=== PATIENT | male | born 1930 | race Asian ===

== ENCOUNTER 2019-12-22 23:55 | Inpatient (IN) | payer MEDICARE, OTHER ==
[~2019-12-22] VITALS: Ht 170.2 cm; Wt 56.7 kg
[2019-12-23] MEDS ORDERED: OLAN5TAB3 PO (02:53)
[2019-12-23] MEDS ORDERED: LEVO137T2 PO (02:53)
[2019-12-23] MEDS ORDERED: DONE5TAB7 PO (02:53)
[2019-12-23] MEDS ORDERED: CYCL30DR EACHEYE (02:53)
[2019-12-23] MEDS ORDERED: GABA-532 PO (02:53)
[2019-12-23] MEDS ORDERED: TRAZ-182 PO (02:53)
[2019-12-23] MEDS ORDERED: OMEP20TA20 PO (02:53)
[2019-12-23] MEDS ORDERED: GLIP5TAB3 PO (02:53)
[2019-12-23] MEDS ORDERED: TRAM50TA PO (02:53)
[2019-12-23] MEDS ORDERED: METF-442 PO (02:53)
[2019-12-23] MEDS ORDERED: CYAN-51 PO (02:53)
[2019-12-23] MEDS ORDERED: SODI15DR7 EACHEYE (02:53)
[2019-12-23] MEDS ORDERED: BIMA2.5D5 EACHEYE (02:53)
[2019-12-23] MEDS ORDERED: GABA-536 PO (02:53)
[2019-12-23] MEDS ORDERED: ICOS1CAP PO (02:53)
[2019-12-23] MEDS ORDERED: SIMV-46 PO (02:53)
[2019-12-23] MEDS ORDERED: AMLO5TAB4 PO (02:53)
[2019-12-23] MEDS ORDERED: BUPR75TA21 PO (02:53)
[2019-12-23] MEDS ORDERED: METO25TA6 PO (02:53)
[2019-12-23] MEDS ORDERED: BRIM5DRO2 EACHEYE (02:53)
[2019-12-23] MEDS ORDERED: NETA2.5D EACHEYE (02:53)
[2019-12-23 02:59] VITALS: BP 128/74
--- NOTE | 2019-12-23 03:23 | NUR ---
GPS RN NOTE: ADMISSION NOTE PT ARRIVED ON THE UNIT @ 0200, PT IS COMING FROM HOME, PT IS A/O X1-2, CALM, COOPERATIVE, FLAT, BLUNT AFFECT, CONFUSED, REDIRECTABLE. PER HOLD PT IS ON A 5150 HOLD DUE TO GD, PT WAS UNABLE TO WALK, RECALL SPECIFIC EVENTS, RECALL PLACE AND TIME AND WHERE HE WAS, HE BELIEVED THAT HE WAS THE POLICE AND THAT HE WAS IN [place]. PT HAS MEDICAL HX BPH, DM, HTN, GERD, HIGH CHOLESTEROL, DEMENTIA WITH PSYCHOSIS. WHEN ASKING PT DOES HE KNOW WHY HE IS HERE HE STATED THAT HE DOES NOT KNOW, HE DOES NOT KNOW HOW HE ENDED UP HERE, ONCE REDIRECTED PT APOLOGIZED AND SAID THAT HE HAS DIFFICULTY RECALLING THINGS, PT DENIES SI/HI, PT STATED HE HAS AUDITORY HALLUCINATION AND STATES THE VOICES DONT TELL HIM ANYTHING SERIOUS. PT SAID HE WAS A FORMER SMOKER AND QUIT 27 YEARS AGO, PT DENIES ANY ALCOHOL OR SUBSTANCE ABUSE. PT IS COVID NEGATIVE, PT DENIES PAIN AT THIS TIME, NO DISTRESS NOTED, VSS. SKIN ASSESSMENT DONE AND PATIENT HAD MULTIPLE ABRASIONS THROUGHOUT THE BODY AND WAS UNABLE TO RECALL WHAT HAPPENED. PT STATED THAT HE CAN'T REMEMBER IF HE GOT THE FLU VACCINE BUT HE GETS IT EVERY YEAR AND WOULD LIKE TO TALK TO HIS SON IN THE MORNING AND ASK HIM ABOUT IT, HE ALSO CAN NOT RECALL IF HE RECEIVED THE PNA VACCINE, WILL FOLLOW UP WITH FAMILY IN THE AM. DR. VYAS AND DR. ADAM WERE MADE AWARE OF THE PTS ARRIVAL ON THE UNIT, DR. ADAM SAID HE WAS GOING TO DO THE MED RECON, PT ADVISED OF HOLD, ADVISMENT AND PTS RIGHT OOKLET GIVEN TO THE PT, ALL NEEDS MET AT THIS TIME, WILL CONTINUE TO MONITOR Q15MIN FOR SAFETY AND BEHAVIOR.
[2019-12-23] MEDS ORDERED: DEXTROSE 50%-WATER 50 ML DISP.SYRIN IV PRN (03:30)
[2019-12-23] MEDS ORDERED: AMLODIPINE BESYLATE 5 MG TABLET PO PRN (03:30)
[2019-12-23] MEDS ORDERED: BLOOD SUGAR DIAGNOSTIC 1 EACH STRIP IN ONE (04:00)
[2019-12-23] MEDS ORDERED: MAGNESIUM HYDROXIDE 30 ML UDC PO PRN (04:00)
[2019-12-23] MEDS ORDERED: MAG HYDROX/AL HYDROX/SIMETH 30 ML UDC PO PRN (04:00)
[2019-12-23] MEDS: TEMAZEPAM 7.5 MG CAPSULE PO PRN ×2 (04:36→23:03)
--- NOTE | 2019-12-23 04:41 | NUR ---
GPS RN NOTE: INSOMNIA PT C/O OF HAVING DIFFICULTY SLEEPING, ADMIN RESTORIL PRN @ 4912, WILL REASSESS AND CONTINUE TO MONITOR Q15MIN FOR SAFETY AND BEHAVIOR
--- NOTE | 2019-12-23 06:18 | NUR ---
GPS RN NOTES: NOTIFIED PTS SON SA IN REGARDS TO HIS FATHERS ADMISSION. PER SON HIS FATHER WAS GETTING WORSE AT HOME LIVING WITH HIM. HE STATED THAT HE GAVE 5 EYE DROPS HIS DAD TAKES AT HOME TO THE HOSPITAL HE WAS ADMITTED BEFORE COMING TO [facility]. PTS SON SAID HE WILL CALL THE HOSPITAL TO CONFIRM WITH THEM IF THEY HAVE IT. UPON ADMISSION NO EYE DROPS WERE WITH HIM. SON WILL CALL BACK TO CONFIRM. THE SON ALSO STATED THAT HIS FATHER HAS NOT TAKEN HIS FLU AND PNEUMO VACCINE SINCE LAST YEAR. OFFERED PT FOR BOTH VACCINATION, PT SHOOK HIS HEAD AND STATED, "NO." EXPLAIN RISKS AND BENEFITS, PT STILL REFUSED X3. WILL ENDORSE TO DAY SHIFT. CONTINUE TO MONITOR.
[2019-12-23] MEDS: LEVOTHYROXINE SODIUM 137 MCG TABLET PO SCH (07:05)
[2019-12-23 08:00] VITALS: BP 102/56
[2019-12-23] MEDS: BLOOD SUGAR DIAGNOSTIC 1 EACH STRIP IN SCH ×4 (08:45→21:48)
[2019-12-23] MEDS: glipiZIDE 5 MG TABLET PO SCH ×2 (08:46→16:05)
[2019-12-23] MEDS: METFORMIN 500 MG TABLET PO SCH ×2 (08:46→16:05)
[2019-12-23] MEDS: TRAMADOL HCL 50 MG TABLET PO SCH ×2 (08:46→16:05)
[2019-12-23] MEDS: CYANOCOBALAMIN 500 MCG TABLET PO SCH (08:46)
[2019-12-23] MEDS ORDERED: Medication Not On Formulary EA (Icosapent Ethyl (Vascepa) 1 GM) PO SCH (09:00)
[2019-12-23] MEDS: TIMOLOL 0.5% SOLN OPHTH 5 ML BOTTLE EACHEYE SCH ×2 (09:03→17:42)
[2019-12-23] MEDS: BRIMONIDINE TARTRATE OPHT SOLN 5 ML BOTTLE EACHEYE SCH ×2 (09:03→17:42)
[2019-12-23] MEDS: SODIUM CHLORIDE 5% SOLN OPHTH 15 ML BOTTLE EACHEYE SCH ×4 (09:04→21:10)
[2019-12-23] MEDS: OLANZAPINE 5 MG/TAB.RAPDIS PO SCH ×2 (10:20→16:05)
[2019-12-23] MEDS: GABAPENTIN 400 MG CAPSULE PO SCH (10:21)
[2019-12-23] MEDS: DIVALPROEX SODIUM 125 MG CAP.SPRINK PO SCH ×3 (10:21→16:05)
--- NOTE | 2019-12-23 10:53 | NUR ---
DPOA Contact: SW called the pts son and DPOA, Zoila ([phone]), who stated that the pt has been living in his home with his but they can no longer take care of him. He stated that he would want the SW to assist with placement. SW asked for the pts son to send the DPOA paperwork so that it can be placed in the chart and then informed him of the discharge options. Pts son stated that he has heard of a snf facility called [facility] and would like a locked facility for the pt. SW stated that she will keep him updated.
--- NOTE | 2019-12-23 11:38 | NUR ---
Initial Discharge Plan: Pt currently resides with his son, Zoila ([phone]), in his home located at [address] [place] [address]. Per pts son, pt cannot return to the home and will need SNF placement. LUIS MIGUEL will work with the pt, the DPOA, and the MD regarding appropriate discharge planning. SW will form a safe and proper discharge plan.
[2019-12-23] MEDS: INSULIN REGULAR, HUMAN 100 UNIT/ML 3 ML VIAL SQ PRN (11:42)
[2019-12-23 16:00] VITALS: BP 111/66
[2019-12-23 16:13] LABS: BASOPHILS # (AUTO) 0.1 /CMM (0.0-0.2); BASOPHILS % (AUTO) 0.8 % (0.0-2.0); EOSINOPHILS % (AUTO) 1.1 % (0.0-6.0); HEMATOCRIT 41 % (39-51); HEMOGLOBIN 13.2 g/dL (13.5-17.5); LYMPHOCYTES # (AUTO) 2.1 /CMM (0.8-4.8); LYMPHOCYTES % (AUTO) 19.4 % (20.0-44.0); MEAN CORPUSCULAR HGB CONC 33 g/dl (31.0-36.0); MEAN CORPUSCULAR VOLUME 95 fL (80-96); MONOCYTES # (AUTO) 0.6 /CMM (0.1-1.30); MONOCYTES % (AUTO) 5.7 % (2.0-12.0); NEUTROPHILS # (AUTO) 7.9 /CMM (1.8-8.9); PLATELET COUNT (AUTO) 239 /CMM (150-450); RED BLOOD CELL COUNT(AUTO) 4.25 MIL/uL (4.5-6.0); WHITE BLOOD COUNT (AUTO) 10.8 K/uL (4.3-11.0)
[2019-12-23 16:51] LABS: ALBUMIN 3.1 g/dL (3.4-5.0); BILIRUBIN,TOTAL 0.4 mg/dL (0.2-1.0); CALCIUM, SERUM 8.7 mg/dL (8.5-10.1); CREATININE 1.2 mg/dL (0.6-1.3); MAGNESIUM 2.1 mg/dL (1.8-2.4); PHOSPHORUS 3.7 mg/dL (2.5-4.9); POTASSIUM 4.2 mmol/L (3.5-5.1); TOTAL PROTEIN, SERUM 6.8 g/dL (6.4-8.2)
[2019-12-23 17:00] LABS: PROSTATE SPECIFIC ANTIGEN SCR 2.05 ng/mL (0.00-4.00); THYROID STIMULATING HORMONE 0.47 uIU/mL (0.358-3.74)
[2019-12-23 20:17] VITALS: BP 97/59
[2019-12-23] MEDS: LATANOPROST EYE DROP 0.005% 2.5 ML BOTTLE EACHEYE SCH (21:07)
[2019-12-23] MEDS: SIMVASTATIN 20 MG TABLET PO SCH (21:10)
[2019-12-23] MEDS: GABAPENTIN 100 MG CAPSULE PO SCH (21:18)
[2019-12-23] MEDS ORDERED: GABAPENTIN 100 MG CAPSULE PO SCH (22:00)
--- NOTE | 2019-12-23 22:49 | NUR ---
GPS-RN NOTE: PATIENT BLOOD SUGAR WAS 50MG/DL. SNACKS GIVEN, TOLERATED WELL. RECHECKED AFTER 20MINS, BLOOD SUGAR RESULTED TO 62MG/DL. NOTIFIED DR. ADAM WITH ORDER TO DISCONTINUE GLUCOTROL 5MG PO BID NOTED AND CARRIED OUT.
--- NOTE | 2019-12-23 23:03 | NUR ---
GPS-RN NOTE: INSOMNIA PATIENT UNABLE TO SLEEP. ADMINISTERED RESTORIL 7.5MG PO ORDERED. WILL CONTINUE TO MONITOR FOR PT'S SAFETY.
[2019-12-24] MEDS: LORAZEPAM 0.5 MG TABLET PO PRN ×2 (02:22→20:52)
--- NOTE | 2019-12-24 02:22 | NUR ---
GPS-RN NOTE: ANXIETY PATIENT IS ANXIOUS AND RESTLESS. ADMINISTERED ATIVAN 0.5MG PO ORDERED. WILL CONTINUE TO MONITOR FOR PATIENT'S SAFETY.
[2019-12-24 06:46] LABS: ALANINE AMINOTRANSFERASE 52 U/L (12-78); ALBUMIN 2.9 g/dL (3.4-5.0); ALKALINE PHOSPHATASE 92 U/L (46-116); ASPARTATE AMINOTRANSFERASE 33 U/L (15-37); BILIRUBIN,TOTAL 0.3 mg/dL (0.2-1.0); CALCIUM, SERUM 8.8 mg/dL (8.5-10.1); CARBON DIOXIDE 28 mmol/L (21-32); CHLORIDE 103 mmol/L (98-107); CREATININE 1.4 mg/dL (0.6-1.3); GLUCOSE 110 mg/dL (74-106); POTASSIUM 4.3 mmol/L (3.5-5.1); SODIUM SERUM 141 mmol/L (136-145); TOTAL PROTEIN, SERUM 6.5 g/dL (6.4-8.2); UREA NITROGEN, BLOOD 38 mg/dL (7-18)
[2019-12-24] MEDS: LEVOTHYROXINE SODIUM 137 MCG TABLET PO SCH (07:00)
[2019-12-24] MEDS: BLOOD SUGAR DIAGNOSTIC 1 EACH STRIP IN SCH ×4 (07:17→21:52)
--- NOTE | 2019-12-24 07:17 | NUR ---
GPS TREATER: NOTES BLOOD GLUCOSE RANDOM LEVEL THIS MORNING DRAW DI=[phone].
--- NOTE | 2019-12-24 07:26 | NUR ---
GPS ACQUISITION MARKETING COORDINATOR: NOTES PT SOUNDS ASLEEP AT THIS TIME, PER REPORT PT DID NOT SLEEP ALL NIGHT. WILL CONTINUE TO MONITOR.
[2019-12-24] MEDS: CYANOCOBALAMIN 500 MCG TABLET PO SCH (08:50)
[2019-12-24] MEDS: TRAMADOL HCL 50 MG TABLET PO SCH ×2 (08:50→16:57)
[2019-12-24] MEDS: BRIMONIDINE TARTRATE OPHT SOLN 5 ML BOTTLE EACHEYE SCH ×2 (08:51→17:00)
[2019-12-24] MEDS: SODIUM CHLORIDE 5% SOLN OPHTH 15 ML BOTTLE EACHEYE SCH ×4 (08:51→21:52)
[2019-12-24] MEDS: GABAPENTIN 400 MG CAPSULE PO SCH (08:51)
[2019-12-24] MEDS: TIMOLOL 0.5% SOLN OPHTH 5 ML BOTTLE EACHEYE SCH ×2 (08:51→17:03)
[2019-12-24] MEDS: METFORMIN 500 MG TABLET PO SCH ×2 (08:51→17:03)
[2019-12-24] MEDS: DIVALPROEX SODIUM 125 MG CAP.SPRINK PO SCH ×3 (08:51→16:57)
[2019-12-24] MEDS: OLANZAPINE 5 MG/TAB.RAPDIS PO SCH ×2 (08:52→16:56)
--- NOTE | 2019-12-24 10:31 | NUR ---
gps greeter guest services: md visit seen by lj (acnp) with orders. orders acknowledged. code status change to dnr/dni per polst.
[2019-12-24] MEDS: RESTASIS EYE EACHEYE SCH ×2 (12:39→16:56)
[2019-12-24 16:00] VITALS: BP 123/52
[2019-12-24 19:55] VITALS: BP 105/65
--- NOTE | 2019-12-24 20:53 | NUR ---
GPS/RN PATIENT IS VERY AGITATED AT THIS, ATIVAN 0.5 MG PO WAS GIVEN ORDERED. WILL MONITOR.
[2019-12-24] MEDS: GABAPENTIN 100 MG CAPSULE PO SCH (21:53)
[2019-12-24] MEDS: SIMVASTATIN 20 MG TABLET PO SCH (21:53)
--- NOTE | 2019-12-24 22:00 | NUR ---
GPS/RN PATIENT IS MORE CALM AT THIS TIME, NO DISTRESS NOTED. WILL CONTINUE TO MONITOR.
[2019-12-24] MEDS: LATANOPROST EYE DROP 0.005% 2.5 ML BOTTLE EACHEYE SCH (23:03)
[2019-12-24] MEDS: TEMAZEPAM 7.5 MG CAPSULE PO PRN (23:49)
--- NOTE | 2019-12-24 23:53 | NUR ---
GPS/RN PATIENT IS STILL AWAKE, AGITATED AND RESTLESS, TEMAZEPAM PO ORDERED WAS GIVEN. WILL CONTINUE TO MONITOR.
[2019-12-25 02:08] LABS: APPEARANCE,URINE CLEAR (CLEAR); BILIRUBIN,URINE NEGATIVE (NEGATIVE); BLOOD, URINE NEGATIVE Ery/uL (NEGATIVE); COLOR,URINE YELLOW (YELLOW); KETONES,URINE TRACE (NEGATIVE); LEUKOCYTE ESTERASE ,URINE NEGATIVE (NEGATIVE); NITRITE, URINE NEGATIVE (NEGATIVE); PROTEIN,URINE NEGATIVE (NEGATIVE); UGLUCOSE NEGATIVE (NEGATIVE); UROBILINOGEN,URINE 0.2 EU/dL (0.2)
[2019-12-25 02:48] LABS: BACTERIA,URINE None seen /HPF (None Seen); RBC,URINE 0-2 /HPF (0-2); SQUAMOUS EPITHELIAL CELL,UR Few /HPF (None Seen); WBC,URINE 0-2 /HPF (0-3)
[2019-12-25] MEDS: LEVOTHYROXINE SODIUM 137 MCG TABLET PO SCH (06:16)
[2019-12-25 08:00] VITALS: BP 139/63
[2019-12-25] MEDS: RESTASIS EYE EACHEYE SCH ×2 (09:14→16:35)
[2019-12-25] MEDS: TIMOLOL 0.5% SOLN OPHTH 5 ML BOTTLE EACHEYE SCH ×2 (09:14→16:36)
[2019-12-25] MEDS: SODIUM CHLORIDE 5% SOLN OPHTH 15 ML BOTTLE EACHEYE SCH ×4 (09:15→21:55)
[2019-12-25] MEDS: BRIMONIDINE TARTRATE OPHT SOLN 5 ML BOTTLE EACHEYE SCH ×2 (09:15→16:35)
[2019-12-25] MEDS: BLOOD SUGAR DIAGNOSTIC 1 EACH STRIP IN SCH ×4 (09:15→21:59)
[2019-12-25] MEDS: CYANOCOBALAMIN 500 MCG TABLET PO SCH (09:15)
[2019-12-25] MEDS: METFORMIN 500 MG TABLET PO SCH ×2 (09:16→16:36)
[2019-12-25] MEDS: OLANZAPINE 5 MG/TAB.RAPDIS PO SCH ×2 (09:16→16:37)
[2019-12-25] MEDS: DIVALPROEX SODIUM 125 MG CAP.SPRINK PO SCH ×3 (09:16→16:36)
[2019-12-25] MEDS: TRAMADOL HCL 50 MG TABLET PO SCH ×2 (09:18→16:36)
[2019-12-25] MEDS: GABAPENTIN 400 MG CAPSULE PO SCH (09:26)
[2019-12-25 16:00] VITALS: BP 129/62
[2019-12-25 20:54] VITALS: BP 106/56
[2019-12-25] MEDS: SIMVASTATIN 20 MG TABLET PO SCH (21:55)
[2019-12-25] MEDS: GABAPENTIN 100 MG CAPSULE PO SCH (21:55)
[2019-12-25] MEDS: LATANOPROST EYE DROP 0.005% 2.5 ML BOTTLE EACHEYE SCH (21:55)
[2019-12-25] MEDS: INSULIN REGULAR, HUMAN 100 UNIT/ML 3 ML VIAL SQ PRN (22:03)
[2019-12-26] MEDS: TEMAZEPAM 7.5 MG CAPSULE PO PRN ×2 (00:24→22:21)
--- NOTE | 2019-12-26 00:24 | NUR ---
GPS RN NOTE: INSOMNIA Pt awake in gerichair, Restoril 7.5mg PO PRN given as ordered. Will continue to monitor.
[2019-12-26] MEDS: LORAZEPAM 0.5 MG TABLET PO PRN ×2 (02:42→22:20)
--- NOTE | 2019-12-26 02:43 | NUR ---
GPS RN NOTE: ANXIETY Pt noted to be restless and anxious. Ativan 0.5mg PO PRN administered as ordered. Will continue to monitor.
[2019-12-26] MEDS: LEVOTHYROXINE SODIUM 137 MCG TABLET PO SCH (06:32)
[2019-12-26 08:00] VITALS: BP 130/73
[2019-12-26] MEDS: RESTASIS EYE EACHEYE SCH ×2 (09:00→16:24)
[2019-12-26] MEDS: OLANZAPINE 5 MG/TAB.RAPDIS PO SCH ×2 (09:37→16:20)
[2019-12-26] MEDS: BLOOD SUGAR DIAGNOSTIC 1 EACH STRIP IN SCH ×5 (09:37→22:52)
[2019-12-26] MEDS: DIVALPROEX SODIUM 125 MG CAP.SPRINK PO SCH ×3 (09:37→16:20)
[2019-12-26] MEDS: METFORMIN 500 MG TABLET PO SCH ×2 (09:38→16:20)
[2019-12-26] MEDS: GABAPENTIN 400 MG CAPSULE PO SCH (09:38)
[2019-12-26] MEDS: CYANOCOBALAMIN 500 MCG TABLET PO SCH (09:38)
[2019-12-26] MEDS: TRAMADOL HCL 50 MG TABLET PO SCH ×2 (09:38→15:03)
[2019-12-26] MEDS: TIMOLOL 0.5% SOLN OPHTH 5 ML BOTTLE EACHEYE SCH ×2 (09:40→16:23)
[2019-12-26] MEDS: SODIUM CHLORIDE 5% SOLN OPHTH 15 ML BOTTLE EACHEYE SCH ×4 (09:40→22:10)
[2019-12-26] MEDS: BRIMONIDINE TARTRATE OPHT SOLN 5 ML BOTTLE EACHEYE SCH ×2 (09:41→16:23)
[2019-12-26 16:00] VITALS: BP 144/73
--- NOTE | 2019-12-26 18:12 | NUR ---
Patient calm and cooperative; oriented x1, confused. Several unsuccessful attempts to collect urine for urinalysis. Will endorse to second shift supervisor
[2019-12-26 20:22] VITALS: BP 133/57
[2019-12-26] MEDS: SIMVASTATIN 20 MG TABLET PO SCH (22:09)
[2019-12-26] MEDS: LATANOPROST EYE DROP 0.005% 2.5 ML BOTTLE EACHEYE SCH (22:10)
[2019-12-26] MEDS: GABAPENTIN 100 MG CAPSULE PO SCH (22:20)
[2019-12-26] MEDS: INSULIN REGULAR, HUMAN 100 UNIT/ML 3 ML VIAL SQ PRN (22:48)
[2019-12-27] MEDS: LEVOTHYROXINE SODIUM 137 MCG TABLET PO SCH (06:10)
[2019-12-27] MEDS: BLOOD SUGAR DIAGNOSTIC 1 EACH STRIP IN SCH ×4 (07:33→21:47)
[2019-12-27 07:34] LABS: BASOPHILS # (AUTO) 0.1 /CMM (0.0-0.2); BASOPHILS % (AUTO) 0.9 % (0.0-2.0); EOSINOPHILS % (AUTO) 0.5 % (0.0-6.0); HEMATOCRIT 37 % (39-51); HEMOGLOBIN 11.9 g/dL (13.5-17.5); LYMPHOCYTES # (AUTO) 1.8 /CMM (0.8-4.8); LYMPHOCYTES % (AUTO) 21.6 % (20.0-44.0); MEAN CORPUSCULAR HGB CONC 33 g/dl (31.0-36.0); MEAN CORPUSCULAR VOLUME 95 fL (80-96); MONOCYTES # (AUTO) 0.6 /CMM (0.1-1.30); MONOCYTES % (AUTO) 6.6 % (2.0-12.0); NEUTROPHILS % (AUTO) 70.4 % (43.0-81.0); PLATELET COUNT (AUTO) 221 /CMM (150-450); RED BLOOD CELL COUNT(AUTO) 3.84 MIL/uL (4.5-6.0); WHITE BLOOD COUNT (AUTO) 8.6 K/uL (4.3-11.0)
[2019-12-27 07:57] LABS: ALBUMIN 2.9 g/dL (3.4-5.0); BILIRUBIN,TOTAL 0.5 mg/dL (0.2-1.0); CALCIUM, SERUM 8.7 mg/dL (8.5-10.1); MAGNESIUM 2.1 mg/dL (1.8-2.4); PHOSPHORUS 3.1 mg/dL (2.5-4.9); TOTAL PROTEIN, SERUM 6.6 g/dL (6.4-8.2)
[2019-12-27 08:00] VITALS: BP 120/46
--- NOTE | 2019-12-27 08:54 | NUR ---
LUIS MIGUEL Coordination of Care: This information writer faxed clinicals to Leroy ([phone]) for [facility] and will review.
[2019-12-27] MEDS: RESTASIS EYE EACHEYE SCH ×3 (09:00→16:52)
--- NOTE | 2019-12-27 09:00 | NUR ---
RN NOTE- PT IN PIERRE CHAIR,ALERT ORIENTED TO SELF, CONFUSED BUT INTERACTIVE AND CALM, LAUGHING AT TIMES, NO BEHAVIORAL ISSUES, MED COMPLIANT, EYE GTTS ADMINISTERED. RESTASIS EYE GTTS MISSING. SPOKE W FAMILY - WAS TOLD THEY WERE DELIVERED TO FACILITY. CALLED PHARMACY AND OBTAINED. EYE GTTS ADMINISTERED
[2019-12-27] MEDS: METFORMIN 500 MG TABLET PO SCH ×2 (09:06→16:52)
[2019-12-27] MEDS: GABAPENTIN 400 MG CAPSULE PO SCH (09:06)
[2019-12-27] MEDS: OLANZAPINE 5 MG/TAB.RAPDIS PO SCH ×2 (09:06→17:07)
[2019-12-27] MEDS: CYANOCOBALAMIN 500 MCG TABLET PO SCH (09:07)
[2019-12-27] MEDS: DIVALPROEX SODIUM 125 MG CAP.SPRINK PO SCH ×3 (09:07→16:52)
[2019-12-27] MEDS: BRIMONIDINE TARTRATE OPHT SOLN 5 ML BOTTLE EACHEYE SCH ×2 (09:11→16:51)
[2019-12-27] MEDS: TIMOLOL 0.5% SOLN OPHTH 5 ML BOTTLE EACHEYE SCH ×2 (09:11→16:51)
[2019-12-27] MEDS: SODIUM CHLORIDE 5% SOLN OPHTH 15 ML BOTTLE EACHEYE SCH ×4 (09:11→20:03)
[2019-12-27] MEDS: TRAMADOL HCL 50 MG TABLET PO SCH ×2 (09:12→16:52)
--- NOTE | 2019-12-27 11:44 | NUR ---
LUIS MIGUEL Coordination of Care: This food writer sent clinicals to Zeina antoine ([phone]) (F:[phone]) for review.
[2019-12-27] MEDS: INSULIN REGULAR, HUMAN 100 UNIT/ML 3 ML VIAL SQ PRN ×2 (11:55→21:49)
--- NOTE | 2019-12-27 12:11 | NUR ---
SNF Referral: Per arash Pastrana from [facility] ([phone]) pt is accepted.
[2019-12-27 16:00] VITALS: BP 107/62
[2019-12-27 20:02] VITALS: BP 125/64
[2019-12-27] MEDS: LATANOPROST EYE DROP 0.005% 2.5 ML BOTTLE EACHEYE SCH (21:50)
[2019-12-27] MEDS: SIMVASTATIN 20 MG TABLET PO SCH (21:50)
[2019-12-27] MEDS: GABAPENTIN 100 MG CAPSULE PO SCH (21:50)
[2019-12-27] MEDS: TEMAZEPAM 7.5 MG CAPSULE PO PRN (23:48)
--- NOTE | 2019-12-27 23:50 | NUR ---
GPS RN NOTES: INSOMNIA UPON DOING ROUNDS, PT AWAKE. OFFERED RESTORIL PRN ORDERED. PT AGREED AND TOLERATED MEDICATION WELL. CONTINUE TO MONITOR
[2019-12-28] MEDS: BLOOD SUGAR DIAGNOSTIC 1 EACH STRIP IN SCH ×4 (07:04→21:26)
[2019-12-28] MEDS: INSULIN REGULAR, HUMAN 100 UNIT/ML 3 ML VIAL SQ PRN ×2 (07:05→21:26)
[2019-12-28] MEDS: LEVOTHYROXINE SODIUM 137 MCG TABLET PO SCH (07:28)
[2019-12-28 08:00] VITALS: BP 102/55
[2019-12-28] MEDS: CYANOCOBALAMIN 500 MCG TABLET PO SCH (08:47)
[2019-12-28] MEDS: OLANZAPINE 5 MG/TAB.RAPDIS PO SCH ×2 (08:47→17:21)
[2019-12-28] MEDS: GABAPENTIN 400 MG CAPSULE PO SCH (08:47)
[2019-12-28] MEDS: DIVALPROEX SODIUM 125 MG CAP.SPRINK PO SCH ×3 (08:47→17:22)
[2019-12-28] MEDS: TRAMADOL HCL 50 MG TABLET PO SCH ×2 (08:53→17:22)
[2019-12-28] MEDS: METFORMIN 500 MG TABLET PO SCH ×2 (08:55→17:22)
[2019-12-28] MEDS: RESTASIS EYE EACHEYE SCH ×2 (09:00→17:19)
--- NOTE | 2019-12-28 09:00 | NUR ---
RN NOTE- PT CONFUSED ORIENTED TO SELF ONLY, ASLERT MED COMPLIANT, PO INTAKE FAIR, DISORGANIZED AND TEARFUL AT TIMES, DIRECTABLE NEEDS ATTENDED, WOUND CARE CONSULT BEING DONE
[2019-12-28] MEDS: TIMOLOL 0.5% SOLN OPHTH 5 ML BOTTLE EACHEYE SCH ×2 (09:01→17:19)
[2019-12-28] MEDS: BRIMONIDINE TARTRATE OPHT SOLN 5 ML BOTTLE EACHEYE SCH ×2 (09:01→17:19)
[2019-12-28] MEDS: SODIUM CHLORIDE 5% SOLN OPHTH 15 ML BOTTLE EACHEYE SCH ×4 (09:01→20:01)
--- NOTE | 2019-12-28 11:47 | NUR ---
WOUND CARE CONSULT: PT PRESENTS WITH DRY ABRASIONS TO LEFT SHOULDER, BACK AND LEFT FOOT. NO DRAINAGE, ERYTHEMA OR TENDERNESS NOTED. PT IS VERY UNSTEADY ON HIS FEET. RECOMMENDATIONS MADE FOR SKIN PROTECTION. DISCUSSED WITH NURSING STAFF. WILL SEE PRN. CARDOZO IN AGREEMENT WITH PLAN OF CARE.
--- NOTE | 2019-12-28 12:01 | NUR ---
PROBABLE CAUSE HEARING: Patient probable cause hearing was today and it was upheld for grave disability.
--- NOTE | 2019-12-28 12:10 | NUR ---
SW Family Contact: This securities underwriter spoke with pt's son ADDI Cummings ([phone]) who stated he toured [facility] and would want pt to discharge at [place] when pt is ready.
[2019-12-28] MEDS: Z GUARD REMEDY 2 OZ OINT TP SCH (12:18)
[2019-12-28 16:00] VITALS: BP 109/55
[2019-12-28] MEDS: GLUCERNA SHAKE 237 ML CAN PO SCH ×2 (16:20→17:22)
--- NOTE | 2019-12-28 18:05 | NUR ---
RN NOTE- UA CX COLLECTED AND LAB CALLED
[2019-12-28 20:13] VITALS: BP 118/67
[2019-12-28] MEDS: GABAPENTIN 100 MG CAPSULE PO SCH (21:23)
[2019-12-28] MEDS: SIMVASTATIN 20 MG TABLET PO SCH (21:23)
[2019-12-28] MEDS: LATANOPROST EYE DROP 0.005% 2.5 ML BOTTLE EACHEYE SCH (21:26)
--- NOTE | 2019-12-28 21:39 | NUR ---
GPS RN NOTES: REFUSED EYE DROP AND ACCU CHECK PT REFUSED XALARON EYE DROPS AND ACCU CHECK THAT IS DUE. PT INCREASED AGITATION ANS STATED, "NO HONEY. NO. NO!" EXPLAIN RISKS AND BENEFITS. PT STILL REFUSED X3. CONTINUE TO MONITOR.
[2019-12-28] MEDS: TEMAZEPAM 7.5 MG CAPSULE PO PRN (22:38)
--- NOTE | 2019-12-28 22:40 | NUR ---
GPS RN NOTES: INSOMNIA UPON DOING ROUNDS, PT AWAKE. OFFERED RESTORIL PRN ORDERED. PT AGREED AND TOLERATED MEDICATION WELL. CONTINUE TO MONITOR
[2019-12-29] MEDS: LORAZEPAM 0.5 MG TABLET PO PRN ×2 (01:40→20:25)
--- NOTE | 2019-12-29 01:44 | NUR ---
GPS RN NOTES: ANXIOUS UPON DOING ROUNDS, PT PULLING OFF DIAPER, YELLING IN FARSI, AND TAKING OFF CLOTHES. ENCOURAGE PT TO EXPRESS THOUGHTS AND FEELINGS TO STAFF. PT INCREASED AGITATION AND GETTING OFF THE BED. TRANSFER PT IN PIERRE CHAIR. PT BANGING ON PIERRE CHAIR, CLAPPING HIS HANDS, ANXIOUS, AND YELLING, "NO NO!". NO SOB. NO RESP DISTRESS. BREATHING EVEN AND UNLABORED. OFFERED ATIVAN 0.5MG PO PRN ORDERED. PT AGREED AND TOLERATED MEDICATION WELL. STAFF MEMBER WITH PT FOR MONITORING IN THE DAY ROOM. CONTINUE TO MONITOR
[2019-12-29 08:00] VITALS: BP 130/79
[2019-12-29] MEDS: GLUCERNA SHAKE 237 ML CAN PO SCH ×3 (08:00→17:13)
[2019-12-29] MEDS: BLOOD SUGAR DIAGNOSTIC 1 EACH STRIP IN SCH ×4 (08:33→22:30)
[2019-12-29] MEDS: Z GUARD REMEDY 2 OZ OINT TP SCH (09:40)
[2019-12-29] MEDS: CYANOCOBALAMIN 500 MCG TABLET PO SCH (09:40)
[2019-12-29] MEDS: METFORMIN 500 MG TABLET PO SCH ×2 (09:41→17:00)
[2019-12-29] MEDS: OLANZAPINE 5 MG/TAB.RAPDIS PO SCH ×2 (09:41→17:00)
[2019-12-29] MEDS: TRAMADOL HCL 50 MG TABLET PO SCH ×2 (09:41→17:00)
[2019-12-29] MEDS: GABAPENTIN 400 MG CAPSULE PO SCH (09:41)
[2019-12-29] MEDS: DIVALPROEX SODIUM 125 MG CAP.SPRINK PO SCH ×3 (09:42→17:28)
[2019-12-29] MEDS: BRIMONIDINE TARTRATE OPHT SOLN 5 ML BOTTLE EACHEYE SCH ×2 (09:42→17:00)
[2019-12-29] MEDS: LEVOTHYROXINE SODIUM 137 MCG TABLET PO SCH (09:42)
[2019-12-29] MEDS: SODIUM CHLORIDE 5% SOLN OPHTH 15 ML BOTTLE EACHEYE SCH ×4 (09:43→21:25)
[2019-12-29] MEDS: TIMOLOL 0.5% SOLN OPHTH 5 ML BOTTLE EACHEYE SCH ×2 (09:43→17:00)
[2019-12-29] MEDS: RESTASIS EYE EACHEYE SCH ×2 (10:31→17:00)
[2019-12-29] MEDS: INSULIN REGULAR, HUMAN 100 UNIT/ML 3 ML VIAL SQ PRN ×3 (13:06→22:34)
--- NOTE | 2019-12-29 15:49 | NUR ---
Individual Intervention: This specification writer met with pt for brief counseling. Pt appeared disorganized and disoriented. Pt was unable to comprehend and expect counseling at this time.
[2019-12-29 16:00] VITALS: BP 116/60
[2019-12-29 19:51] VITALS: BP 142/58
[2019-12-29 19:58] VITALS: BP 132/67
--- NOTE | 2019-12-29 20:26 | NUR ---
GPS RN NOTE: ANXIETY PATIENT NOTED TO BE ANXIOUS, RESTLESS, AGITATED & IRRITABLE. VITALS CHECKED & WNL. PRN ATIVAN 0.5 MG PO GIVEN. WILL CONTINUE TO MONITOR.
--- NOTE | 2019-12-29 21:00 | NUR ---
GPS RN NOTE: REFUSED SKIN ASSESSMENT PATIENT REFUSED SKIN ASSESSMENT X 3 DESPITE OF RISKS & BENEFITS EXPLANATIONS.KEEPS MOVING EXTREMITIES, UNCOOPERATIVE, AGITATED, ANGRY, COMBATIVE. VISIBLE SKIN DISCOLORATION NOTED ON BOTH ARMS, HANDS, LEGS & FEET. WILL TRY TO REASSESS SKIN LATER IF PATIENT IS COOPERATIVE. KEPT SKIN CLEAN AND DRY, WILL CONTINUE TO MONITOR.
[2019-12-29] MEDS: LATANOPROST EYE DROP 0.005% 2.5 ML BOTTLE EACHEYE SCH (22:08)
[2019-12-29] MEDS: SIMVASTATIN 20 MG TABLET PO SCH (22:08)
[2019-12-29] MEDS: GABAPENTIN 100 MG CAPSULE PO SCH (22:09)
[2019-12-30] MEDS: Z GUARD REMEDY 2 OZ OINT TP PRN (03:22)
--- NOTE | 2019-12-30 06:06 | NUR ---
GPS RN NOTE: REFUSED SKIN ASSESSMENT PATIENT CONTINUED TO REFUSE SKIN ASSESSMENT X 3 DESPITE OF RISKS & BENEFITS EXPLANATIONS. UNPREDICTABLE, UNCOOPERATIVE, AGITATED, COMBATIVE. KEPT SKIN CLEAN AND DRY, WILL CONTINUE TO MONITOR.
[2019-12-30 08:00] VITALS: BP 102/59
[2019-12-30] MEDS: GLUCERNA SHAKE 237 ML CAN PO SCH ×3 (08:19→16:04)
[2019-12-30] MEDS: BLOOD SUGAR DIAGNOSTIC 1 EACH STRIP IN SCH ×4 (08:19→21:50)
[2019-12-30] MEDS: INSULIN REGULAR, HUMAN 100 UNIT/ML 3 ML VIAL SQ PRN ×3 (08:20→17:13)
[2019-12-30] MEDS: DIVALPROEX SODIUM 125 MG CAP.SPRINK PO SCH ×3 (09:02→16:03)
[2019-12-30] MEDS: CYANOCOBALAMIN 500 MCG TABLET PO SCH (09:02)
[2019-12-30] MEDS: GABAPENTIN 400 MG CAPSULE PO SCH (09:02)
[2019-12-30] MEDS: OLANZAPINE 5 MG/TAB.RAPDIS PO SCH ×2 (09:03→16:04)
[2019-12-30] MEDS: LEVOTHYROXINE SODIUM 137 MCG TABLET PO SCH (09:03)
[2019-12-30] MEDS: METFORMIN 500 MG TABLET PO SCH ×2 (09:03→16:03)
[2019-12-30] MEDS: TRAMADOL HCL 50 MG TABLET PO SCH ×2 (09:03→16:04)
[2019-12-30] MEDS: Z GUARD REMEDY 2 OZ OINT TP SCH (09:03)
[2019-12-30] MEDS: BRIMONIDINE TARTRATE OPHT SOLN 5 ML BOTTLE EACHEYE SCH ×2 (09:05→16:05)
[2019-12-30] MEDS: SODIUM CHLORIDE 5% SOLN OPHTH 15 ML BOTTLE EACHEYE SCH ×4 (09:05→21:06)
[2019-12-30] MEDS: TIMOLOL 0.5% SOLN OPHTH 5 ML BOTTLE EACHEYE SCH ×2 (09:07→16:05)
[2019-12-30] MEDS: RESTASIS EYE EACHEYE SCH ×2 (09:07→16:04)
[2019-12-30 16:00] VITALS: BP 111/59
[2019-12-30 19:44] VITALS: BP 133/66
[2019-12-30] MEDS: LORAZEPAM 0.5 MG TABLET PO PRN (19:46)
--- NOTE | 2019-12-30 19:49 | NUR ---
GPS RN NOTE: ANXIETY PATIENT IS VERY ANXIOUS, RESTLESS, BANGING ON THE PIERRE CHAIR TRAY, PRN ATIVAN 0.5 MG 1 TAB GIVEN. WILL CONTINUE TO MONITOR.
[2019-12-30 20:00] VITALS: BP 133/66
[2019-12-30] MEDS: LATANOPROST EYE DROP 0.005% 2.5 ML BOTTLE EACHEYE SCH (21:50)
[2019-12-30] MEDS: GABAPENTIN 100 MG CAPSULE PO SCH (21:51)
[2019-12-30] MEDS: SIMVASTATIN 20 MG TABLET PO SCH (21:51)
[2019-12-30] MEDS: TEMAZEPAM 7.5 MG CAPSULE PO PRN (23:52)
--- NOTE | 2019-12-30 23:53 | NUR ---
GPS RN NOTE: INSOMNIA PATIENT IS UNABLE TO SLEEP, GETTING ANXIOUS & RESTLESS, PRN RESTORIL 7.5 MG PO GIVEN. WILL CONTINUE TO MONITOR FOR ANY CHANGES.
[2019-12-31] MEDS: Z GUARD REMEDY 2 OZ OINT TP PRN (05:01)
[2019-12-31] MEDS: LORAZEPAM 0.5 MG TABLET PO PRN ×2 (05:54→14:57)
--- NOTE | 2019-12-31 05:54 | NUR ---
GPS RN NOTE: ANXIETY PATIENT IS VERY ANXIOUS, RESTLESS, BANGING ON THE PIERRE CHAIR TRAY, SCREAMING, PRN ATIVAN 0.5 MG 1 TAB GIVEN. WILL CONTINUE TO MONITOR.
[2019-12-31] MEDS: BLOOD SUGAR DIAGNOSTIC 1 EACH STRIP IN SCH ×4 (07:32→21:54)
[2019-12-31] MEDS: INSULIN REGULAR, HUMAN 100 UNIT/ML 3 ML VIAL SQ PRN ×2 (07:38→17:23)
[2019-12-31] MEDS: GLUCERNA SHAKE 237 ML CAN PO SCH ×3 (07:55→16:47)
[2019-12-31] MEDS: LEVOTHYROXINE SODIUM 137 MCG TABLET PO SCH (07:55)
[2019-12-31 08:00] VITALS: BP 110/59
[2019-12-31] MEDS: BRIMONIDINE TARTRATE OPHT SOLN 5 ML BOTTLE EACHEYE SCH ×2 (08:00→17:00)
[2019-12-31] MEDS: TIMOLOL 0.5% SOLN OPHTH 5 ML BOTTLE EACHEYE SCH ×2 (08:00→17:01)
[2019-12-31] MEDS: SODIUM CHLORIDE 5% SOLN OPHTH 15 ML BOTTLE EACHEYE SCH ×4 (08:00→21:28)
[2019-12-31] MEDS: RESTASIS EYE EACHEYE SCH ×2 (08:04→18:00)
[2019-12-31] MEDS: CYANOCOBALAMIN 500 MCG TABLET PO SCH (08:48)
[2019-12-31] MEDS: GABAPENTIN 400 MG CAPSULE PO SCH (08:49)
[2019-12-31] MEDS: OLANZAPINE 5 MG/TAB.RAPDIS PO SCH ×2 (08:49→16:47)
[2019-12-31] MEDS: DIVALPROEX SODIUM 125 MG CAP.SPRINK PO SCH ×3 (08:49→16:46)
[2019-12-31] MEDS: METFORMIN 500 MG TABLET PO SCH ×2 (08:50→16:47)
[2019-12-31] MEDS: TRAMADOL HCL 50 MG TABLET PO SCH ×2 (08:50→16:47)
[2019-12-31] MEDS: Z GUARD REMEDY 2 OZ OINT TP SCH (09:37)
[2019-12-31] MEDS: ACETAMINOPHEN 325 MG TABLET PO PRN (14:57)
--- NOTE | 2019-12-31 14:58 | NUR ---
RN NOTE: ANXIETY AND PAIN PT EXHIBITING INCREASED ANXIETY AND AGITATION. C/O PAIN, UNABLE TO SCALE. MEDICATED WITH ATIVAN AND TYLENOL PO PRN.
[2019-12-31 16:00] VITALS: BP 106/62
[2019-12-31 17:02] LABS: BASOPHILS # (AUTO) 0.1 /CMM (0.0-0.2); BASOPHILS % (AUTO) 0.8 % (0.0-2.0); EOSINOPHILS % (AUTO) 1.8 % (0.0-6.0); HEMATOCRIT 38 % (39-51); HEMOGLOBIN 12.5 g/dL (13.5-17.5); LYMPHOCYTES # (AUTO) 0.9 /CMM (0.8-4.8); LYMPHOCYTES % (AUTO) 13.5 % (20.0-44.0); MEAN CORPUSCULAR HGB CONC 33 g/dl (31.0-36.0); MEAN CORPUSCULAR VOLUME 95 fL (80-96); MONOCYTES # (AUTO) 0.4 /CMM (0.1-1.30); MONOCYTES % (AUTO) 6.5 % (2.0-12.0); NEUTROPHILS # (AUTO) 5.1 /CMM (1.8-8.9); NEUTROPHILS % (AUTO) 77.4 % (43.0-81.0); PLATELET COUNT (AUTO) 263 /CMM (150-450); RED BLOOD CELL COUNT(AUTO) 3.98 MIL/uL (4.5-6.0); WHITE BLOOD COUNT (AUTO) 6.6 K/uL (4.3-11.0)
[2019-12-31 17:23] LABS: CALCIUM, SERUM 8.9 mg/dL (8.5-10.1); CREATININE 1.1 mg/dL (0.6-1.3); MAGNESIUM 2.2 mg/dL (1.8-2.4); POTASSIUM 4.6 mmol/L (3.5-5.1)
--- NOTE | 2019-12-31 19:55 | NUR ---
GPS RN NOTE: LEFT INDEX FINGER BLISTER WHILE OFFERING PO FLUIDS TO THE PATIENT, NOTED WITH LEFT INDEX FINGER BLISTER, DARK & INTACT, POSSIBLY DUE TO BANGING ON PIERRE CHAIR REPEATEDLY. NO DRAINAGE NOTED. NOTIFIED SHEEBA VILLA DNP WITH NEW ORDER OF WOUND CARE CONSULT. ORDER NOTED. PICTURE TAKEN & PLACED IN CHART. CASTING AND CURING OPERATOR NOTIFIED. WILL NOTIFY FAMILY IN AM. WILL CONTINUE TO MONITOR FOR ANY CHANGES.
[2019-12-31 20:00] VITALS: BP 104/74
[2019-12-31 20:37] VITALS: BP 104/74
--- NOTE | 2019-12-31 21:29 | NUR ---
GPS RN NOTE PATIENT'S BS IS 125MG/DL, NO INULIN GIVE. VITALS STABLE. AWAKE, RESTING IN PIERRE CHAIR, CLAM AT THIS TIME BUT PARANOID & DELUSIONAL & KEEPS WAVING HIS ARMS IN AIR. WILL CONTINUE TO MONITOR FOR ANY CHANGES.
[2019-12-31] MEDS: LATANOPROST EYE DROP 0.005% 2.5 ML BOTTLE EACHEYE SCH (21:55)
[2019-12-31] MEDS: GABAPENTIN 100 MG CAPSULE PO SCH (22:05)
[2019-12-31] MEDS: SIMVASTATIN 20 MG TABLET PO SCH (22:32)
[2020-01-01] MEDS: Z GUARD REMEDY 2 OZ OINT TP PRN (03:14)
[2020-01-01] MEDS: ACETAMINOPHEN 325 MG TABLET PO PRN (05:24)
--- NOTE | 2020-01-01 05:25 | NUR ---
GPS RN NOTE: PAIN PATIENT HAD C/O PAIN, UNABLE TO SCALE, FACIAL GRIMACING WHEN MOVING HIS UPPER & LOWER EXTREMITIES AROUND. PRN TYLENOL 650 MG PO GIVEN. WILL CONTINUE TO MONITOR.
--- NOTE | 2020-01-01 07:23 | NUR ---
GPS RN NOTE: NOTIFIED SON CALLED PT'S SON MARY CARMEN [phone] & LEFT A VOICEMAIL ABOUT LEFT INDEX FINGER BLISTER. ENDORSED TO AM RN.
[2020-01-01 08:00] VITALS: BP 134/65
[2020-01-01] MEDS: GLUCERNA SHAKE 237 ML CAN PO SCH ×3 (08:56→17:31)
[2020-01-01] MEDS: BLOOD SUGAR DIAGNOSTIC 1 EACH STRIP IN SCH ×4 (08:57→21:44)
[2020-01-01] MEDS: TRAMADOL HCL 50 MG TABLET PO SCH ×2 (08:57→17:00)
[2020-01-01] MEDS: LEVOTHYROXINE SODIUM 137 MCG TABLET PO SCH (08:57)
[2020-01-01] MEDS: RESTASIS EYE EACHEYE SCH ×2 (08:58→17:30)
[2020-01-01] MEDS: GABAPENTIN 400 MG CAPSULE PO SCH (08:58)
[2020-01-01] MEDS: OLANZAPINE 5 MG/TAB.RAPDIS PO SCH (08:58)
[2020-01-01] MEDS: METFORMIN 500 MG TABLET PO SCH ×2 (08:58→17:30)
[2020-01-01] MEDS: CYANOCOBALAMIN 500 MCG TABLET PO SCH (08:58)
[2020-01-01] MEDS: BRIMONIDINE TARTRATE OPHT SOLN 5 ML BOTTLE EACHEYE SCH ×2 (08:59→17:31)
[2020-01-01] MEDS: SODIUM CHLORIDE 5% SOLN OPHTH 15 ML BOTTLE EACHEYE SCH ×4 (08:59→21:44)
[2020-01-01] MEDS: TIMOLOL 0.5% SOLN OPHTH 5 ML BOTTLE EACHEYE SCH ×2 (08:59→17:31)
[2020-01-01] MEDS: Z GUARD REMEDY 2 OZ OINT TP SCH (09:00)
[2020-01-01] MEDS: DIVALPROEX SODIUM 125 MG CAP.SPRINK PO SCH ×3 (09:17→17:00)
[2020-01-01] MEDS: INSULIN REGULAR, HUMAN 100 UNIT/ML 3 ML VIAL SQ PRN ×2 (12:28→21:47)
--- NOTE | 2020-01-01 14:49 | NUR ---
Pt. is drowsy, v/s taken: BP 143/80, HR 109, RR 18, temp. 98.0 and oxygen sat 94%. Dr. Blank made aware and with orders.
[2020-01-01 16:00] VITALS: BP 107/78
--- NOTE | 2020-01-01 17:45 | NUR ---
GPS RN NOTE: HELD DEPAKOTE, PATIENT STILL DROWSY. VSS, AFEBRILE, NO ACUTE DISTRESS NOTED. WILL CONTINUE TO MONITOR.
--- NOTE | 2020-01-01 18:00 | NUR ---
GPS RN NOTE: DR. VYAS ORDERED NEURO CONSULT, LEFT MESSAGE AT DR. OSEI'S OFFICE.
[2020-01-01 20:21] VITALS: BP 124/54
[2020-01-01] MEDS: SIMVASTATIN 20 MG TABLET PO SCH (21:45)
[2020-01-01] MEDS: GABAPENTIN 100 MG CAPSULE PO SCH (21:45)
[2020-01-01] MEDS: LATANOPROST EYE DROP 0.005% 2.5 ML BOTTLE EACHEYE SCH (21:45)
[2020-01-01] MEDS ORDERED: OLANZAPINE 5 MG/TAB.RAPDIS PO SCH (22:00)
[2020-01-01] MEDS: TEMAZEPAM 7.5 MG CAPSULE PO PRN (22:33)
--- NOTE | 2020-01-01 22:40 | NUR ---
RN NOTES PRN Restoril administered. Patient not sleeping, still awake and vocal.
[2020-01-02] MEDS: LEVOTHYROXINE SODIUM 137 MCG TABLET PO SCH (06:25)
[2020-01-02 07:06] LABS: BASOPHILS # (AUTO) 0.1 /CMM (0.0-0.2); BASOPHILS % (AUTO) 0.4 % (0.0-2.0); HEMATOCRIT 37 % (39-51); HEMOGLOBIN 12.1 g/dL (13.5-17.5); LYMPHOCYTES # (AUTO) 0.6 /CMM (0.8-4.8); LYMPHOCYTES % (AUTO) 3.7 % (20.0-44.0); MEAN CORPUSCULAR HGB CONC 33 g/dl (31.0-36.0); MEAN CORPUSCULAR VOLUME 95 fL (80-96); MONOCYTES # (AUTO) 0.8 /CMM (0.1-1.30); MONOCYTES % (AUTO) 5.1 % (2.0-12.0); NEUTROPHILS # (AUTO) 13.9 /CMM (1.8-8.9); NEUTROPHILS % (AUTO) 90.8 % (43.0-81.0); PLATELET COUNT (AUTO) 293 /CMM (150-450); WHITE BLOOD COUNT (AUTO) 15.3 K/uL (4.3-11.0)
[2020-01-02] MEDS: BLOOD SUGAR DIAGNOSTIC 1 EACH STRIP IN SCH ×3 (07:28→17:33)
[2020-01-02 07:33] LABS: CALCIUM, SERUM 8.6 mg/dL (8.5-10.1); CREATININE 1.1 mg/dL (0.6-1.3); MAGNESIUM 2.1 mg/dL (1.8-2.4); PHOSPHORUS 3.3 mg/dL (2.5-4.9); POTASSIUM 5.1 mmol/L (3.5-5.1)
[2020-01-02 08:00] VITALS: BP 140/79
[2020-01-02] MEDS: GLUCERNA SHAKE 237 ML CAN PO SCH ×3 (08:00→17:00)
[2020-01-02] MEDS: DIVALPROEX SODIUM 125 MG CAP.SPRINK PO SCH ×3 (08:44→17:00)
[2020-01-02] MEDS: CYANOCOBALAMIN 500 MCG TABLET PO SCH (08:44)
[2020-01-02] MEDS: METFORMIN 500 MG TABLET PO SCH ×2 (08:44→17:00)
[2020-01-02] MEDS: TRAMADOL HCL 50 MG TABLET PO SCH ×2 (08:44→17:00)
--- NOTE | 2020-01-02 08:50 | NUR ---
RN NOTE: ELEVATED WBC WBC ELEVATED AT 15.3. CHEST X-RAY AND URINALYSIS WITH CULTURE ORDERED.
[2020-01-02] MEDS: SODIUM CHLORIDE 5% SOLN OPHTH 15 ML BOTTLE EACHEYE SCH ×3 (09:01→17:00)
[2020-01-02] MEDS: TIMOLOL 0.5% SOLN OPHTH 5 ML BOTTLE EACHEYE SCH ×2 (09:01→17:00)
[2020-01-02] MEDS: BRIMONIDINE TARTRATE OPHT SOLN 5 ML BOTTLE EACHEYE SCH ×2 (09:01→17:00)
[2020-01-02] MEDS: Z GUARD REMEDY 2 OZ OINT TP SCH (09:09)
[2020-01-02] MEDS: GABAPENTIN 400 MG CAPSULE PO SCH (09:09)
[2020-01-02] MEDS: RESTASIS EYE EACHEYE SCH ×2 (09:58→17:00)
[2020-01-02] MEDS: LORAZEPAM 0.5 MG TABLET PO PRN (09:59)
--- NOTE | 2020-01-02 09:59 | NUR ---
RN NOTE: ANXIETY PT EXHIBITING INCREASED AGITATION AND ANXIETY. PT GRASPING AT THINGS IN THE AIR THAT ARE NOT PRESENT. PT IS UNABLE TO BE REDIRECTED. MEDICATED WITH ATIVAN 0.5 MG PO PRN.
[2020-01-02] MEDS: INSULIN REGULAR, HUMAN 100 UNIT/ML 3 ML VIAL SQ PRN (11:58)
--- NOTE | 2020-01-02 12:30 | NUR ---
RN NOTE: URINE COLLECTED WITH STRAIGHT CATH USING ASEPTIC TECHNIQUE
[2020-01-02 12:47] LABS: APPEARANCE,URINE CLEAR (CLEAR); BILIRUBIN,URINE SMALL (NEGATIVE); BLOOD, URINE NEGATIVE Ery/uL (NEGATIVE); COLOR,URINE YELLOW (YELLOW); KETONES,URINE 15 (NEGATIVE); LEUKOCYTE ESTERASE ,URINE NEGATIVE (NEGATIVE); NITRITE, URINE NEGATIVE (NEGATIVE); PH,URINE 6.5 (5.0-8.0); PROTEIN,URINE TRACE mg/dl (NEGATIVE); UGLUCOSE NEGATIVE (NEGATIVE)
--- NOTE | 2020-01-02 13:16 | NUR ---
RN NOTE: RX HELD D/T SEDATION PER MD ORDER
[2020-01-02 13:24] LABS: BACTERIA,URINE Rare /HPF (None Seen); RBC,URINE NONE SEEN /HPF (0-2); SQUAMOUS EPITHELIAL CELL,UR Rare /HPF (None Seen); WBC,URINE 0-2 /HPF (0-3)
--- NOTE | 2020-01-02 14:58 | NUR ---
RN NOTE: RAPID RESPONSE PT OXYGEN DESATURATION AFTER TRANSFER FROM BED TO CHAIR. OXYGEN SATURATION DECREASED TO 80 % ON ROOM AIR. BP 109/55, 121 HR, 22 RESPIRATIONS, 99.1 AXILLARY TEMP. ACCUCHECK 64. UNABLE TO GIVE JUICE DUE TO ASPIRATION. PT PLACED ON 4 L VIA MASK AND O2 SATURATION INCREASED TO 92%. REPEAT BP 62/33. PT LOWERED IN CHAIR. RAPID RESPONSE CALLED. O2 DECREASED TO 90 % AND PT PLACED ON 5 LITERS. PT STIMULATED TO COUGH AND RAPID RESPONSE TEAM PRESENT. PT PLACED ON NASAL CANNULA AT 6 LITERS. IV STARTED AND ORDER FOR REPEAT CHEST XRAY AND TRANSFER TO MEDICAL/SURGICAL FLOOR. PT INCREASED BP TO 15/55 AND O2 AT 6 LITERS 93%
[2020-01-02 15:05] VITALS: BP 62/33
[2020-01-02 16:00] VITALS: BP 130/65
--- NOTE | 2020-01-02 18:14 | NUR ---
TENNIS PROFESSIONAL NOTE: PT TRANSFERRED TO TELEMETRY FLOOR VIA CHAIR WITH 02 VIA NASAL CANNULA @ 4L 0S SAT 95%. BP 90/60, HR 120, RESP 20. PT LEFT THE UNIT AT 1814.
[2020-01-02] MEDS ORDERED: LATA2.5D7 EACHEYE (18:32)
[2020-01-02] MEDS ORDERED: BLOO-668 IN (18:32)
[2020-01-02] MEDS ORDERED: TEMA7.5C12 PO (18:32)
[2020-01-02] MEDS ORDERED: ACET-868 PO (18:32)
[2020-01-02] MEDS ORDERED: NUT.237L45 PO (18:32)
[2020-01-02] MEDS ORDERED: DIVA125C5 PO (18:32)
[2020-01-02] MEDS ORDERED: MAG30ORA PO (18:32)
[2020-01-02] MEDS ORDERED: MAGN400O6 PO (18:32)
[2020-01-02] MEDS ORDERED: ALLA266C2 TP (18:32)
[2020-01-02] MEDS ORDERED: DEXT50DI8 IV (18:32)
[2020-01-02] MEDS ORDERED: INSU100V3 SQ (18:32)
[2020-01-02] MEDS ORDERED: LORA-259 PO (18:32)
== END 2020-01-02 18:15 | disposition short-term general hospital (02) | DRG 885 ==
LOC: GPS 23:55
PROVIDERS: ADMIT Psychiatry & Neurology Psychiatry; ATTEND Nurse Practitioner Acute Care
DX: F29 Unspecified psychosis not due to a substance or known physiological condition (principal); N17.0 Acute kidney failure with tubular necrosis; G93.41 Metabolic encephalopathy; F03.91 Unspecified dementia, unspecified severity, with behavioral disturbance; N13.8 Other obstructive and reflux uropathy; D68.59 Other primary thrombophilia; F39 Unspecified mood [affective] disorder; F41.9 Anxiety disorder, unspecified; Z73.6 Limitation of activities due to disability; E03.9 Hypothyroidism, unspecified; E11.40 Type 2 diabetes mellitus with diabetic neuropathy, unspecified; N40.1 Benign prostatic hyperplasia with lower urinary tract symptoms; Z66 Do not resuscitate; Z98.890 Other specified postprocedural states; Z95.2 Presence of prosthetic heart valve; Z79.899 Other long term (current) drug therapy; Z90.79 Acquired absence of other genital organ(s); D72.829 Elevated white blood cell count, unspecified; R09.02 Hypoxemia
CPT/HCPCS: 31720; 36415; 71045-TC; 80048-TC; 80053-TC; 80061-TC; 81000-TC; 82962-TC; 83735-TC; 83880; 84075-TC; 84100-TC; 84153-TC; 84443-TC; 84484-TC; 85025-TC; 87081-TC; 87086-TC; 97112-TC; 97116-TC; 97530-TC; J1815

== ENCOUNTER 2020-01-02 17:50 | Inpatient (IN) | payer MEDICARE, OTHER ==
[~2020-01-02] VITALS: Ht 170.2 cm; Wt 65.3 kg
[~2020-01-02 17:50] MED LIST: AMLO5TAB4 PO; BIMA2.5D5 EACHEYE; BRIM5DRO2 EACHEYE; BUPR75TA21 PO; CYAN-51 PO; CYCL30DR EACHEYE; DONE5TAB7 PO; GABA-532 PO; GABA-536 PO; GLIP5TAB3 PO; ICOS1CAP PO; LEVO137T2 PO; METF-442 PO; METO25TA6 PO; NETA2.5D EACHEYE; OLAN5TAB3 PO; OMEP20TA20 PO; SIMV-46 PO; SODI15DR7 EACHEYE; TRAM50TA PO; TRAZ-182 PO
[2020-01-02] MEDS ORDERED: INSU100V3 SQ (18:32)
[2020-01-02] MEDS ORDERED: MAG30ORA PO (18:32)
[2020-01-02] MEDS ORDERED: MAGN400O6 PO (18:32)
[2020-01-02] MEDS ORDERED: BLOO-668 IN (18:32)
[2020-01-02] MEDS ORDERED: NUT.237L45 PO (18:32)
[2020-01-02] MEDS ORDERED: DEXT50DI8 IV (18:32)
[2020-01-02] MEDS ORDERED: ACET-868 PO (18:32)
[2020-01-02] MEDS ORDERED: TEMA7.5C12 PO (18:32)
[2020-01-02] MEDS ORDERED: LATA2.5D7 EACHEYE (18:32)
[2020-01-02] MEDS ORDERED: LORA-259 PO (18:32)
[2020-01-02] MEDS ORDERED: DIVA125C5 PO (18:32)
[2020-01-02] MEDS ORDERED: ALLA266C2 TP (18:32)
[2020-01-02 18:43] VITALS: BP 121/74
--- NOTE | 2020-01-02 18:44 | NUR ---
EMY RN NOTE PIERRE-PSYCH PT RECEIVED IN UNIT ALERT AND AWAKE. VS TAKEN, TELEMONITOR SET UP TO PT. PT SAFETY PRECAUTIONS IN PLACE, BED LOCKED AND IN LOWEST POSITION, SIDE RAILS UP X2. PT IS ON 14 DAY HOLD. WILL CONTINUE TO MONITOR
[2020-01-02] MEDS ORDERED: Z GUARD REMEDY 2 OZ OINT TP PRN (19:00)
[2020-01-02] MEDS ORDERED: MAGNESIUM HYDROXIDE 30 ML UDC PO PRN (19:00)
[2020-01-02] MEDS ORDERED: ACETAMINOPHEN 325 MG TABLET PO PRN (19:00)
[2020-01-02] MEDS ORDERED: MAG HYDROX/AL HYDROX/SIMETH 30 ML UDC PO PRN (19:00)
[2020-01-02] MEDS ORDERED: ONDANSETRON HCL/PF 4 MG/2 ML VIAL IVP PRN (19:00)
--- NOTE | 2020-01-02 19:30 | NUR ---
RECOVERY SPECIALIST NOTE SPOKE WITH SON MARY CARMEN REEGARDING PATIENT'S CODE STATUS . PER SON, ADDI, HE WANTS HIS FATHER DNI/DNR. ALLEN VICKERS MADE AWARE.
[2020-01-02 19:37] LABS: CALCIUM, SERUM 8.4 mg/dL (8.5-10.1); CARBON DIOXIDE 23 mmol/L (21-32); CHLORIDE 105 mmol/L (98-107); CREATININE 1.1 mg/dL (0.6-1.3); GLUCOSE 105 mg/dL (74-106); POTASSIUM 4.8 mmol/L (3.5-5.1); SODIUM SERUM 141 mmol/L (136-145); UREA NITROGEN, BLOOD 37 mg/dL (7-18)
[2020-01-02 19:41] LABS: PHOSPHORUS 2.7 mg/dL (2.5-4.9)
[2020-01-02 20:00] VITALS: BP 105/50
--- NOTE | 2020-01-02 20:00 | NUR ---
MEDICAL APPOINTMENT SCHEDULER NOTE RECEIVED PT AWAKE A/O X1. BREATHING EVEN AND UNLABORED WITH NO SOB ON 5 LITER OF 02 NOTED. RIGHT AC #20 PATENT AND INTACT. DENIES ANY PAIN. ALL NEEDS RENDERED .SRX2 UP . SITTER BY BED SIDE. WILL CONTINUE TO MONITOR
[2020-01-02 20:22] LABS: BASOPHILS # (AUTO) 0.1 /CMM (0.0-0.2); BASOPHILS % (AUTO) 0.4 % (0.0-2.0); HEMATOCRIT 35 % (39-51); HEMOGLOBIN 11.4 g/dL (13.5-17.5); LYMPHOCYTES # (AUTO) 0.3 /CMM (0.8-4.8); LYMPHOCYTES % (AUTO) 1.7 % (20.0-44.0); MEAN CORPUSCULAR HGB CONC 33 g/dl (31.0-36.0); MEAN CORPUSCULAR VOLUME 95 fL (80-96); MONOCYTES # (AUTO) 0.8 /CMM (0.1-1.30); MONOCYTES % (AUTO) 4.4 % (2.0-12.0); NEUTROPHILS # (AUTO) 17.6 /CMM (1.8-8.9); NEUTROPHILS % (AUTO) 93.5 % (43.0-81.0); PLATELET COUNT (AUTO) 249 /CMM (150-450); RED BLOOD CELL COUNT(AUTO) 3.69 MIL/uL (4.5-6.0); WHITE BLOOD COUNT (AUTO) 18.9 K/uL (4.3-11.0)
--- NOTE | 2020-01-02 21:00 | NUR ---
LADLE LINER HELPER NOTE INFORMED ALLEN ABOUT BMP, MG AND PHOS RESULT WITH NNO NOTED
[2020-01-02 21:01] LABS: BAND % (MANUAL) 8 % (0.0-5.0); LYMPHOCYTES % (MANUAL) 4 % (16-48); MONOCYTES % (MANUAL) 2 % (0-11.0); NEUTROPHILS % (MANUAL) 85 (42-76); REACTIVE LYMPHOCYTES 1 % (0-0)
[2020-01-02] MEDS: BLOOD SUGAR DIAGNOSTIC 1 EACH STRIP IN SCH (21:10)
[2020-01-02] MEDS: IV D5/0.45 NACL 1,000 ML IV PRN (23:24)
[2020-01-03] VITALS: BP 106/70
[2020-01-03] MEDS: ZOLPIDEM TARTRATE 5 MG TABLET PO PRN ×2 (00:33→21:11)
[2020-01-03] MEDS: BLOOD SUGAR DIAGNOSTIC 1 EACH STRIP IN SCH ×6 (01:34→21:24)
--- NOTE | 2020-01-03 01:38 | NUR ---
LEAD BUSINESS SYSTEMS ANALYST NOTE INFORMED ALLEN METAL HANDLER VTE SCORE IS 4 AND BLOOD SUGAR IS 210 WITHOUT SLIDING SCALE. PT ORDERED LOVENOX 30MG Q24 AND NNO FOR BLOOD SUGAR.
[2020-01-03] MEDS ORDERED: ENOXAPARIN SODIUM 30 MG/0.3 ML DISP.SYRIN SQ SCH (02:00)
[2020-01-03 04:00] VITALS: BP 119/47
[2020-01-03] MEDS ORDERED: ALBUTEROL FS 2.5 MG/0.5 ML VIAL.NEB NEB PRN (05:00)
--- NOTE | 2020-01-03 05:53 | NUR ---
rt called to pt bedside for breathing tx. pt found supine in bed with course breath sounds. pt encouraged to cough and attempted to Yankauer suction. pt very agitated and unable to preform nasotracheal suction. Addendum: 01/03/20 at 0600 by DAVIDSON TEMPLE RT Amended: Links added.
[2020-01-03 06:43] LABS: BASOPHILS % (AUTO) 0.1 % (0.0-2.0); HEMATOCRIT 33 % (39-51); HEMOGLOBIN 10.6 g/dL (13.5-17.5); LYMPHOCYTES # (AUTO) 0.6 /CMM (0.8-4.8); LYMPHOCYTES % (AUTO) 3.6 % (20.0-44.0); MEAN CORPUSCULAR HGB CONC 33 g/dl (31.0-36.0); MEAN CORPUSCULAR VOLUME 96 fL (80-96); MONOCYTES # (AUTO) 0.8 /CMM (0.1-1.30); MONOCYTES % (AUTO) 5.1 % (2.0-12.0); NEUTROPHILS # (AUTO) 14.6 /CMM (1.8-8.9); NEUTROPHILS % (AUTO) 91.2 % (43.0-81.0); PLATELET COUNT (AUTO) 250 /CMM (150-450)
--- NOTE | 2020-01-03 06:47 | NUR ---
agent telegrapher note pt in bed, awake and restless. Breathing even and unlabored on 5L of 02 via nc with no sob or acute distress noted. no s/s of pain or discomfort. Right ac #20 patent and intact. IV fluids infusing well. Kept clean and dry. Srx2 up. Bed in lowest position. Sitter by bedside at all times. All needs rendered. Will endorse to AM nurse for continuity of care.
[2020-01-03 06:53] LABS: THYROID STIMULATING HORMONE 0.88 uIU/mL (0.358-3.74)
[2020-01-03 06:57] LABS: CREATININE 1.2 mg/dL (0.6-1.3); MAGNESIUM 2.1 mg/dL (1.8-2.4); PHOSPHORUS 3.5 mg/dL (2.5-4.9); POTASSIUM 4.5 mmol/L (3.5-5.1)
--- NOTE | 2020-01-03 07:30 | NUR ---
RN OPENING NOTE Patient in bed, A/Ox1, mumbling words, on NC @6.0 L with humidifier,tolerating well, SPO2 is 989% at this time, no s/sx of discomfort, pain or resp distress noted, IV on R FA is patent an intact, running NS @ 100 cc/hr; sitter at bed site, patient is resting comfortably, bed is lock in lowest position, HOB elevated, call light in reach, will cont to monitor.
[2020-01-03 08:00] VITALS: BP 119/88
--- NOTE | 2020-01-03 09:00 | NUR ---
WOUND CARE CONSULT: PT SEEN FOR SKIN ASSESSMENT AND NOTED TO HAVE FRAGILE SCAR TO MIDBACK AND DRY ABRASIONS TO LOWER EXTREMITIES, DISCOLORATION TO ARMS, PRESENT ON ADMISSION. RECOMMENDATIONS MADE FOR SKIN PROTECTION. DISCUSSED WITH NURSING STAFF. PT NOTED TO BE MOVING IN BED ALMOST CONSTANTLY. SITTER AT BEDSIDE. PT IS INCONTINENT. WILL SEE PRN. CARDOZO IN AGREEMENT WITH PLAN OF CARE.
--- NOTE | 2020-01-03 09:05 | NUR ---
refusing vaccination, kicking nurses and CNAs
--- NOTE | 2020-01-03 09:40 | NUR ---
Spoke with DR Blank order the phone, per doctor discontinue 14 days hold , also ordered neuro consult, will contact Dr Mcfarland
--- NOTE | 2020-01-03 09:55 | NUR ---
Patient is extremely agitated, kicking nurses with arms and legs,removed his IV line , will notify
[2020-01-03] MEDS ORDERED: LORAZEPAM INJ 2 MG/ML VIAL IV ONE (10:45)
[2020-01-03] MEDS ORDERED: IV NS 0.9% 250 ML IV ONE (11:06)
[2020-01-03] MEDS ORDERED: IOHEXOL-350 100 ML VIAL IV ONE (11:06)
[2020-01-03] MEDS ORDERED: CT SWABBABLE VALVE TRANS SET 1 EA INFUS.SET MC ONE (11:06)
[2020-01-03 12:00] VITALS: BP 123/86
--- NOTE | 2020-01-03 12:43 | NUR ---
Discharge Plan: Pt was discharged from the GPS Unit at [facility] on 01/02/20 [facility] Pt has been accepted to [facility] and will be discharged there once he is stable.
[2020-01-03 16:00] VITALS: BP 128/76
[2020-01-03] MEDS: IV D5/0.45 NACL 1,000 ML IV PRN (18:10)
--- NOTE | 2020-01-03 18:33 | NUR ---
patent is very agitated, kicked nurse and MANAGED CARE PROVIDER x4, screaming and very uncooperative, will give PRN medicine
[2020-01-03] MEDS: LORAZEPAM INJ 2 MG/ML VIAL IV PRN (18:40)
--- NOTE | 2020-01-03 18:43 | NUR ---
RN CLOSING NOTES PATIENT REMAINS IN BED, SCREAMING, KICKING, HITTING NURSES AND CLAY MODELER, AGITATED, ONLY FARSI SPEAKING, SITTER AT BED SITE, SOFT RESTRAINS IN PLACE, CHECKING PATIENT ACCORDING TO PROTOCOL, IV LINE ON L FA, PATENT INTACT, INFUSING D51/2 NS AT 100CC/HR, TOLERATING WELL, ON NC AT 5.0 L OF O2, NO SOB OR DISTRESS NOTED, BED IS LOCKED, LOWEST POSITION, SITTER AT BED SIT, CALL LIGHT IN REACH, WILL ENDORSE TO PM SHIFT RN
[2020-01-03] MEDS ORDERED: Z GUARD REMEDY 2 OZ OINT TP PRN (19:00)
[2020-01-03] MEDS ORDERED: DEXTROSE 50%-WATER 50 ML DISP.SYRIN IV PRN ×2 (19:00)
[2020-01-03] MEDS ORDERED: AMLODIPINE BESYLATE 5 MG TABLET PO PRN (19:00)
--- NOTE | 2020-01-03 19:45 | NUR ---
1944 RECEIVED PATIENT IN BED, AGITATED AND WITH EPISODES OF SCREAMING. REDIRECTED WITH NO HELP. NO SIGNS OF DISTRESS NOTED. ON O2 AT 2L PER NC. BILATERAL SOFT WRIST RESTRAINTS APPLIED PATIENTS IS TRYING TO GET OUT OF BED AND TRYING TO RIP OUT IV SITE. ALSO TRIES TO KICK STAFF, AND HITS HIS LEGS AGAINST THE SIDE RAILS. LFA IV INTACT, PATENT AND SECURED WITH KERLIX GAUZE. PATIENT NOTED WITH URINARY INCONTINENCE. COMPLETE BED BATH PROVIDED. ALL LINENS CHANGED. PLACED PADS ON SIDE RAILS FOR SAFETY. PLACED BED AT THE LOWEST POSITION WITH ALARM ON. CALL LIGHT WITHIN REACH. PATIENT BEING MONITORED CLOSELY.
[2020-01-03 20:00] VITALS: BP 125/63
--- NOTE | 2020-01-03 20:00 | NUR ---
MS RN OPENING NOTE RECEIVED PT IN BED. AWAKE A/O X1. BREATHING EVEN AND UNLABORED IN 5LPM OF 02. NO SOB OR ACUTE DISTRESS NOTED. NO S/S OF PAIN OR DISCOMFORT. LFA IV LINE PATENT AND INTACT. DRESSING CLEAN AND DRY. BILATERAL SOFT WRIST RESTRAINT NOTED IN PLACE. ALL NEEDS RENDERED. KEPT CLEAN AND DRY. BED IN LOWEST POSITION. SRX2 UP. REPOSITIONED. WILL CONTINUE TO MONITOR.
[2020-01-03] MEDS: GABAPENTIN 300 MG CAPSULE PO SCH (21:10)
[2020-01-03] MEDS: LATANOPROST EYE DROP 0.005% 2.5 ML BOTTLE EACHEYE SCH (21:10)
[2020-01-03] MEDS: SIMVASTATIN 20 MG TABLET PO SCH (21:11)
[2020-01-03] MEDS: ENOXAPARIN SODIUM 30 MG/0.3 ML DISP.SYRIN SQ SCH (21:13)
[2020-01-03] MEDS: INSULIN REGULAR, HUMAN 100 UNIT/ML 3 ML VIAL SQ PRN (21:34)
[2020-01-03] MEDS ORDERED: BLOOD SUGAR DIAGNOSTIC 1 EACH STRIP IN SCH (22:00)
[2020-01-04 04:00] VITALS: BP 157/73
--- NOTE | 2020-01-04 04:19 | NUR ---
MS RN NOTE UNABLE TO COVER BILATERAL LEG WOUNDS DUE PT KICKING. WILL WAIT TILL PT CALMS DOWN AND WILL TRY AGAIN.
[2020-01-04] MEDS: LORAZEPAM INJ 2 MG/ML VIAL IV PRN (04:47)
--- NOTE | 2020-01-04 04:47 | NUR ---
MS RN NOTE ATIVAN 1MG PRN. GIVEN FOR AGITATION. PT KICKING AND SCREAMING. RELAXATION INEFFECTIVE.
--- NOTE | 2020-01-04 05:00 | NUR ---
MS RN NOTE REASSESSED EFFECTIVENESS OF PRN ATIVAN 1MG IV FOR AGITATION. PT ASLEEP AND SNORING.
[2020-01-04 05:53] LABS: BASOPHILS # (AUTO) 0.1 /CMM (0.0-0.2); BASOPHILS % (AUTO) 0.7 % (0.0-2.0); EOSINOPHILS % (AUTO) 0.8 % (0.0-6.0); HEMATOCRIT 34 % (39-51); HEMOGLOBIN 10.9 g/dL (13.5-17.5); LYMPHOCYTES # (AUTO) 0.7 /CMM (0.8-4.8); LYMPHOCYTES % (AUTO) 8.8 % (20.0-44.0); MEAN CORPUSCULAR HGB CONC 32 g/dl (31.0-36.0); MEAN CORPUSCULAR VOLUME 97 fL (80-96); MONOCYTES # (AUTO) 0.6 /CMM (0.1-1.30); MONOCYTES % (AUTO) 7.1 % (2.0-12.0); NEUTROPHILS # (AUTO) 6.9 /CMM (1.8-8.9); NEUTROPHILS % (AUTO) 82.6 % (43.0-81.0); PLATELET COUNT (AUTO) 260 /CMM (150-450); RED BLOOD CELL COUNT(AUTO) 3.49 MIL/uL (4.5-6.0); WHITE BLOOD COUNT (AUTO) 8.3 K/uL (4.3-11.0)
[2020-01-04] MEDS: IV D5/0.45 NACL 1,000 ML IV PRN ×2 (06:05→18:05)
[2020-01-04 06:24] LABS: CALCIUM, SERUM 8.1 mg/dL (8.5-10.1); CREATININE 0.8 mg/dL (0.6-1.3); MAGNESIUM 2.2 mg/dL (1.8-2.4); PHOSPHORUS 2.3 mg/dL (2.5-4.9); POTASSIUM 3.6 mmol/L (3.5-5.1)
--- NOTE | 2020-01-04 06:40 | NUR ---
ADVANCED QUALITY ENGINEER NOTE PT IN BED , ASLEEP. BREATHING EVEN AND UNLABORED IN 5LPM OF 02 VIA NC. NO SOB OR ACUTE DISTRESS NOTED. NO S/S OF PAIN OR DISCOMFORT. LFA IV PATENT AND INTACT. DRESSING CLEAN AND DRY. FLUIDS INFUSING WELL. ALL NEEDS RENDERED. KEPT CLEAN AND DRY. BED IN LOWEST POSITION. SRX2 UP. BILATERAL SOFT WRIST RESTRAINT IN PLACE. REPOSITIONED. WILL ENDORSE TO AM NURSE FOR CONTINUITY OF CARE
[2020-01-04] MEDS ORDERED: LEVOTHYROXINE SODIUM 137 MCG TABLET PO SCH (07:00)
--- NOTE | 2020-01-04 07:09 | NUR ---
telephone information supervisor note Spoke with Dr. Blank regarding pt's condition. Informed Md pt was very agitated and restless during the shift. Per MD, he is ready to be discharged to a facility the son found and to inform cyanide case hardener. Per MD, keep son informed regarding DC. Charge nurse aware.
--- NOTE | 2020-01-04 08:05 | NUR ---
RN OPENING NOTE Patient is in bed, A/O x1, agitated, confusion, saturating 100% on 5L NC. IV line in the LFA#18g is clean and intact flushing well running D51/2 NS @ 100mls/hour. Bilateral soft wrist restraints noted, circulation checked. Bed is in lowest position, side rails x3 in upright position, call light is within reach, fall safety and aspiration precautions enforced. Will continue with plan of care. Addendum: 01/04/20 at 1506 by SUNNY MOTT RN isolation precautions due to pending covid PCR
[2020-01-04] MEDS: GABAPENTIN 400 MG CAPSULE PO SCH (08:26)
[2020-01-04] MEDS: BRIMONIDINE TARTRATE OPHT SOLN 5 ML BOTTLE EACHEYE SCH ×2 (08:27→16:53)
[2020-01-04] MEDS: TIMOLOL 0.5% SOLN OPHTH 5 ML BOTTLE EACHEYE SCH ×2 (08:27→16:52)
[2020-01-04] MEDS: TRAMADOL HCL 50 MG TABLET PO SCH ×2 (08:27→16:53)
[2020-01-04] MEDS: BLOOD SUGAR DIAGNOSTIC 1 EACH STRIP IN SCH ×4 (08:28→22:11)
[2020-01-04] MEDS: CYANOCOBALAMIN 500 MCG TABLET PO SCH (08:28)
[2020-01-04] MEDS: INSULIN REGULAR, HUMAN 100 UNIT/ML 3 ML VIAL SQ PRN ×4 (08:35→22:12)
[2020-01-04] MEDS: SODIUM CHLORIDE 5% OPHTH OINT 3.5 GM TUBE EACHEYE SCH ×4 (09:00→21:56)
[2020-01-04] MEDS ORDERED: SODIUM CHLORIDE 5% SOLN OPHTH 15 ML BOTTLE EACHEYE SCH (09:00)
--- NOTE | 2020-01-04 09:12 | NUR ---
patient pending covid pcr ,on isolation per protocol ,nursing sup made aware.
[2020-01-04] MEDS: GLUCERNA SHAKE 237 ML CAN PO SCH ×3 (09:21→16:53)
[2020-01-04 12:00] VITALS: BP 145/68
[2020-01-04] MEDS ORDERED: NEUTRA PHOS 1 POWD.PACKET PO ONE (13:30)
--- NOTE | 2020-01-04 15:02 | NUR ---
RN NOTE Ok per family for patient to have flu and pneumococcal vaccine.
--- NOTE | 2020-01-04 15:19 | NUR ---
clarified with jesus israel if patient need to be move to covid unit since pt from gps and had negative rapid test but dr. eduardo ordered pcr yesterday,per md need to to order rapid test again and if negative keep in [place] for now pending pcr,nursing sup aware,continue iso precaution.primary rn aware.
[2020-01-04] MEDS: CYCLOSPORINE EACHEYE SCH (18:08)
--- NOTE | 2020-01-04 18:49 | NUR ---
RN CLOSING NOTE Patient is in bed, A/O x1, agitated, confusion, saturating 100% on 5L NC. IV line in the LFA#18g is clean and intact flushing well running D51/2 NS @ 100mls/hour. Bilateral soft wrist restraints noted, circulation checked, patient turned and reposition, po and fluid intake provided. Bed is in lowest position, side rails x3 in upright position, call light is within reach, fall safety and aspiration precautions enforced. Will continue with plan of care. RAPID TEST NEGATIVE. PCR PENDING--ISOLATION PRECAUTIONS ENFORCED.
--- NOTE | 2020-01-04 19:10 | NUR ---
MS RN NOTES RECEIVED PT IN BED AND AWAKE. PT A/OX 1 OPENS EYES. RESPIRATIONS EVEN AND UNLABORED WITH NO S/S OF ACUTE DISTRESS OR SOB NOTED. NO S/S OF PAIN AT THIS TIME. BED IN LOWEST LOCKED POSITION WITH SIDE RAILS UP X2. CALL LIGHT WITHIN REACH. WILL CONTINUE TO MONITOR.
--- NOTE | 2020-01-04 19:11 | NUR ---
MS RN NOTES PT NOTED WITH WOUNDS ON HANDS, SACRAL AREA, AND BLE. WILL CONTINUE TO MONITOR.
[2020-01-04 20:00] VITALS: BP 128/53
[2020-01-04] MEDS: ENOXAPARIN SODIUM 30 MG/0.3 ML DISP.SYRIN SQ SCH (22:00)
[2020-01-04] MEDS: LATANOPROST EYE DROP 0.005% 2.5 ML BOTTLE EACHEYE SCH (22:00)
[2020-01-04] MEDS: GABAPENTIN 300 MG CAPSULE PO SCH (22:12)
[2020-01-04] MEDS: SIMVASTATIN 20 MG TABLET PO SCH (22:12)
[2020-01-05 04:00] VITALS: BP 134/75
[2020-01-05] MEDS: IV D5/0.45 NACL 1,000 ML IV PRN ×2 (04:23→15:02)
[2020-01-05 06:26] LABS: BASOPHILS % (AUTO) 0.4 % (0.0-2.0); EOSINOPHILS % (AUTO) 0.4 % (0.0-6.0); HEMATOCRIT 31 % (39-51); HEMOGLOBIN 10.1 g/dL (13.5-17.5); LYMPHOCYTES # (AUTO) 0.8 /CMM (0.8-4.8); LYMPHOCYTES % (AUTO) 7.4 % (20.0-44.0); MEAN CORPUSCULAR HGB CONC 33 g/dl (31.0-36.0); MEAN CORPUSCULAR VOLUME 95 fL (80-96); MONOCYTES # (AUTO) 0.5 /CMM (0.1-1.30); MONOCYTES % (AUTO) 4.4 % (2.0-12.0); NEUTROPHILS # (AUTO) 9.6 /CMM (1.8-8.9); NEUTROPHILS % (AUTO) 87.4 % (43.0-81.0); PLATELET COUNT (AUTO) 286 /CMM (150-450); RED BLOOD CELL COUNT(AUTO) 3.26 MIL/uL (4.5-6.0)
[2020-01-05 06:49] LABS: CALCIUM, SERUM 8.1 mg/dL (8.5-10.1); CREATININE 0.9 mg/dL (0.6-1.3); MAGNESIUM 2.1 mg/dL (1.8-2.4); PHOSPHORUS 3.3 mg/dL (2.5-4.9); POTASSIUM 4.3 mmol/L (3.5-5.1)
--- NOTE | 2020-01-05 06:50 | NUR ---
MS RN NOTES NO ACUTE CHANGES THROUGHOUT SHIFT. WILL ENDORSE TO ONCOMING NURSE FOR TANI.
--- NOTE | 2020-01-05 07:15 | NUR ---
Patient is in bed, A/O x1, agitated, confusion, saturating 100% on 5L NC. IV line in the LFA#18g is clean and intact flushing well running D51/2 NS @ 100mls/hour. Bilateral soft wrist restraints noted, circulation checked, will turn and reposition Q2h, po and fluid intake will be provided. Bed is in lowest position, side rails x3 in upright position, call light is within reach, fall safety and aspiration precautions enforced. Will continue with plan of care. RAPID TEST NEGATIVE. PCR PENDING--ISOLATION PRECAUTIONS ENFORCED.
[2020-01-05 08:00] VITALS: BP 134/75
[2020-01-05] MEDS: BLOOD SUGAR DIAGNOSTIC 1 EACH STRIP IN SCH ×4 (08:30→21:19)
[2020-01-05] MEDS: GABAPENTIN 400 MG CAPSULE PO SCH (08:37)
[2020-01-05] MEDS: CYANOCOBALAMIN 500 MCG TABLET PO SCH (08:37)
[2020-01-05] MEDS: CYCLOSPORINE EACHEYE SCH ×2 (08:37→17:51)
[2020-01-05] MEDS: GLUCERNA SHAKE 237 ML CAN PO SCH ×3 (08:38→17:51)
[2020-01-05] MEDS: TIMOLOL 0.5% SOLN OPHTH 5 ML BOTTLE EACHEYE SCH ×2 (08:38→17:51)
[2020-01-05] MEDS: SODIUM CHLORIDE 5% OPHTH OINT 3.5 GM TUBE EACHEYE SCH ×4 (08:39→21:17)
[2020-01-05] MEDS: BRIMONIDINE TARTRATE OPHT SOLN 5 ML BOTTLE EACHEYE SCH ×2 (08:39→17:43)
[2020-01-05] MEDS: INSULIN REGULAR, HUMAN 100 UNIT/ML 3 ML VIAL SQ PRN ×3 (08:49→22:06)
[2020-01-05] MEDS: LEVOTHYROXINE SODIUM 137 MCG TABLET PO SCH (08:56)
--- NOTE | 2020-01-05 10:13 | NUR ---
patient anxious ,will give prn meds.
[2020-01-05] MEDS: OLANZAPINE 5 MG/TAB.RAPDIS PO PRN ×3 (10:23→22:19)
[2020-01-05] MEDS: TRAMADOL HCL 50 MG TABLET PO SCH ×2 (10:23→17:43)
--- NOTE | 2020-01-05 11:03 | NUR ---
Patient is in bed, A/O x1, agitated, confusion, saturating 100% on 5L NC. IV line in the LFA#18g is clean and intact flushing well running D51/2 NS @ 100mls/hour. Bilateral soft wrist restraints noted, circulation checked, will turn and reposition Q2h, po and fluid intake will be provided. Bed is in lowest position, side rails x3 in upright position, call light is within reach, fall safety and aspiration precautions enforced. Will continue with plan of care. RAPID TEST NEGATIVE. PCR PENDING--ISOLATION PRECAUTIONS ENFORCED. Addendum: 01/05/20 at 1109 by BETH CELIS RN REFER TO OPENING NOTE AT [id number]
--- NOTE | 2020-01-05 11:10 | NUR ---
discontinue restraints patient bilateral hand c/o swelling,elevated both arms on pillows,bed alarm on ,iv site covered w/ dressing to prevent pullling ,siderails x3 up.bed lowered,will continue to monitor.
[2020-01-05 12:00] VITALS: BP 104/55
[2020-01-05] MEDS: HYDROCODONE/APAP 5/325MG TABLET PO PRN ×2 (12:08→17:06)
--- NOTE | 2020-01-05 12:36 | NUR ---
patient calm ,asleep no acute distress ,will continue to monitor.
--- NOTE | 2020-01-05 12:37 | NUR ---
patient pcr negative,isolation discontinued md aware.
--- NOTE | 2020-01-05 13:09 | NUR ---
md made aware of bilateral swelling of both hands ,off restraint.
[2020-01-05 18:00] VITALS: BP 104/55
--- NOTE | 2020-01-05 19:05 | NUR ---
Patient is in bed, A/O x1 asleep and arousable. Irritable when moved and repositioned. saturating 100% on 5L NC. IV line in the LFA#18g is clean and intact flushing well running D51/2 NS @ 100mls/hour. turned and repositioned Q2h, po and fluid intake provided. Bed is in lowest position, side rails x3 in upright position, call light is within reach, fall safety and aspiration precautions enforced. Will continue with plan of care and endorse to pm RN. COVID pcr negative. Spoke with family today to update. all hospital policy safety precautions in place.
--- NOTE | 2020-01-05 19:30 | NUR ---
RN NOTE RECEIVED PATIENT IN BED, AO X 1 WITH EPISODES OF AGITATION. PATIENT IN NO S/SX OF ACUTE DISTRESS AT THIS TIME. PATIENT'S BREATHING IS EVEN AND UNLABORED. PATIENT IS ON 5 L OF OXYGEN VIA NC, TOLERATING WELL, SATURATING AT 98%. NOTED IV SITE LFA G18, PATENT AND FLUSHING WELL WITH D5 1/2 NS INFUSING AT 40 ML/HR, NO S/S OF INFECTION OR INFILTRATION. SAFETY MEASURES HAVE IMPLEMENTED PER PROTOCOL. PATIENT BED ALARM IS ON. HEAD OF BED ELEVATED. BED IS LOCKED, IN LOWEST POSITION AND SIDE RAILS UP. CALL LIGHT WITHIN REACH OF THE PATIENT. WILL CONTINUE TO MONITOR AND REASSESS FOR ANY CHANGES.
[2020-01-05 20:00] VITALS: BP 117/57
--- NOTE | 2020-01-05 20:00 | NUR ---
RN NOTE NOTED TEMP 96 DEG F, KEPT PATIENT WARM, PROVIDED WARM BLANKET. TEMP RECHECKED AND RESULTED, 98.9 DEG F. WILL CONTINUE TO MONITOR.
[2020-01-05] MEDS: SIMVASTATIN 20 MG TABLET PO SCH (21:19)
[2020-01-05] MEDS: GABAPENTIN 300 MG CAPSULE PO SCH (21:19)
[2020-01-05] MEDS: LATANOPROST EYE DROP 0.005% 2.5 ML BOTTLE EACHEYE SCH (21:31)
[2020-01-05] MEDS: ENOXAPARIN SODIUM 30 MG/0.3 ML DISP.SYRIN SQ SCH (22:06)
[2020-01-06 04:00] VITALS: BP 105/54
[2020-01-06] MEDS: OLANZAPINE 5 MG/TAB.RAPDIS PO PRN ×3 (05:50→23:50)
[2020-01-06 06:29] LABS: BASOPHILS # (AUTO) 0.1 /CMM (0.0-0.2); BASOPHILS % (AUTO) 0.9 % (0.0-2.0); EOSINOPHILS % (AUTO) 0.4 % (0.0-6.0); HEMATOCRIT 34 % (39-51); HEMOGLOBIN 10.9 g/dL (13.5-17.5); LYMPHOCYTES # (AUTO) 1.8 /CMM (0.8-4.8); LYMPHOCYTES % (AUTO) 15.3 % (20.0-44.0); MEAN CORPUSCULAR HGB CONC 32 g/dl (31.0-36.0); MEAN CORPUSCULAR VOLUME 95 fL (80-96); MONOCYTES # (AUTO) 0.8 /CMM (0.1-1.30); MONOCYTES % (AUTO) 6.5 % (2.0-12.0); NEUTROPHILS # (AUTO) 8.9 /CMM (1.8-8.9); NEUTROPHILS % (AUTO) 76.9 % (43.0-81.0); PLATELET COUNT (AUTO) 298 /CMM (150-450); RED BLOOD CELL COUNT(AUTO) 3.59 MIL/uL (4.5-6.0); WHITE BLOOD COUNT (AUTO) 11.6 K/uL (4.3-11.0)
[2020-01-06 06:42] LABS: CALCIUM, SERUM 8.3 mg/dL (8.5-10.1); MAGNESIUM 2.1 mg/dL (1.8-2.4); PHOSPHORUS 3.4 mg/dL (2.5-4.9); POTASSIUM 4.4 mmol/L (3.5-5.1)
[2020-01-06] MEDS: BLOOD SUGAR DIAGNOSTIC 1 EACH STRIP IN SCH ×4 (07:12→22:14)
[2020-01-06] MEDS: LEVOTHYROXINE SODIUM 137 MCG TABLET PO SCH (07:12)
[2020-01-06] MEDS: INSULIN REGULAR, HUMAN 100 UNIT/ML 3 ML VIAL SQ PRN ×4 (07:42→22:15)
--- NOTE | 2020-01-06 07:55 | NUR ---
RN MS NOTE: PT RECEIVED IN BED, EYES OPEN, A/O X 1, CONFUSED. PT ON 5L RA O2 SATURATION 98%, NO SIGNS OF RESPIRATORY DISTRESS OR SOB. PT BEDREST WITH BILATERAL ANKLE WOUNDS, RIGHT ARM EXCORIATION, AND REDNESS IN THE MID-BACK. PT HAS LFA #18 RUNNING D5 1/2 NS@40 ML/HR. IV SITE COVERED IN GAUZE. NO SIGNS OF INFECTION OR INFILTRATION. BED IN LOCKED LOWEST POSITION, CALL LIGHT WITHIN REACH. ALL SAFETY MEASURES IN PLACE. WILL CONTINUE TO MONITOR CLOSELY.
[2020-01-06 08:00] VITALS: BP 115/47
[2020-01-06 08:43] LABS: BAND % (MANUAL) 1 % (0.0-5.0); EOSINOPHILS % (MANUAL) 1 % (0-4); LYMPHOCYTES % (MANUAL) 17 % (16-48); MONOCYTES % (MANUAL) 1 % (0-11.0); NEUTROPHILS % (MANUAL) 80 (42-76)
[2020-01-06] MEDS: GABAPENTIN 400 MG CAPSULE PO SCH (09:19)
[2020-01-06] MEDS: BRIMONIDINE TARTRATE OPHT SOLN 5 ML BOTTLE EACHEYE SCH ×2 (09:19→16:15)
[2020-01-06] MEDS: CYANOCOBALAMIN 500 MCG TABLET PO SCH (09:19)
[2020-01-06] MEDS: TIMOLOL 0.5% SOLN OPHTH 5 ML BOTTLE EACHEYE SCH ×2 (09:20→16:15)
[2020-01-06] MEDS: SODIUM CHLORIDE 5% OPHTH OINT 3.5 GM TUBE EACHEYE SCH ×4 (09:27→21:08)
[2020-01-06] MEDS: TRAMADOL HCL 50 MG TABLET PO SCH ×2 (09:38→16:15)
[2020-01-06] MEDS: GLUCERNA SHAKE 237 ML CAN PO SCH ×3 (09:39→17:00)
--- NOTE | 2020-01-06 10:16 | NUR ---
RN MS NOTE: PER RN TO TITRATE OFF SUPPLEMENTAL O2. PT THIS AM ON 5L O2 SATURATION 99%. O2 NOW TITRATED DOWN TO 3L, O2 SATURATION CURRENTLY 99%, NO RESPIRATORY DISTRESS OR SOB. HR 69.
[2020-01-06] MEDS: CYCLOSPORINE EACHEYE SCH ×2 (11:50→16:17)
[2020-01-06 12:00] VITALS: BP 125/54
[2020-01-06] MEDS: IV D5/0.45 NACL 1,000 ML IV PRN (15:00)
--- NOTE | 2020-01-06 15:16 | NUR ---
RN MS NOTE: PT SON, MARY CARMEN, CONSENTS TO FLU SHOT VACCINE AND PNA VACCINE. RN TO PUT ORDERS IN
[2020-01-06] MEDS ORDERED: PNEUMOCOCCAL 23-VAL P-SAC VAC 0.5 ML VIAL SQ ONE (15:30)
[2020-01-06] MEDS ORDERED: INFLUENZA VACCINE 2020-21 0.5 ML DISP.SYRIN IM ONE (15:30)
--- NOTE | 2020-01-06 18:40 | NUR ---
RN MS NOTE: PT CONDITION UNCHANGED. PT IS OCCASIONALLY AGITATED, PRN ZYPREXA GIVEN PER MD ORDER. NO RESTRAINTS USED THIS SHIFT. PT A/OX1. PT ABLE TO DECREASE O2 PER MD ORDER FROM 5L TO NOW 1L NC. NO RESPIRATORY DISTRESS OR SOB. PT O2 SATURATION CURRENTLY 98%. PT IS BEDREST, SACRAL MEPILEX CHANGED. PT HAS LFA #18 RUNNING D5 1/2 NS @ 40 ML/HR. NO SIGNS OF INFECTION OR INFILTRATION. BED IN LOCKED LOWEST POSITION. CALL LIGHT WITHIN REACH. ALL SAFETY MEASURES IN PLACE. REPORT GIVEN TO ONCOMING RN FOR TANI.
[2020-01-06 20:00] VITALS: BP 139/70
[2020-01-06] MEDS: SIMVASTATIN 20 MG TABLET PO SCH (21:05)
[2020-01-06] MEDS: GABAPENTIN 300 MG CAPSULE PO SCH (21:05)
[2020-01-06] MEDS: ENOXAPARIN SODIUM 30 MG/0.3 ML DISP.SYRIN SQ SCH (21:06)
[2020-01-06] MEDS: LATANOPROST EYE DROP 0.005% 2.5 ML BOTTLE EACHEYE SCH (21:35)
[2020-01-07 04:00] VITALS: BP 115/67
[2020-01-07 06:00] LABS: BASOPHILS # (AUTO) 0.1 /CMM (0.0-0.2); BASOPHILS % (AUTO) 0.5 % (0.0-2.0); HEMATOCRIT 34 % (39-51); HEMOGLOBIN 11.3 g/dL (13.5-17.5); LYMPHOCYTES # (AUTO) 1.1 /CMM (0.8-4.8); LYMPHOCYTES % (AUTO) 10.8 % (20.0-44.0); MEAN CORPUSCULAR HGB CONC 33 g/dl (31.0-36.0); MEAN CORPUSCULAR VOLUME 94 fL (80-96); MONOCYTES # (AUTO) 0.7 /CMM (0.1-1.30); MONOCYTES % (AUTO) 6.5 % (2.0-12.0); NEUTROPHILS # (AUTO) 8.5 /CMM (1.8-8.9); NEUTROPHILS % (AUTO) 79.2 % (43.0-81.0); PLATELET COUNT (AUTO) 287 /CMM (150-450); RED BLOOD CELL COUNT(AUTO) 3.62 MIL/uL (4.5-6.0); WHITE BLOOD COUNT (AUTO) 10.7 K/uL (4.3-11.0)
[2020-01-07 06:15] LABS: CALCIUM, SERUM 8.2 mg/dL (8.5-10.1); CREATININE 0.9 mg/dL (0.6-1.3); MAGNESIUM 1.9 mg/dL (1.8-2.4); PHOSPHORUS 2.8 mg/dL (2.5-4.9); POTASSIUM 4.3 mmol/L (3.5-5.1)
--- NOTE | 2020-01-07 06:57 | NUR ---
RN NOTE PT STABLE THROUGH OUT THE SHIFT. ZYPREXA GIVEN X 1 FOR AGITATION. NO RESTRAINTS USED THIS SHIFT. ON O2 VIA NC AT 1 L/MIN. NO RESPIRATORY DISTRESS OR SOB. PT O2 SATURATION CURRENTLY 98-99%. PT HAS LFA #18 RUNNING D5 1/2 NS @ 40 ML/HR. NO SIGNS OF INFECTION OR INFILTRATION. BED LOCKED AND IN LOWEST POSITION. CALL LIGHT WITHIN REACH. ENDORSED TO AM RN FOR TANI
[2020-01-07] MEDS: BLOOD SUGAR DIAGNOSTIC 1 EACH STRIP IN SCH (07:43)
[2020-01-07] MEDS: INSULIN REGULAR, HUMAN 100 UNIT/ML 3 ML VIAL SQ PRN ×2 (07:48→12:48)
--- NOTE | 2020-01-07 07:58 | NUR ---
RN MS NOTE: PT RECEIVED IN BED, A/OX1 WITH CONFUSION. SUPERMARKET MANAGER IN ROOM FEEDING PT. PT IS 1L O2 SATURATION 96%. NO RESPIRATORY DISTRESS OR SOB. PT HAS LFA#18 RUNNING D5 1/2 NS AT 40 ML/HR. NO SIGNS OF INFECTION OR INFILTRATION. PT IS IN BED LOCKED LOWEST POSITION. CALL LIGHT WITHIN REACH. ALL SAFETY MEASURES IN PLACE. WILL CONTINUE TO MONITOR CLOSELY.
[2020-01-07] MEDS: LEVOTHYROXINE SODIUM 137 MCG TABLET PO SCH (09:35)
[2020-01-07] MEDS: GABAPENTIN 400 MG CAPSULE PO SCH (09:35)
[2020-01-07] MEDS: OLANZAPINE 5 MG/TAB.RAPDIS PO PRN (09:35)
[2020-01-07] MEDS: CYANOCOBALAMIN 500 MCG TABLET PO SCH (09:35)
[2020-01-07] MEDS: TIMOLOL 0.5% SOLN OPHTH 5 ML BOTTLE EACHEYE SCH (09:36)
[2020-01-07] MEDS: TRAMADOL HCL 50 MG TABLET PO SCH (09:36)
[2020-01-07] MEDS: CYCLOSPORINE EACHEYE SCH (09:37)
[2020-01-07] MEDS: BRIMONIDINE TARTRATE OPHT SOLN 5 ML BOTTLE EACHEYE SCH (09:37)
[2020-01-07] MEDS: SODIUM CHLORIDE 5% OPHTH OINT 3.5 GM TUBE EACHEYE SCH (09:37)
[2020-01-07 09:58] LABS: BAND % (MANUAL) 1 % (0.0-5.0); EOSINOPHILS % (MANUAL) 6 % (0-4); LYMPHOCYTES % (MANUAL) 12 % (16-48); MONOCYTES % (MANUAL) 5 % (0-11.0); NEUTROPHILS % (MANUAL) 76 (42-76)
[2020-01-07] MEDS: GLUCERNA SHAKE 237 ML CAN PO SCH (10:03)
== END 2020-01-07 13:57 | DRG 193 ==
LOC: TELE1 17:50 → GPSOV1 01-03 07:48 → MEDSG1 01-03 09:10 → TELE1 01-04 05:12 → MEDSG1 01-04 07:55
PROVIDERS: ADMIT Student in an Organized Health Care Education/Training Program; ATTEND Family Medicine
DX: J15.9 Unspecified bacterial pneumonia (principal); J96.01 Acute respiratory failure with hypoxia; G93.41 Metabolic encephalopathy; N17.0 Acute kidney failure with tubular necrosis; N13.8 Other obstructive and reflux uropathy; E11.649 Type 2 diabetes mellitus with hypoglycemia without coma; N40.1 Benign prostatic hyperplasia with lower urinary tract symptoms; N18.9 Chronic kidney disease, unspecified; I12.9 Hypertensive chronic kidney disease with stage 1 through stage 4 chronic kidney disease, or unspecified chronic kidney disease; E03.9 Hypothyroidism, unspecified; T38.3X5A Adverse effect of insulin and oral hypoglycemic [antidiabetic] drugs, initial encounter; Y92.9 Unspecified place or not applicable; E11.40 Type 2 diabetes mellitus with diabetic neuropathy, unspecified; D63.8 Anemia in other chronic diseases classified elsewhere; E78.5 Hyperlipidemia, unspecified; F29 Unspecified psychosis not due to a substance or known physiological condition; D72.829 Elevated white blood cell count, unspecified; H40.9 Unspecified glaucoma; Z98.890 Other specified postprocedural states; Z95.2 Presence of prosthetic heart valve; Y95 Nosocomial condition; E11.65 Type 2 diabetes mellitus with hyperglycemia
CPT/HCPCS: 36415; 70450-TC; 80048-TC; 80061-TC; 82962-TC; 83735-TC; 84100-TC; 84443-TC; 85025-TC; 90732; 94799-TC; G0378; J1650; J1815; J2060; J3490; J7050; Q2036; Q9967; U0003

== ENCOUNTER 2020-02-03 18:13 | Inpatient (IN) | payer MEDICARE, OTHER ==
[~2020-02-03] VITALS: Ht 172.7 cm; Wt 76.7 kg
[~2020-02-03 18:13] MED LIST changes: +ACET-868 PO; +ALLA266C2 TP; -BIMA2.5D5 EACHEYE; +BLOO-668 IN; -BUPR75TA21 PO; +DEXT50DI8 IV; +DIVA125C5 PO; -DONE5TAB7 PO; -GLIP5TAB3 PO; -ICOS1CAP PO; +INSU100V3 SQ; +LATA2.5D15 EACHEYE; +LORA-259 PO; +MAG30ORA PO; +MAGN400O6 PO; -METO25TA6 PO; -NETA2.5D EACHEYE; +NUT.237L45 PO; -OLAN5TAB3 PO; -OMEP20TA20 PO; +TEMA7.5C12 PO; -TRAZ-182 PO
--- NOTE | 2020-02-03 18:30 | NUR ---
bib PA frm snf for elevated wbc, and "sacral area" and L thumb wound eval. Patient a/ox3, verbally responsive, breathing even and unlabored, no sob noted, per patient he's not feeling well. No distress noted.
[2020-02-03 18:49] LABS: BASOPHILS # (AUTO) 0.1 /CMM (0.0-0.2); EOSINOPHILS % (AUTO) 4.5 % (0.0-6.0); HEMATOCRIT 32 % (39-51); HEMOGLOBIN 10.1 g/dL (13.5-17.5); LYMPHOCYTES # (AUTO) 1.7 /CMM (0.8-4.8); LYMPHOCYTES % (AUTO) 22.5 % (20.0-44.0); MEAN CORPUSCULAR HGB CONC 32 g/dl (31.0-36.0); MEAN CORPUSCULAR VOLUME 97 fL (80-96); MONOCYTES # (AUTO) 0.3 /CMM (0.1-1.30); MONOCYTES % (AUTO) 4.5 % (2.0-12.0); NEUTROPHILS % (AUTO) 66.5 % (43.0-81.0); PLATELET COUNT (AUTO) 343 /CMM (150-450); RED BLOOD CELL COUNT(AUTO) 3.23 MIL/uL (4.5-6.0); WHITE BLOOD COUNT (AUTO) 7.5 K/uL (4.3-11.0)
[2020-02-03] MEDS ORDERED: VANCOMYCIN 1 GM in IV D5W 250 ML IV ONE (19:00)
[2020-02-03] MEDS ORDERED: PIPERACILLIN /TAZOBACTAM 3.375 G in IV D5W 50 ML IV ONE (19:00)
[2020-02-03 19:02] LABS: CALCIUM, SERUM 8.1 mg/dL (8.5-10.1); CREATININE 1.3 mg/dL (0.6-1.3); POTASSIUM 5.7 mmol/L (3.5-5.1)
[2020-02-03] MEDS ORDERED: MERO1VIA23 IV (19:03)
[2020-02-03] MEDS ORDERED: ZINC220C6 PO (19:03)
[2020-02-03] MEDS ORDERED: MULT-439 PO (19:03)
[2020-02-03] MEDS ORDERED: ASCO500C17 PO (19:03)
--- NOTE | 2020-02-03 19:03 | NUR ---
URINE COLLECTED, SENT TO LAB.
--- NOTE | 2020-02-03 19:04 | NUR ---
PACHECOID SWABBED, SENT TO LAB.
[2020-02-03 19:07] LABS: ALBUMIN 1.8 g/dL (3.4-5.0); BILIRUBIN,TOTAL 0.2 mg/dL (0.2-1.0); TOTAL PROTEIN, SERUM 6.7 g/dL (6.4-8.2)
[2020-02-03] MEDS ORDERED: PIPERACILLIN /TAZOBACTAM 3.375 G VIAL IV ONE (19:10)
--- NOTE | 2020-02-03 19:17 | NUR ---
COVID PCR COLLECTED, SENT TO LAB.
[2020-02-03 19:18] LABS: BILIRUBIN,URINE Negative (NEGATIVE); BLOOD, URINE Moderate Ery/uL (NEGATIVE); COLOR,URINE YELLOW (YELLOW); LEUKOCYTE ESTERASE ,URINE Negative (NEGATIVE); NITRITE, URINE Negative (NEGATIVE); PROTEIN,URINE 30 mg/dl (NEGATIVE); UGLUCOSE Negative (NEGATIVE)
--- NOTE | 2020-02-03 19:18 | NUR ---
ALONZO SPEAKING WITH DR MCALLISTER
--- NOTE | 2020-02-03 19:29 | NUR ---
SPOKE TO THE SON REGARDING PLAN OF CARE. WILL CALL HIM BACK REGARDING UPDATE.
[2020-02-03] MEDS ORDERED: Calcium Gluconate 1GM/10ML 4.65 MEQ in IV D5W 50 ML IV ONE (19:30)
[2020-02-03] MEDS ORDERED: VANCOMYCIN 1 GM VIAL ONE (19:34)
[2020-02-03 19:38] LABS: BACTERIA,URINE Rare /HPF (None Seen); RBC,URINE 21-50 /HPF (0-2); SQUAMOUS EPITHELIAL CELL,UR Few /HPF (None Seen); WBC,URINE NONE SEEN /HPF (0-3)
[2020-02-03] MEDS ORDERED: Calcium Gluconate 0.465 MEQ/ML VIAL IV ONE (19:44)
[2020-02-03] MEDS ORDERED: *INSULIN REGULAR(HUMULIN R)HUM 100 UNIT/ML VIAL SQ PRN (20:00)
[2020-02-03] MEDS ORDERED: DEXTROSE 50%-WATER 50 ML DISP.SYRIN IV PRN ×2 (20:00→23:00)
[2020-02-03] MEDS ORDERED: ASPIRIN 325 MG TABLET PO SCH (20:00)
[2020-02-03] MEDS ORDERED: MAGNESIUM HYDROXIDE 30 ML UDC PO PRN ×2 (20:00→23:00)
[2020-02-03] MEDS ORDERED: INSULIN REGULAR, HUMAN 100 UNIT/ML 3 ML VIAL SQ PRN (20:00)
--- NOTE | 2020-02-03 20:21 | NUR ---
TELE BED 115-2
--- NOTE | 2020-02-03 20:34 | NUR ---
BED CHANGED TO
[2020-02-03] MEDS ORDERED: LORAZEPAM INJ 2 MG/ML VIAL ONE (20:41)
--- NOTE | 2020-02-03 20:45 | NUR ---
CHRISTOFER SALES MD ORDERED ATIVAN 0.5 MG IVP NOW.
--- NOTE | 2020-02-03 20:58 | NUR ---
REPORT GIVEN TO SONALI ZHENG FOR TANI.
--- NOTE | 2020-02-03 20:58 | NUR ---
CALLED LAB REGARDING THE STATUS OF PCR. NOTED THAT LAB HAS THE COVID PCR AND WILL UPDATE FROM "LOG" TO "IPR"
[2020-02-03] MEDS ORDERED: DEXAMETHASONE SOD PHOSPHATE 10 MG/ML VIAL IV SCH (21:00)
[2020-02-03] MEDS ORDERED: LORAZEPAM INJ 2 MG/ML VIAL IV ONE (21:00)
[2020-02-03 21:20] VITALS: BP 127/73
--- NOTE | 2020-02-03 21:20 | NUR ---
INSURANCE CLAIM AUDITORCOMPUTER SYSTEMS TECHNICIAN NOTE RECEIVED PATIENT VIA GURNEY. TRANSFERRED TO WITH NO INJURY. PATIENT IS A/OX1, FARSI SPEAKING, ABLE TO SPEAK SOME WOLOF. ABLE TO MAKE BASIC NEEDS KNOWN. PATIENT IS CONFUSED, ALERT TO NAME. TOLERATING ROOM AIR. RESPIRATIONS ARE EVEN AND UNLABORED. NO S/S SOB NOTED. NO C/O OR S/S PAIN AT THIS TIME. EXTERNAL TELE MONITOR PLACED ON PATIENT, READS SINUS RHYTHM HR 84. IN NO APPARENT DISTRESS. IV ACCESS IN LEFT HAND #20 PATENT AND SALINE LOCKED. INITIAL PHYSICAL ASSESSMENT COMPLETED AT THIS TIME. SKIN ASSESSMENT COMPLETED, PHOTOS TAKEN AND PLACED IN CHART. SOCIAL MEDIA MARKETING MANAGER OBTAINED VITAL SIGNS, BELONGINGS LIST COMPLETED. BED IS LOW AND LOCKED, HOB ELEVATED IN SEMI FOWLERS, SIDE RAILS UP X3. BED ALARM ON. CALL LIGHT WITHIN REACH. INFORMED PATIENT ON USE OF CALL LIGHT. WILL CONTINUE TO MONITOR.
--- NOTE | 2020-02-03 21:26 | NUR ---
PT TRANSFERED PER ACLS PROTOCOL
[2020-02-03] MEDS ORDERED: SODIUM POLYSTYRENE SULFONATE 15 G/60 ML BOTTLE PO ONE (22:00)
[2020-02-03] MEDS ORDERED: BLOOD SUGAR DIAGNOSTIC 1 EACH STRIP VI SCH (22:00)
--- NOTE | 2020-02-03 22:11 | NUR ---
FRONT OF HOUSE MANAGER NOTE INFORMED DR. ROSADO THAT PATIENT DOES NOT HAVE ADMIT TO ORDER, DIET, AND INFORMED HIM THERE IS A POLST IN THE CHART FOR DNR. AWAITING ORDERS. WILL CONTINUE TO MONITOR.
[2020-02-03] MEDS ORDERED: MAG HYDROX/AL HYDROX/SIMETH 30 ML UDC PO PRN (23:00)
[2020-02-03] MEDS ORDERED: Z GUARD REMEDY 2 OZ OINT TP PRN (23:00)
[2020-02-03] MEDS ORDERED: ONDANSETRON HCL/PF 4 MG/2 ML VIAL IVP PRN (23:00)
[2020-02-03] MEDS ORDERED: ACETAMINOPHEN 325 MG TABLET PO PRN (23:00)
[2020-02-03] MEDS ORDERED: HYDROCODONE/APAP 5/325MG TABLET PO PRN (23:00)
[2020-02-03] MEDS: GABAPENTIN 100 MG CAPSULE PO SCH (23:16)
[2020-02-03] MEDS: SIMVASTATIN 20 MG TABLET PO SCH (23:17)
[2020-02-03] MEDS: ENOXAPARIN SODIUM 40 MG/0.4 ML DISP.SYRIN SQ SCH (23:19)
[2020-02-03] MEDS: LATANOPROST EYE DROP 0.005% 2.5 ML BOTTLE EACHEYE SCH (23:19)
[2020-02-03] MEDS: AMLODIPINE BESYLATE 5 MG TABLET PO SCH (23:25)
[2020-02-04] VITALS: BP_SYST 144; BP_DIAS 74; BP_DIAS 77
--- NOTE | 2020-02-04 00:34 | NUR ---
CAPTAIN OF GUARDS NOTE INFORMED DR. ROSADO PATIENT REMOVED IV. ATTEMPTED TO INSERT ANOTHER, PATIENT REMOVED WELL. INFORMED PATIENT OF RISK AND BENEFITS OF IV, CONTINUES TO REFUSE. WILL ATTEMPT ANOTHER INSERT FOR IV ABX. MD AWARE OF IV REMOVAL. WILL CONTINUE TO MONITOR.
[2020-02-04] MEDS: PIPERACILLIN /TAZOBACTAM 3.375 G in IV D5W 50 ML IV SCH ×4 (02:00→20:07)
--- NOTE | 2020-02-04 02:04 | NUR ---
telehealth case manager note patient refused iv access once again. can not administer zosyn. md aware. patient also removed tele monitor. refuse to be placed on it again. educated patient on importance of tele monitor. iv access and medications continues to refuse. will continue to monitor.
[2020-02-04 04:00] VITALS: BP 152/87
[2020-02-04 06:54] LABS: BASOPHILS # (AUTO) 0.1 /CMM (0.0-0.2); BASOPHILS % (AUTO) 1.4 % (0.0-2.0); EOSINOPHILS % (AUTO) 4.6 % (0.0-6.0); HEMATOCRIT 31 % (39-51); HEMOGLOBIN 9.9 g/dL (13.5-17.5); LYMPHOCYTES # (AUTO) 1.2 /CMM (0.8-4.8); MEAN CORPUSCULAR HGB CONC 32 g/dl (31.0-36.0); MEAN CORPUSCULAR VOLUME 97 fL (80-96); MONOCYTES # (AUTO) 0.3 /CMM (0.1-1.30); MONOCYTES % (AUTO) 4.1 % (2.0-12.0); NEUTROPHILS # (AUTO) 5.3 /CMM (1.8-8.9); NEUTROPHILS % (AUTO) 72.9 % (43.0-81.0); PLATELET COUNT (AUTO) 311 /CMM (150-450); RED BLOOD CELL COUNT(AUTO) 3.18 MIL/uL (4.5-6.0); WHITE BLOOD COUNT (AUTO) 7.3 K/uL (4.3-11.0)
[2020-02-04] MEDS: BLOOD SUGAR DIAGNOSTIC 1 EACH STRIP VI SCH ×4 (07:01→21:23)
[2020-02-04] MEDS: LEVOTHYROXINE SODIUM 137 MCG TABLET PO SCH (07:01)
[2020-02-04 07:14] LABS: C-REACTIVE PROTEIN 2.8 mg/dL (0.0-0.9)
[2020-02-04 07:16] LABS: CREATININE 1.1 mg/dL (0.6-1.3); MAGNESIUM 1.9 mg/dL (1.8-2.4); PHOSPHORUS 3.4 mg/dL (2.5-4.9); POTASSIUM 4.6 mmol/L (3.5-5.1)
--- NOTE | 2020-02-04 07:43 | NUR ---
SHAPER SETTER CLOSING NOTE PATIENT ON ISOLATION TO R/O COVID. A/OX1. REMAINS TOLERATING ROOM AIR. NO RESP DISTRESS NOTED. NO C/O OR S/S PAIN T/O SHIFT. PATIENT REFUSED TO WEAR TELE MONITOR. NO DISTRESS NOTED. PATIENT REMOVED IV AND REFUSE TO PLACE ANOTHER. BED REMAINS LOW AND LOCKED, HOB ELEVATED IN SEMI FOWLERS, SIDE RAILS UP X3. BED ALARM ON. CALL LIGHT WITHIN REACH. WILL ENDORSE TO NEXT SHIFT.
[2020-02-04 08:00] VITALS: BP 127/75
--- NOTE | 2020-02-04 08:20 | NUR ---
GOLD MARKER OPENING NOTES RECEIVED PATIENT IN BED, AWAKE, A/O X 1, CONFUSED, SPEAKING TO SELF. PATIENT ON ROOM AIR AT THIS TIME; TOLERATING WELL; BREATHING IS EVEN AND UNLABORED; NO SOB PRESENT. PATIENT REFUSES TELE BOX. NO COMPLAINS OF PAIN. IV ACCESS IS MISSING; PATIENT REFUSES NEW IV LINE; WILL TRY LATER. SAFETY PRECAUTIONS IN PLACE; BED IN LOW POSITION AND LOCKED, RAILS UP X2, CALL LIGHT WITHIN REACH. WILL CONTINUE TO MONITOR PATIENT.
[2020-02-04] MEDS ORDERED: ASPIRIN EC 325 MG TABLET.DR PO SCH (09:00)
[2020-02-04] MEDS: TRAMADOL HCL 50 MG TABLET PO SCH ×2 (09:38→16:53)
[2020-02-04] MEDS: ASPIRIN 325 MG TABLET PO SCH (09:38)
[2020-02-04] MEDS: GABAPENTIN 400 MG CAPSULE PO SCH (09:38)
[2020-02-04] MEDS: DIVALPROEX SODIUM 125 MG CAP.SPRINK PO SCH ×3 (09:38→16:53)
[2020-02-04] MEDS: AMLODIPINE BESYLATE 5 MG TABLET PO SCH ×2 (09:39→21:23)
[2020-02-04 10:26] LABS: EOSINOPHILS % (MANUAL) 2 % (0-4); LYMPHOCYTES % (MANUAL) 15 % (16-48); MONOCYTES % (MANUAL) 4 % (0-11.0); NEUTROPHILS % (MANUAL) 78 (42-76); PROMYELOCYTES % 1 % (0-0)
[2020-02-04 10:36] LABS: THYROID STIMULATING HORMONE 38.886 uIU/mL (0.358-3.74)
--- NOTE | 2020-02-04 11:16 | NUR ---
WOUND CARE CONSULT: PT PRESENTS WITH WOUNDS TO MIDBACK, LEFT THUMB, RT ARM AND RT ANKLE, ALL PRESENT ON ADMISSION. RECOMMEND SURGICAL AND DPM CONSULTS. DR HUMBERTO CAMARILLO AND DR SINHA NOTIFIED OF CONSULT REQUEST. BACK WOUND AND UPPER EXTREMITY WOUNDS ARE UNKNOWN ETIOLOGY. RECOMMENDATIONS MADE FOR WOUND CARE AND SKIN PROTECTION. DISCUSSED WITH NURSING STAFF. MD IN AGREEMENT WITH PLAN OF CARE. Addendum: 02/04/20 at 1125 by DONTA PETER WNDNU DEFER TO PODIATRY FOR LOWER EXTREMITY WOUND.
[2020-02-04 12:00] VITALS: BP_SYST 121; BP_SYST 122; BP_DIAS 61; BP_DIAS 80
[2020-02-04] MEDS: NEOMY SULF/BACITRAC ZN/POLY 15 GM TUBE TP SCH (12:06)
[2020-02-04] MEDS: VANCOMYCIN 1 GM in IV D5W 250 ML IV SCH (13:11)
--- NOTE | 2020-02-04 18:47 | NUR ---
BALLROOM DANCER CLOSING NOTES PATIENT IN BED, ASLEEP, A/O X 1 DURING THE DAY, CONFUSED. PATIENT ON ROOM AIR AT THIS TIME; TOLERATING WELL; BREATHING IS EVEN AND UNLABORED; NO SOB PRESENT DURING THE DAY. PATIENT REFUSES TELE BOX. NO COMPLAINS OF PAIN. IV ACCESS ON R WRIST G #20 SL. ALL NEEDS ATTENDED TO THROUGHOUT THE DAY. WOUND CARE DONE. SAFETY PRECAUTIONS IN PLACE; BED IN LOW POSITION AND LOCKED, RAILS UP X2, CALL LIGHT WITHIN REACH. WILL ENDORSE TO DOOR MAKER NURSE.
--- NOTE | 2020-02-04 19:50 | NUR ---
HAND ROUNDER NOTE: PATIENT RESTING IN BED, NO ACUTE DISTRESS NOTED. BREATHING EVEN AND UNLABORED, NO SOB NOTED. IV TO RIGHT WRIST IN PLACE. NO S/S OF HYPER/HYPOGLYCEMIA NOTED. PATIENT REFUSES TO WEAR TELE MONITOR. ISOLATION PRECAUTIONS OBSERVED. BED LOCKED AND IN LOWEST POSITION, CALL LIGHT IN REACH, WILL CONTINUE TO MONITOR. Addendum: 02/05/20 at 0319 by TOY DEL VALLE RN PATIENT REFUSED TO WEAR TELE MONITOR, KEEPS REMOVING LEADS. INSTRUCTED ON IMPORTANCE OF TELE MONITOR, BUT STILL REFUSES.
[2020-02-04 20:00] VITALS: BP 130/95
[2020-02-04] MEDS: SIMVASTATIN 20 MG TABLET PO SCH (21:18)
[2020-02-04] MEDS: GABAPENTIN 100 MG CAPSULE PO SCH (21:20)
[2020-02-04] MEDS: ENOXAPARIN SODIUM 40 MG/0.4 ML DISP.SYRIN SQ SCH (21:34)
[2020-02-04] MEDS: LATANOPROST EYE DROP 0.005% 2.5 ML BOTTLE EACHEYE SCH (21:34)
--- NOTE | 2020-02-04 22:28 | NUR ---
SOUP PERSON NOTES SPOKE WITH JIMMEI, FROM LAB, PATIENT PCR RESULT NEGATIVE; PRIMARY NURSE MADE AWARE
[2020-02-04] MEDS: *INSULIN REGULAR(HUMULIN R)HUM 100 UNIT/ML VIAL SQ PRN (23:01)
--- NOTE | 2020-02-04 23:05 | NUR ---
ELECTRONIC CALIBRATION TECHNICIAN NOTE: PATIENT BLOOD SUGAR LEVEL 151MG/DL, PATIENT TO RECEIVE 2 UNITS OF INSULIN PER SLIDING SCALE. NO S/S OF HYPER/HYPOGLYCEMIA NOTED. SNACKS AT BEDSIDE. WILL CONTINUE TO MONITOR.
[2020-02-05] VITALS: BP 133/67
[2020-02-05] MEDS: PIPERACILLIN /TAZOBACTAM 3.375 G in IV D5W 50 ML IV SCH ×4 (01:40→19:56)
--- NOTE | 2020-02-05 02:30 | NUR ---
MEMBERSHIP SECRETARY NOTE: REPORT GIVEN TO WEI, PATIENT TRANSFERRED TO ROOM 323-2, PATIENT OFF FLOOR IN STABLE CONDITION. BED LOCKED AND IN LOWEST POSITION, WILL CONTINUE TO MONITOR.
--- NOTE | 2020-02-05 04:00 | NUR ---
TELE/RN NOTE Patient arrived via [facility] @0235. VS: BP140/59 P74 R20 T98.1 O295% on RA. No signs of acute distress. Patient in stable condition. Will continue to monitor.
[2020-02-05] MEDS: VANCOMYCIN 1 GM in IV D5W 250 ML IV SCH ×2 (05:04→23:12)
[2020-02-05] MEDS: BLOOD SUGAR DIAGNOSTIC 1 EACH STRIP VI SCH ×4 (06:57→21:20)
[2020-02-05] MEDS: LEVOTHYROXINE SODIUM 137 MCG TABLET PO SCH (06:58)
[2020-02-05 07:24] LABS: BASOPHILS # (AUTO) 0.1 /CMM (0.0-0.2); BASOPHILS % (AUTO) 1.7 % (0.0-2.0); EOSINOPHILS % (AUTO) 5.8 % (0.0-6.0); HEMATOCRIT 30 % (39-51); LYMPHOCYTES # (AUTO) 1.6 /CMM (0.8-4.8); LYMPHOCYTES % (AUTO) 21.4 % (20.0-44.0); MEAN CORPUSCULAR HGB CONC 33 g/dl (31.0-36.0); MEAN CORPUSCULAR VOLUME 94 fL (80-96); MONOCYTES # (AUTO) 0.5 /CMM (0.1-1.30); NEUTROPHILS % (AUTO) 65.1 % (43.0-81.0); PLATELET COUNT (AUTO) 295 /CMM (150-450); RED BLOOD CELL COUNT(AUTO) 3.19 MIL/uL (4.5-6.0); WHITE BLOOD COUNT (AUTO) 7.6 K/uL (4.3-11.0)
--- NOTE | 2020-02-05 07:26 | NUR ---
TELE/RN CLOSING NOTE Patient asleep in bed, A/O x1, pleasant. Breath sounds even, unlabored, some wheezing heard on inspiration. On room air saturating well. Skin warm, pink, dry, appropriate for ethnicity. Abdomen round, soft, non-tender. BS active. Patient is incontinent. Patient void 2x, no bowel movement. IV site right wrist 20g, saline locked, patent and intact, no redness or infiltration. All needs met. Medications administered as ordered. Bed in low position, wheels locked, side rails up x2, call light within reach.
--- NOTE | 2020-02-05 07:30 | NUR ---
OPERATING ROOM AIDE OPENING NOTES RECEIVED PATIENT IN BED, AWAKE, A/O X 1, CONFUSED. PATIENT ON ROOM AIR AT THIS TIME; TOLERATING WELL; BREATHING IS EVEN AND UNLABORED WITH SOME WHEEZING PRESENT. IV ACCESS ON R WRIST G #20 PRESENT AND INTACT. SAFETY PRECAUTIONS IN PLACE; BED IN LOW POSITION AND LOCKED, RAILS UP X2, CALL LIGHT WITHIN REACH. WILL CONTINUE TO MONITOR PATIENT.
[2020-02-05] MEDS: NEOMY SULF/BACITRAC ZN/POLY 15 GM TUBE TP SCH (08:48)
[2020-02-05] MEDS: HYDROGEL DRESSING 90 GM TUBE TP SCH (08:48)
[2020-02-05] MEDS: GABAPENTIN 400 MG CAPSULE PO SCH (08:54)
[2020-02-05] MEDS: AMLODIPINE BESYLATE 5 MG TABLET PO SCH ×2 (08:54→20:46)
[2020-02-05] MEDS: TRAMADOL HCL 50 MG TABLET PO SCH ×2 (08:54→16:26)
[2020-02-05] MEDS: ASPIRIN 325 MG TABLET PO SCH (08:54)
[2020-02-05] MEDS: DIVALPROEX SODIUM 125 MG CAP.SPRINK PO SCH ×3 (08:55→16:25)
[2020-02-05 09:43] LABS: C-REACTIVE PROTEIN 2.5 mg/dL (0.0-0.9); CALCIUM, SERUM 7.8 mg/dL (8.5-10.1); CREATININE 1.1 mg/dL (0.6-1.3); MAGNESIUM 2.1 mg/dL (1.8-2.4); PHOSPHORUS 3.1 mg/dL (2.5-4.9); POTASSIUM 4.1 mmol/L (3.5-5.1)
--- NOTE | 2020-02-05 16:25 | NUR ---
MS RN NOTES PATIENT FACE-TIMED WITH DAUGHTER
--- NOTE | 2020-02-05 18:52 | NUR ---
OVERHEAD CRANE TECHNICIAN CLOSING NOTES PATIENT REMAINS IN BED, AWAKE, A/O X 1, CONFUSED AND FORGETFUL. PATIENT ON ROOM AIR DURING THE DAY; TOLERATING WELL; BREATHING IS EVEN AND UNLABORED WITH SOME WHEEZING PRESENT. IV ACCESS ON R WRIST G #20 PRESENT AND INTACT. ALL NEEDS ATTENDED DURING THE DAY. PATIENT CLEAN AND DRY. SAFETY PRECAUTIONS IN PLACE; BED IN LOW POSITION AND LOCKED, RAILS UP X2, CALL LIGHT WITHIN REACH. WILL ENDORSE TO GENERAL SUPERINTENDENT NURSE.
--- NOTE | 2020-02-05 19:10 | NUR ---
RN OPENING NOTES Received patient awake, resting on bed. A/O x1, no s/sx of discomfort noted at this time. On fall and aspiration precautions. Will continue to monitor accordingly.
[2020-02-05 20:00] VITALS: BP 127/49
[2020-02-05 20:26] VITALS: BP 127/49
[2020-02-05] MEDS: ENOXAPARIN SODIUM 40 MG/0.4 ML DISP.SYRIN SQ SCH (20:43)
[2020-02-05] MEDS: GABAPENTIN 100 MG CAPSULE PO SCH (21:19)
[2020-02-05] MEDS: SIMVASTATIN 20 MG TABLET PO SCH (21:19)
[2020-02-05] MEDS: LATANOPROST EYE DROP 0.005% 2.5 ML BOTTLE EACHEYE SCH (21:21)
[2020-02-05] MEDS: *INSULIN REGULAR(HUMULIN R)HUM 100 UNIT/ML VIAL SQ PRN (21:45)
[2020-02-06] MEDS: PIPERACILLIN /TAZOBACTAM 3.375 G in IV D5W 50 ML IV SCH ×4 (01:36→19:59)
[2020-02-06] MEDS: LEVOTHYROXINE SODIUM 137 MCG TABLET PO SCH (06:17)
[2020-02-06 06:24] LABS: BASOPHILS # (AUTO) 0.1 /CMM (0.0-0.2); BASOPHILS % (AUTO) 1.4 % (0.0-2.0); EOSINOPHILS % (AUTO) 3.5 % (0.0-6.0); HEMATOCRIT 31 % (39-51); LYMPHOCYTES # (AUTO) 1.6 /CMM (0.8-4.8); LYMPHOCYTES % (AUTO) 20.4 % (20.0-44.0); MEAN CORPUSCULAR HGB CONC 32 g/dl (31.0-36.0); MEAN CORPUSCULAR VOLUME 96 fL (80-96); MONOCYTES # (AUTO) 0.5 /CMM (0.1-1.30); MONOCYTES % (AUTO) 6.5 % (2.0-12.0); NEUTROPHILS # (AUTO) 5.3 /CMM (1.8-8.9); NEUTROPHILS % (AUTO) 68.2 % (43.0-81.0); PLATELET COUNT (AUTO) 309 /CMM (150-450); RED BLOOD CELL COUNT(AUTO) 3.22 MIL/uL (4.5-6.0); WHITE BLOOD COUNT (AUTO) 7.8 K/uL (4.3-11.0)
--- NOTE | 2020-02-06 06:39 | NUR ---
RN CLOSING NOTES Pt asleep on bed, no distress/discomfort noted. All nursing needs attended, due meds given as ordered. No new unusualities noted. Kept on bed clean, dry and comfortable. On fall and aspiration precautions. Endorsed.
[2020-02-06 06:47] LABS: CALCIUM, SERUM 7.4 mg/dL (8.5-10.1); CREATININE 1.1 mg/dL (0.6-1.3); MAGNESIUM 1.9 mg/dL (1.8-2.4); PHOSPHORUS 3.1 mg/dL (2.5-4.9); POTASSIUM 4.1 mmol/L (3.5-5.1)
[2020-02-06 06:56] LABS: C-REACTIVE PROTEIN 1.8 mg/dL (0.0-0.9)
[2020-02-06 08:00] VITALS: BP 166/90
[2020-02-06] MEDS: BLOOD SUGAR DIAGNOSTIC 1 EACH STRIP VI SCH ×4 (08:10→21:28)
[2020-02-06] MEDS: ASPIRIN 325 MG TABLET PO SCH (08:48)
[2020-02-06] MEDS: GABAPENTIN 400 MG CAPSULE PO SCH (08:48)
[2020-02-06] MEDS: DIVALPROEX SODIUM 125 MG CAP.SPRINK PO SCH ×3 (08:48→17:12)
[2020-02-06] MEDS: TRAMADOL HCL 50 MG TABLET PO SCH ×2 (08:50→17:12)
[2020-02-06] MEDS: AMLODIPINE BESYLATE 5 MG TABLET PO SCH ×2 (08:50→21:27)
[2020-02-06] MEDS: HYDROGEL DRESSING 90 GM TUBE TP SCH (08:55)
[2020-02-06] MEDS: NEOMY SULF/BACITRAC ZN/POLY 15 GM TUBE TP SCH (08:55)
[2020-02-06 09:28] LABS: EOSINOPHILS % (MANUAL) 4 % (0-4); LYMPHOCYTES % (MANUAL) 18 % (16-48); MONOCYTES % (MANUAL) 7 % (0-11.0); MYELOCYTES % 1 % (0-0); NEUTROPHILS % (MANUAL) 70 (42-76)
[2020-02-06] MEDS: *INSULIN REGULAR(HUMULIN R)HUM 100 UNIT/ML VIAL SQ PRN ×2 (11:54→21:30)
--- NOTE | 2020-02-06 15:05 | NUR ---
RN MS OPENING NOTES RECEIVED PATIENT RESTING IN BED, AWAKE A/OX1, PT CONFUSED AND FORGETFUL, SPEAKS FARSI AND SOME LIMITED MACEDONIAN. PT IS ON RA WITH NO S/S OF SOB, BREATHING EVEN AND UNLABORED AND IN NO ACUTE RESPIRATORY DISTRESS. IV TO RT WRIST #20G PATENT AND INTACT, FLUSHING WELL KEPT SL. BED IS AT LOWEST AND LOCKED POSITION WITH SIDE RAILS UPX3 AND CALL LIGHT WITH IN REACH, WILL CONTINUE TO MONITOR PATIENT THROUGH SHIFT.
[2020-02-06 16:00] VITALS: BP 106/69
--- NOTE | 2020-02-06 18:28 | NUR ---
RN MS CLOSING NOTES PATIENT RESTING IN BED, AWAKE A/OX1, CONFUSED AND FORGETFUL, SPEAKS FARSI AND SOME LIMITED BULGARIAN. PT IS ON RA WITH NO S/S OF SOB, BREATHING EVEN AND UNLABORED AND IN NO ACUTE RESPIRATORY DISTRESS. IV TO RT WRIST #20G PATENT AND INTACT, FLUSHING WELL KEPT SL. PT NPO AFTER MIDNIGHT. CONSENT SIGNED FOR ABD AORTIC ANGIO. BED IS AT LOWEST AND LOCKED POSITION WITH SIDE RAILS UPX3 AND CALL LIGHT WITH IN REACH, WILL ENDORSE TO ONCOMING SHIFT.
[2020-02-06] MEDS ORDERED: VANCOMYCIN 1 GM in IV D5W 250 ML IV SCH (18:30)
--- NOTE | 2020-02-06 19:30 | NUR ---
MS RN OPENING NOTES RECEIVED PATIENT IN BED, ALERT AND ORIENTED X 2. VERBALLY RESPONSIVE AND ABLE TO FOLLOW DIRECTIONS. BREATHING REGULAR AND UNLABORED ON ROOM AIR. RIGHT WRITS G20 IV LINE INTACT AND PATENT, FLUSHING WELL WITH NO BLEEDING OR S/S OF INFILTRATION NOTED. NO S/S OF PAIN/DISCOMFORT NOTED AT THIS TIME. BED LOW AND LOCKED ON SEMI FOWLERS POSITION, CALL LIGHT IN REACH. WILL CONTINUE TO MONITOR.
[2020-02-06 20:00] VITALS: BP 128/71
[2020-02-06] MEDS: SIMVASTATIN 20 MG TABLET PO SCH (21:27)
[2020-02-06] MEDS: ENOXAPARIN SODIUM 40 MG/0.4 ML DISP.SYRIN SQ SCH (21:27)
[2020-02-06] MEDS: GABAPENTIN 100 MG CAPSULE PO SCH (21:27)
[2020-02-06] MEDS: LATANOPROST EYE DROP 0.005% 2.5 ML BOTTLE EACHEYE SCH (21:28)
--- NOTE | 2020-02-06 22:00 | NUR ---
MS RN NOTES ADVISED ON NOTHING BY MOUTH STARTING MIDNIGHT. NOTIFIED REGARDING PATIENT GOING ON NPO WITH NO ORDERS FOR IV FLUIDS AND DIABETIC, ORDERS GIVEN TO START D5 1/2NS AT 75CC/HR.
[2020-02-06] MEDS: VANCOMYCIN 1 GM in IV D5W 250 ML IV SCH (22:42)
[2020-02-07] VITALS (30 sets, daily range): BP systolic 105–172; BP diastolic 47–95
[2020-02-07] MEDS ORDERED: IV D5/0.45 NACL 1,000 ML IV ONE
[2020-02-07] MEDS: PIPERACILLIN /TAZOBACTAM 3.375 G in IV D5W 50 ML IV SCH ×4 (01:24→21:19)
[2020-02-07] MEDS: BLOOD SUGAR DIAGNOSTIC 1 EACH STRIP VI SCH ×4 (06:35→22:35)
[2020-02-07] MEDS: LEVOTHYROXINE SODIUM 137 MCG TABLET PO SCH (06:35)
[2020-02-07] MEDS: INSULIN REGULAR, HUMAN 100 UNIT/ML 3 ML VIAL SQ PRN ×2 (06:35→22:30)
--- NOTE | 2020-02-07 06:35 | NUR ---
MS RN CLOSING NOTES PATIENT IN BED, ALERT AND ORIENTED X 2. AFEBRILE WITH NO S/S OF DISTRESS OBSERVED. RIGHT WRITS G20 IV LINE PATENT AND FLUSHING WELL. NO S/S OF PAIN/DISCOMFORT NOTED AT THIS TIME. BED LOW AND LOCKED ON SEMI FOWLERS POSITION, CALL LIGHT IN REACH. WILL ENDORSE TO MORNING SHIFT FOR TANI.
[2020-02-07 07:23] LABS: BASOPHILS # (AUTO) 0.2 /CMM (0.0-0.2); BASOPHILS % (AUTO) 2.1 % (0.0-2.0); EOSINOPHILS % (AUTO) 3.9 % (0.0-6.0); HEMATOCRIT 29 % (39-51); HEMOGLOBIN 9.8 g/dL (13.5-17.5); LYMPHOCYTES # (AUTO) 1.5 /CMM (0.8-4.8); MEAN CORPUSCULAR HGB CONC 33 g/dl (31.0-36.0); MEAN CORPUSCULAR VOLUME 95 fL (80-96); MONOCYTES # (AUTO) 0.5 /CMM (0.1-1.30); MONOCYTES % (AUTO) 6.8 % (2.0-12.0); NEUTROPHILS # (AUTO) 4.8 /CMM (1.8-8.9); NEUTROPHILS % (AUTO) 66.2 % (43.0-81.0); PLATELET COUNT (AUTO) 309 /CMM (150-450); WHITE BLOOD COUNT (AUTO) 7.2 K/uL (4.3-11.0)
[2020-02-07 07:43] LABS: CALCIUM, SERUM 7.7 mg/dL (8.5-10.1); CREATININE 1.2 mg/dL (0.6-1.3); MAGNESIUM 2.1 mg/dL (1.8-2.4); PHOSPHORUS 3.3 mg/dL (2.5-4.9)
[2020-02-07] MEDS ORDERED: IV NS 0.9% 1,000 ML ONE (07:46)
[2020-02-07] MEDS ORDERED: IODIXANOL 300 ML IV ONE (07:46)
[2020-02-07] MEDS ORDERED: LIDOCAINE HCL/MPF 1% 30 ML VIAL IJ ONE (07:47)
--- NOTE | 2020-02-07 08:00 | NUR ---
RN NOTES PATIENT TRANSFERRED TO WAITER/WAITRESS CLUB FOR SCHEDULED PROCEDURE.
[2020-02-07] MEDS ORDERED: FENTANYL PF 100MCG/2ML AMPUL ONE (08:44)
[2020-02-07] MEDS ORDERED: MIDAZOLAM HCL 2 MG/2ML VIAL ONE (08:44)
[2020-02-07] MEDS: TRAMADOL HCL 50 MG TABLET PO SCH ×2 (09:00→18:44)
[2020-02-07] MEDS: DIVALPROEX SODIUM 125 MG CAP.SPRINK PO SCH ×3 (09:00→18:44)
[2020-02-07] MEDS: HYDROGEL DRESSING 90 GM TUBE TP SCH (09:00)
[2020-02-07] MEDS: GABAPENTIN 400 MG CAPSULE PO SCH (09:00)
[2020-02-07] MEDS: AMLODIPINE BESYLATE 5 MG TABLET PO SCH ×2 (09:00→21:18)
[2020-02-07] MEDS: ASPIRIN 325 MG TABLET PO SCH (09:00)
[2020-02-07] MEDS: NEOMY SULF/BACITRAC ZN/POLY 15 GM TUBE TP SCH (09:00)
[2020-02-07] MEDS ORDERED: diphenhydrAMINE HCL 50 MG/ML VIAL ONE (09:18)
--- NOTE | 2020-02-07 10:05 | NUR ---
RISK LEAD RECEIVED PT FROM FURNACE PROCESS SUPERVISOR BY BED. PT AWAKE AND ALERT, FARSI SPEAKING, FOLLOWING COMMANDS. PT ORIENTED TO NAME ACCORDING TO BILINGUAL FARSI SPEAKING STAFF. LEFT FEMORAL CATH SITE CLEAN AND DRY. WEAK DISTAL PULSE PRESENT.
--- NOTE | 2020-02-07 12:00 | NUR ---
RIVERBOAT MASTER PT DOWNGRADED TO TELE STATUS. AWAITING BED. LEFT FEMORAL SITE CLEAN AND DRY.
--- NOTE | 2020-02-07 14:00 | NUR ---
SCHOOL COUNSELOR SPOKE WITH SON ON PHONE, UPDATE GIVEN. TOLD HIM THAT PT HAD BEEN DOWNGRADED TO TELE AND WOULD BE MOVING WHEN BED IS AVAILABLE.
[2020-02-07] MEDS ORDERED: NICARDIPINE HCL 25 MG/10 ML VIAL IV ONE (14:12)
[2020-02-07] MEDS: *INSULIN REGULAR(HUMULIN R)HUM 100 UNIT/ML VIAL SQ PRN (18:07)
--- NOTE | 2020-02-07 18:20 | NUR ---
tele banquet prep cook: notes received pt from icu via bed with dx: s/p Left common femoral angiogram -Closure of the left common femoral artery using Angio-Seal device. dressing intact. oriented to room and surroundings. kept comfortable. place pt on tele monitor. in no apparent distress noted. will continue to monitor.
--- NOTE | 2020-02-07 18:30 | NUR ---
SENIOR DATA DEVELOPER PT TRANSFERRED TO TELE 3RD FLOOR BY BED WITH MONITOR. REPORT GIVEN TO MARY. PT AWAKE, ALERT, FOLLOWING COMMANDS, ORIENTED TO NAME. LEFT FEMORAL SITE CLEAN AND DRY.
--- NOTE | 2020-02-07 19:10 | NUR ---
tele senior informatica developer: notes report given to isaiah Fontanarn) for continuity of care.
[2020-02-07] MEDS: SIMVASTATIN 20 MG TABLET PO SCH (21:17)
[2020-02-07] MEDS: GABAPENTIN 100 MG CAPSULE PO SCH (21:18)
[2020-02-07] MEDS: ENOXAPARIN SODIUM 40 MG/0.4 ML DISP.SYRIN SQ SCH (21:21)
[2020-02-07] MEDS: LATANOPROST EYE DROP 0.005% 2.5 ML BOTTLE EACHEYE SCH (21:46)
[2020-02-07] MEDS: VANCOMYCIN 1 GM in IV D5W 250 ML IV SCH (22:38)
--- NOTE | 2020-02-07 23:37 | NUR ---
MS RN OPENING NOTE Patient awake in bed, A/O x1-2, farsi speaking. On bed rest. Breathing even, clear, unlabored on RA. No acute distress or SOB noted. Skin is warm, pink, dry, intact. IV site R hand 20g and LAC 20g saline locked, patent and intact. No signs of redness or infiltration. Patient is incontinent, voids via diaper. Bed in low position, wheels locked, side rails up x2, call light within reach.
[2020-02-08] VITALS: BP 140/85
[2020-02-08] MEDS: PIPERACILLIN /TAZOBACTAM 3.375 G in IV D5W 50 ML IV SCH ×2 (02:38→08:21)
[2020-02-08 04:00] VITALS: BP_SYST 140; BP_SYST 142; BP_DIAS 69; BP_DIAS 85
--- NOTE | 2020-02-08 06:01 | NUR ---
MS RN CLOSING NOTE Patient awake in bed, A/O x1-2, in and out of confusion. Breathing even, clear, unlabored on RA. No acute distress or SOB noted. IV site LAC 20g saline locked, patent and intact. No signs of redness or infiltration. Patient is incontinent, voids via diaper. Wound dressings changed. Bed in low position, wheels locked, side rails up x2, call light within reach.
[2020-02-08] MEDS: BLOOD SUGAR DIAGNOSTIC 1 EACH STRIP VI SCH ×2 (06:36→12:41)
[2020-02-08] MEDS: LEVOTHYROXINE SODIUM 137 MCG TABLET PO SCH (06:53)
[2020-02-08 07:34] LABS: BASOPHILS # (AUTO) 0.1 /CMM (0.0-0.2); BASOPHILS % (AUTO) 1.3 % (0.0-2.0); EOSINOPHILS % (AUTO) 1.4 % (0.0-6.0); HEMATOCRIT 31 % (39-51); LYMPHOCYTES # (AUTO) 1.5 /CMM (0.8-4.8); LYMPHOCYTES % (AUTO) 17.2 % (20.0-44.0); MEAN CORPUSCULAR HGB CONC 33 g/dl (31.0-36.0); MEAN CORPUSCULAR VOLUME 96 fL (80-96); MONOCYTES # (AUTO) 0.6 /CMM (0.1-1.30); MONOCYTES % (AUTO) 6.5 % (2.0-12.0); NEUTROPHILS # (AUTO) 6.4 /CMM (1.8-8.9); NEUTROPHILS % (AUTO) 73.6 % (43.0-81.0); PLATELET COUNT (AUTO) 283 /CMM (150-450); WHITE BLOOD COUNT (AUTO) 8.6 K/uL (4.3-11.0)
[2020-02-08 07:52] LABS: CALCIUM, SERUM 7.9 mg/dL (8.5-10.1); CREATININE 1.1 mg/dL (0.6-1.3); MAGNESIUM 2.1 mg/dL (1.8-2.4); PHOSPHORUS 2.8 mg/dL (2.5-4.9); POTASSIUM 3.7 mmol/L (3.5-5.1)
--- NOTE | 2020-02-08 07:59 | NUR ---
MS/RN OPENING NOTE RECEIVED PATIENT FROM NETWORK TECHNICIAN NURSE. PATIENT A/O X1-2 FARSI SPEAKING WITH LITTLE BULGARIAN. PATIENT ON ROOM AIR, TOLERATING WELL. BREATHING EVEN, NON LABORED, NO SOB NOTED. NO ACUTE DISTRESS NOTED. LAC #20 INTACT AND PATENT. SAFETY MEASURES IN PLACE, BED LOCKED AND IN LOWEST POSITION, WILL CONTINUE TO MONITOR AND ENSURE SAFETY.
[2020-02-08 08:00] VITALS: BP 150/80
[2020-02-08] MEDS: GABAPENTIN 400 MG CAPSULE PO SCH (08:21)
[2020-02-08] MEDS: AMLODIPINE BESYLATE 5 MG TABLET PO SCH (08:21)
[2020-02-08] MEDS: ASPIRIN 325 MG TABLET PO SCH (08:21)
[2020-02-08] MEDS: DIVALPROEX SODIUM 125 MG CAP.SPRINK PO SCH (08:21)
[2020-02-08] MEDS: NEOMY SULF/BACITRAC ZN/POLY 15 GM TUBE TP SCH (08:22)
[2020-02-08] MEDS: TRAMADOL HCL 50 MG TABLET PO SCH (08:22)
[2020-02-08] MEDS: HYDROGEL DRESSING 90 GM TUBE TP SCH (08:22)
[2020-02-08] MEDS ORDERED: VANC1PLA9 IV (09:44)
[2020-02-08] MEDS ORDERED: ASPI-992 PO (09:44)
[2020-02-08] MEDS ORDERED: PIPE3.379 IV (09:44)
[2020-02-08 12:00] VITALS: BP 131/63
--- NOTE | 2020-02-08 13:35 | NUR ---
MS/WATERPROOF BAG SEWER PATIENT WAS DISCHARGED TO [facility] IN STABLE CONDITION. LAC #20 INTACT AND PATENT WAS NOT REMOVED FOR SNF TO ACCESS FOR IV ANTIBIOTICS. NAME BANDS REMOVED. ALL PERSONAL BELONGINGS ACCOUNTED FOR ON BELONGING LIST AND SIGNED OFF BY NURSE(S). DISCHARGE INSTRUCTIONS/REPORT WAS GIVEN TO RODRIGO AT [facility] AT 1300. PARAMEDICS ARRIVED AT 1325. PATIENT LEFT UNIT FLOOR WITH 2 PARAMEDICS VIA GURNEY IN STABLE CONDITION.
== END 2020-02-08 13:45 | DRG 280 ==
LOC: ER 18:16 → TELE2 20:46 → TELE 02-05 03:12 → MED 02-05 11:29 → ICU 02-07 10:21 → TELE 02-07 18:16 → MED 02-08 11:21
PROVIDERS: ADMIT Internal Medicine; ATTEND Nurse Practitioner Acute Care
PROC: B41GYZZ Fluoroscopy of Left Lower Extremity Arteries using Other Contrast (ICD-10-PCS; principal; 2020-02-07)
DX: E11.51 Type 2 diabetes mellitus with diabetic peripheral angiopathy without gangrene (principal); I21.A1 Myocardial infarction type 2; G93.41 Metabolic encephalopathy; E43 Unspecified severe protein-calorie malnutrition; N17.0 Acute kidney failure with tubular necrosis; J18.9 Pneumonia, unspecified organism; L97.319 Non-pressure chronic ulcer of right ankle with unspecified severity; L02.512 Cutaneous abscess of left hand; E87.5 Hyperkalemia; I10 Essential (primary) hypertension; E11.42 Type 2 diabetes mellitus with diabetic polyneuropathy; Z98.62 Peripheral vascular angioplasty status; Z79.4 Long term (current) use of insulin; Z79.899 Other long term (current) drug therapy; Z95.2 Presence of prosthetic heart valve; Z79.890 Hormone replacement therapy; E03.9 Hypothyroidism, unspecified; D53.9 Nutritional anemia, unspecified; E11.622 Type 2 diabetes mellitus with other skin ulcer; E11.621 Type 2 diabetes mellitus with foot ulcer; M62.562 Muscle wasting and atrophy, not elsewhere classified, left lower leg; M62.561 Muscle wasting and atrophy, not elsewhere classified, right lower leg; F03.90 Unspecified dementia, unspecified severity, without behavioral disturbance, psychotic disturbance, mood disturbance, and anxiety; I70.0 Atherosclerosis of aorta; S31.000A Unspecified open wound of lower back and pelvis without penetration into retroperitoneum, initial encounter; X58.XXXA Exposure to other specified factors, initial encounter; Y92.9 Unspecified place or not applicable
CPT/HCPCS: 36415; 71045-TC; 75630-TC; 80048-TC; 80061-TC; 80076-TC; 80202-TC; 81001; 82728-TC; 82962-TC; 83540-TC; 83605-TC; 83735-TC; 84100-TC; 84439-TC; 84443-TC; 84484-TC; 85025-TC; 85730-TC; 86140-TC; 87040-TC; 87081-TC; 87086-TC; 93307-TC; 97112-TC; 97116-TC; 97530-TC; A6248; A6253; C1894; C9803; G0378; G0500; J0610; J1100; J1200; J1644; J1650; J1815; J2060; J2250; J2543; J3010; J3370; J3490; J7030; J7050; J7060; Q9967; U0003

== ENCOUNTER 2020-02-19 22:51 | Inpatient (IN) | payer MEDICARE, OTHER ==
[~2020-02-19] VITALS: Ht 175.3 cm; Wt 72.6 kg
[~2020-02-19 22:51] MED LIST changes: -ALLA266C2 TP; +ASCO500C17 PO; +ASPI-992 PO; -LORA-259 PO; +MULT-439 PO; -NUT.237L45 PO; +PIPE3.379 IV; -SODI15DR7 EACHEYE; -TEMA7.5C12 PO; +VANC1PLA9 IV; +ZINC220C6 PO
[2020-02-19] MEDS ORDERED: CEFTRIAXONE 1GM BAG (ER ONLY) 50 ML IV ONE (23:13)
[2020-02-19] MEDS ORDERED: AZITHROMYCIN 500 MG VIAL ONE (23:14)
[2020-02-19] MEDS ORDERED: DEXAMETHASONE SOD PHOSPHATE 10 MG/ML VIAL ONE (23:14)
--- NOTE | 2020-02-19 23:14 | NUR ---
BIBRA FROM SNF TO ER BED 7. AAOX2. NOT IN RESP DISTRESS, BREATHING EVEN AND UNLLABORED BUT PT IS SATTING @ 89% ON RA. PT IS BROUGHT IN FOR HYPOXIA. PT IS COVID POSITIVE AT THE FACILITY. PT IS AFEBRILE UPON PRESENTATION. RECTAL TEMP NOTED @ 98.5. WAS AT THE BEDSIDE FOR EVAL. ORDERS RECEIVED, NOTED AND CARRIRED OUT.
--- NOTE | 2020-02-19 23:20 | NUR ---
PT IN ON NC @ 5LPM, SATTING AT 98%
[2020-02-19] MEDS ORDERED: DEXAMETHASONE SOD PHOSPHATE 10 MG/ML VIAL IV ONE (23:30)
[2020-02-19] MEDS ORDERED: CEFTRIAXONE 1GM BAG (ER ONLY) 1 GM/50 ML PIGGYBACK IV ONE (23:30)
[2020-02-19] MEDS ORDERED: IV NS 0.9% 500 ML BAG IV ONE (23:30)
[2020-02-19] MEDS ORDERED: AZITHROMYCIN 500 MG in IV D5W 250 ML IV ONE (23:30)
[2020-02-19 23:50] LABS: BASOPHILS % (AUTO) 0.4 % (0.0-2.0); HEMATOCRIT 32 % (39-51); HEMOGLOBIN 10.4 g/dL (13.5-17.5); LYMPHOCYTES # (AUTO) 0.3 /CMM (0.8-4.8); LYMPHOCYTES % (AUTO) 9.2 % (20.0-44.0); MEAN CORPUSCULAR HGB CONC 32 g/dl (31.0-36.0); MEAN CORPUSCULAR VOLUME 97 fL (80-96); MONOCYTES # (AUTO) 0.1 /CMM (0.1-1.30); MONOCYTES % (AUTO) 2.7 % (2.0-12.0); NEUTROPHILS # (AUTO) 3.1 /CMM (1.8-8.9); NEUTROPHILS % (AUTO) 87.7 % (43.0-81.0); PLATELET COUNT (AUTO) 149 /CMM (150-450); RED BLOOD CELL COUNT(AUTO) 3.31 MIL/uL (4.5-6.0); WHITE BLOOD COUNT (AUTO) 3.5 K/uL (4.3-11.0)
[2020-02-19 23:58] LABS: CALCIUM, SERUM 8.5 mg/dL (8.5-10.1); CREATININE 1.2 mg/dL (0.6-1.3); POTASSIUM 4.5 mmol/L (3.5-5.1)
--- NOTE | 2020-02-20 00:03 | NUR ---
RUBÉN OLIVEIRA ON THE PHONE WITH THE FAMILY
[2020-02-20 00:12] LABS: ALBUMIN 2.3 g/dL (3.4-5.0); BILIRUBIN,DIRECT 0.1 mg/dL (0.0-0.2); BILIRUBIN,TOTAL 0.3 mg/dL (0.2-1.0); TOTAL PROTEIN, SERUM 7.2 g/dL (6.4-8.2)
--- NOTE | 2020-02-20 00:18 | NUR ---
PT COMBATIVE AND UNCOOPERATIVE, NON NIGERIAN SPEAKING. PULLED OUT IV AND REMOVED MONITOR WIRES. IV RESTARTED AND WIRES REATTACHED. WILL CONTINUE TO CLOSELY MONITOR
--- NOTE | 2020-02-20 00:54 | NUR ---
er talking to dr. rod junior regarding pt admission.
--- NOTE | 2020-02-20 02:00 | NUR ---
pt placed on restraints to prevent jessie out iv and removing oxygen, vss, will continue to monitor
--- NOTE | 2020-02-20 07:09 | NUR ---
pt remains in bed, still combative and trying to remove lines and oxygen, soft restraints removed for rom and readjusted. vss, will endorse to day shift for genoveva
[2020-02-20] MEDS ORDERED: DEXA4TAB PO (08:24)
[2020-02-20] MEDS ORDERED: AMIN30LI2 PO (08:24)
[2020-02-20] MEDS ORDERED: ASPI-992 PO (08:24)
[2020-02-20] MEDS ORDERED: AZIT250T13 PO (08:24)
[2020-02-20] MEDS ORDERED: ACET-868 PO (08:24)
--- NOTE | 2020-02-20 08:36 | NUR ---
PROVIDED PT CARE. PT IS CLEAN AND DRY. GOOD KIRAN CARE RENDERED.
[2020-02-20 10:18] LABS: BASOPHILS % (AUTO) 0.1 % (0.0-2.0); EOSINOPHILS % (AUTO) 0.4 % (0.0-6.0); HEMATOCRIT 33 % (39-51); HEMOGLOBIN 10.3 g/dL (13.5-17.5); LYMPHOCYTES # (AUTO) 0.4 /CMM (0.8-4.8); LYMPHOCYTES % (AUTO) 13.1 % (20.0-44.0); MEAN CORPUSCULAR HGB CONC 31 g/dl (31.0-36.0); MEAN CORPUSCULAR VOLUME 100 fL (80-96); MONOCYTES % (AUTO) 0.7 % (2.0-12.0); NEUTROPHILS # (AUTO) 2.9 /CMM (1.8-8.9); NEUTROPHILS % (AUTO) 85.7 % (43.0-81.0); PLATELET COUNT (AUTO) 128 /CMM (150-450); WHITE BLOOD COUNT (AUTO) 3.4 K/uL (4.3-11.0)
[2020-02-20] MEDS: FUROSEMIDE 40 MG/4 ML VIAL IV SCH ×3 (10:25→18:20)
[2020-02-20 10:28] LABS: ALBUMIN 2.2 g/dL (3.4-5.0); BILIRUBIN,TOTAL 0.2 mg/dL (0.2-1.0); CALCIUM, SERUM 8.4 mg/dL (8.5-10.1); CREATININE 1.1 mg/dL (0.6-1.3); MAGNESIUM 2.3 mg/dL (1.8-2.4); PHOSPHORUS 4.2 mg/dL (2.5-4.9); POTASSIUM 4.5 mmol/L (3.5-5.1); TOTAL PROTEIN, SERUM 7.1 g/dL (6.4-8.2)
--- NOTE | 2020-02-20 10:28 | NUR ---
MARY CARMEN, PT'S SONE CALLED AND GIVEN UPDTAE REGARDING HIS FATHER.
[2020-02-20 11:29] LABS: LYMPHOCYTES % (MANUAL) 11 % (16-48); MONOCYTES % (MANUAL) 3 % (0-11.0); NEUTROPHILS % (MANUAL) 86 (42-76)
--- NOTE | 2020-02-20 14:38 | NUR ---
pt urinated and wet himself, pt care rendered. pt clean and dry
--- NOTE | 2020-02-20 16:54 | NUR ---
Patient resides at [facility] [phone]. He is wheelchair bound, requires max to total assist with adl's. Patient is tested COVID-19 positive. [facility] will take patient back once stable for SNF. Addendum: 02/20/20 at 1654 by KAUSHAL ORNELAS RN Amended: Links added.
[2020-02-20] MEDS ORDERED: ZOLPIDEM TARTRATE 5 MG TABLET PO PRN (19:00)
[2020-02-20] MEDS ORDERED: MAG HYDROX/AL HYDROX/SIMETH 30 ML UDC PO PRN (19:00)
[2020-02-20] MEDS ORDERED: MAGNESIUM HYDROXIDE 30 ML UDC PO PRN (19:00)
[2020-02-20] MEDS ORDERED: ONDANSETRON HCL/PF 4 MG/2 ML VIAL IVP PRN (19:00)
[2020-02-20] MEDS ORDERED: Z GUARD REMEDY 2 OZ OINT TP PRN (19:00)
[2020-02-20] MEDS ORDERED: ACETAMINOPHEN 325 MG TABLET PO PRN (19:00)
[2020-02-20] MEDS ORDERED: HYDROCODONE/APAP 5/325MG TABLET PO PRN (19:00)
[2020-02-20] MEDS: AZITHROMYCIN 500 MG in IV D5W 250 ML IV SCH (19:30)
[2020-02-20] MEDS ORDERED: AZITHROMYCIN 500 MG VIAL ONE (19:37)
--- NOTE | 2020-02-20 19:37 | NUR ---
PATIENT REPOSITIONED. PROVIDED WITH CLEAN SHEETS AND PERICARE.
[2020-02-20] MEDS ORDERED: ENOXAPARIN SODIUM 40 MG/0.4 ML DISP.SYRIN SQ ONE (21:37)
[2020-02-20] MEDS: ENOXAPARIN SODIUM 40 MG/0.4 ML DISP.SYRIN SQ SCH (21:49)
--- NOTE | 2020-02-20 22:53 | NUR ---
PATIENT'S TORSO AND LOWER EXTREMITIES CLEANED. PERICARE PROVIDED. TURNED TO THE LEFT SIDE. SHEETS ARE CHANGED. CLEAN GOWN PROVIDED.
--- NOTE | 2020-02-20 23:49 | NUR ---
PATIENT IS REPOSITIONED AND CLEANED. PATIENT IS BREATHING EVENLY AND UNLABORED ON 4L OF N/C. NOT IN ANY DISTRESS. CONNECTED TO THE MECHANICAL DESIGN ENGINEER. VSS.
--- NOTE | 2020-02-21 03:38 | NUR ---
PATIENT IS TRANSFERRED TO A CLEAN CHAMPLAIN STANDARD BED.
[2020-02-21 05:44] LABS: BASOPHILS % (AUTO) 0.6 % (0.0-2.0); HEMATOCRIT 33 % (39-51); HEMOGLOBIN 10.9 g/dL (13.5-17.5); LYMPHOCYTES # (AUTO) 0.4 /CMM (0.8-4.8); LYMPHOCYTES % (AUTO) 7.9 % (20.0-44.0); MEAN CORPUSCULAR HGB CONC 33 g/dl (31.0-36.0); MEAN CORPUSCULAR VOLUME 97 fL (80-96); MONOCYTES # (AUTO) 0.1 /CMM (0.1-1.30); NEUTROPHILS # (AUTO) 4.2 /CMM (1.8-8.9); NEUTROPHILS % (AUTO) 88.5 % (43.0-81.0); PLATELET COUNT (AUTO) 175 /CMM (150-450); RED BLOOD CELL COUNT(AUTO) 3.45 MIL/uL (4.5-6.0); WHITE BLOOD COUNT (AUTO) 4.7 K/uL (4.3-11.0)
--- NOTE | 2020-02-21 05:45 | NUR ---
DR. HUMBERTO MCBRIDE MD NOTIFIED OF PATIENT'S RAPID AFIB HR 123.
[2020-02-21 06:02] LABS: ALANINE AMINOTRANSFERASE 11 U/L (12-78); ALBUMIN 2.2 g/dL (3.4-5.0); ALKALINE PHOSPHATASE 70 U/L (46-116); ASPARTATE AMINOTRANSFERASE 29 U/L (15-37); BILIRUBIN,TOTAL 0.3 mg/dL (0.2-1.0); CALCIUM, SERUM 8.5 mg/dL (8.5-10.1); CARBON DIOXIDE 36 mmol/L (21-32); CHLORIDE 104 mmol/L (98-107); CREATININE 1.1 mg/dL (0.6-1.3); GLUCOSE 132 mg/dL (74-106); MAGNESIUM 2.2 mg/dL (1.8-2.4); PHOSPHORUS 3.4 mg/dL (2.5-4.9); POTASSIUM 4.3 mmol/L (3.5-5.1); SODIUM SERUM 145 mmol/L (136-145); TOTAL PROTEIN, SERUM 6.9 g/dL (6.4-8.2); UREA NITROGEN, BLOOD 35 mg/dL (7-18)
[2020-02-21 06:15] LABS: CHOLESTEROL 197 mg/dL (<200); HDL CHOLESTEROL 42 mg/dL (40-60); LDL 111 mg/dL (0-99); THYROID STIMULATING HORMONE 23.046 uIU/mL (0.358-3.74); TRIGLYCERIDES 119 mg/dL (30-150)
[2020-02-21] MEDS: PANTOPRAZOLE 40 MG TABLET.DR PO SCH (07:30)
--- NOTE | 2020-02-21 07:42 | NUR ---
REPORT GIVEN TO NEGAR ZHENG FOR TANI.
[2020-02-21] MEDS: CEFTRIAXONE 1 G in IV D5W 50 ML IV SCH (09:00)
[2020-02-21] MEDS ORDERED: CEFTRIAXONE 1GM BAG (ER ONLY) 1 GM/50 ML PIGGYBACK IV SCH (09:00)
--- NOTE | 2020-02-21 10:40 | NUR ---
RECEIVED PT AWAKE IN BED AT THIS TIME. AOX1-2. WITH PERIODS OF CONFUSION, PT NOTED ON OXYGEN 4LPM VIA NC. IV ACCESS NOTED IN RAC G#18, INTACT, PATENT AND FLUSHING WELL. SAFETY PRECAUTIONS IN PLACE AND MAINTAINED AT ALL TIMES, BED IN LOWEST LOCKED POSITION, HOB ELEVATED, CALL LIGHT WITHIN REACH, WILL CONTINUE TO MONITOR
[2020-02-21] MEDS: DEXAMETHASONE SOD PHOSPHATE 10 MG/ML VIAL IV SCH (15:34)
--- NOTE | 2020-02-21 19:00 | NUR ---
PT NOTED WITH HEART RATE IN THE 124-135. DR GOLDBERG AND CHARGE NURSE MADE AWARE. PER DR GOLDBERG, ADMINISTER LABETOLOL 10 MG IV ONCE. ORDERS ENTERED. WILL CARRY OUT ORDERS AND CONTINUE TO MONITOR
--- NOTE | 2020-02-21 19:07 | NUR ---
RN CLOSING NOTES PT AWAKE IN BED AT THIS TIME.PT REMAINED STABLE THROUGHOUT SHIFT. ALL CARE, NEED, MEDICATIONS AND TREATMENT ADMINISTERED ANTICIPATED PER ORDER. PT KEPT CLEAN AND DRY. PT REPOSITION Q2HR AND PRN. SAFETY PRECAUTION IN PLACE AND MAINTAINED AT ALL TIMES. BED IN LOWEST LOCKED POSITION, HOB ELEVATED, SIDE RAILS UP X 2, CALL LIGHT AND TABLE WITHIN REACH. WILL ENDORSE TO JUVENILE COURT LIAISON NURSE FOR TANI
--- NOTE | 2020-02-21 19:20 | NUR ---
REC'D REPORT FROM IMMACULATE RN FOR TANI. PT AWAKE, IN BED. STILL ON CONTINUOUS SLEEP MEDICINE PHYSICIAN AND PULSE OX. WILL CONTINUE TO MONITOR
[2020-02-21] MEDS ORDERED: LABETALOL 20 MG/4 ML VIAL IV ONE (19:30)
[2020-02-21] MEDS: AZITHROMYCIN 500 MG in IV D5W 250 ML IV SCH (19:30)
[2020-02-21] MEDS: ENOXAPARIN SODIUM 40 MG/0.4 ML DISP.SYRIN SQ SCH (21:20)
--- NOTE | 2020-02-21 23:31 | NUR ---
NOTED TACHYCARDIA AND AGITATION. DR. PAUL MADE AWARE. PER MD ORDER, WILL ADMINISTER ATIVAN 0.5MG PO X1 NOW
[2020-02-21] MEDS ORDERED: LORAZEPAM 0.5 MG TABLET ONE (23:40)
--- NOTE | 2020-02-21 23:44 | NUR ---
PT CONFUSED AND UNABLE TO TOLERATE PO, DR. HERNANDEZ MADE AWARE. PER MD ORDER, WILL ADMINISTER ATIVAN 0.5 MG IV X1 NOW
[2020-02-21] MEDS ORDERED: LORAZEPAM INJ 2 MG/ML VIAL ONE (23:54)
[2020-02-22] MEDS ORDERED: LORAZEPAM INJ 2 MG/ML VIAL IV ONE
[2020-02-22] MEDS ORDERED: LORAZEPAM 0.5 MG TABLET PO PRN
[2020-02-22 04:08] LABS: HEMOGLOBIN 9.5 g/dL (13.5-17.5); LYMPHOCYTES # (AUTO) 0.3 /CMM (0.8-4.8); MONOCYTES # (AUTO) 0.1 /CMM (0.1-1.30); WHITE BLOOD COUNT (AUTO) 2.6 K/uL (4.3-11.0)
[2020-02-22 04:11] LABS: CALCIUM, SERUM 8.8 mg/dL (8.5-10.1); CREATININE 1.1 mg/dL (0.6-1.3); MAGNESIUM 2.2 mg/dL (1.8-2.4); PHOSPHORUS 3.8 mg/dL (2.5-4.9)
[2020-02-22 04:12] LABS: BASOPHILS % (AUTO) 0.3 % (0.0-2.0); EOSINOPHILS % (AUTO) 0.1 % (0.0-6.0); HEMATOCRIT 30 % (39-51); LYMPHOCYTES % (AUTO) 9.6 % (20.0-44.0); MEAN CORPUSCULAR HGB CONC 32 g/dl (31.0-36.0); MEAN CORPUSCULAR VOLUME 97 fL (80-96); MONOCYTES % (AUTO) 3.7 % (2.0-12.0); NEUTROPHILS # (AUTO) 2.3 /CMM (1.8-8.9); NEUTROPHILS % (AUTO) 86.3 % (43.0-81.0); PLATELET COUNT (AUTO) 158 /CMM (150-450); RED BLOOD CELL COUNT(AUTO) 3.04 MIL/uL (4.5-6.0)
--- NOTE | 2020-02-22 05:41 | NUR ---
PT CLEANED, CHANGED, REPOSITIONED, AND BED SHEETS CHANGED. NO ACUTE DISTRESS NOTED AT THIS TIME. PT RESTING COMFORTABLY IN BED. CALL LIGHT WITHIN REACH. WILL CONTINUE TO MONITOR
--- NOTE | 2020-02-22 07:21 | NUR ---
REPORT GIVEN TO MARCE LYNCH FOR TANI
[2020-02-22] MEDS: PANTOPRAZOLE 40 MG TABLET.DR PO SCH (08:00)
[2020-02-22] MEDS: CEFTRIAXONE 1 G in IV D5W 50 ML IV SCH (09:25)
[2020-02-22] MEDS: DEXAMETHASONE SOD PHOSPHATE 10 MG/ML VIAL IV SCH (09:25)
--- NOTE | 2020-02-22 15:39 | NUR ---
room [id number]
--- NOTE | 2020-02-22 15:43 | NUR ---
report given to renetta ZHENG for genoveva
[2020-02-22 16:00] VITALS: BP 150/84
--- NOTE | 2020-02-22 16:00 | NUR ---
PATIENT ARRIVED VIA GURNEY BY SENIOR SQL DBA AND MARCE LYNCH. PATIENT HAS 5L OF OXYGEN SIMPLE MASK. VITALS BP 150/84 P 115 RR 28 TEMP 97.7F AND SPO2 97%. A/O X 0 IV L AC #18 G INTACT SL. SAFETY MEASURES ARE APPLIED, BED IS LOCKED AND LOWEST POSITION, SIDE RAILS UP X 2. CALL LIGHT WITHIN REACH WILL CONTINUE TO MONITOR.
--- NOTE | 2020-02-22 16:22 | NUR ---
wheeled patient via gurney accompanied by EMT and RN in no distress. RN at bedside to assume care.
--- NOTE | 2020-02-22 19:30 | NUR ---
PHARMACY TECH CUSTOMER SERVICE OPENING NOTE PATIENT AWAKE IN BED. A/OX1; PRIMARY LANGUAGE FARSI. ON 5L MASK; NO S/S OF ACUTE RESPIRATORY DISTRESS; BREATHING IS EVEN AND UNLABORED. NO S/S OF PAIN NOTED. SOFT BILATERAL WRIST RESTRAINTS PRESENT FOR PATIENT SAFETY; SKIN CIRCULATION WNL. TELE MONITOR READING AFIB. CONTACT/DROPLET PREACAUTIONS IN PLACE FOR COVID 19. SAFETY MEASURES IN PLACE AND PATIENT'S NEEDS MET. BED LOCKED, HOB ELEVATED, SIDE RAILS X2, CALL LIGHT WITHIN REACH. WILL CONTINUE TO MONITOR.
--- NOTE | 2020-02-22 19:41 | NUR ---
GRADALL OPERATOR OPEN NOTES A/O X 0 WITH NO SIGNS OF DISTRESS ON 5L OF OXYGEN SIMPLE MASK. IV L AC #18 G INTACT SL. SOFT WRIST RESTRAINS ON NO SIGNS OF EDEMA, GOOD CAPILLARY REFILL. NO SIGNS OF PAIN. PATIENT KEPT CLEAN AND DRY. ALL NEEDS, CARE, TREATMENT,AND MEDICATIONS WERE ADMINISTERED ANTICIPATED PER ORDER. SAFETY MEASURES ARE APPLIED, BED IS IN LOW POSITION SIDE RAILS UP X 2. CALL LIGHT WITHIN REACH WILL ENDORSE TO THE UNDERWRITING INTERNSHIP NURSE.
--- NOTE | 2020-02-22 19:45 | NUR ---
MUSIC PROMOTER CLOSED NOTES A/O X 0 WITH NO SIGNS OF DISTRESS ON 5L OF OXYGEN SIMPLE MASK. IV L AC #18 G INTACT SL. SOFT WRIST RESTRAINS ON NO SIGNS OF EDEMA, GOOD CAPILLARY REFILL. NO SIGNS OF PAIN. PATIENT KEPT CLEAN AND DRY. ALL NEEDS, CARE, TREATMENT,AND MEDICATIONS WERE ADMINISTERED ANTICIPATED PER ORDER. SAFETY MEASURES ARE APPLIED, BED IS IN LOW POSITION SIDE RAILS UP X 2. CALL LIGHT WITHIN REACH WILL ENDORSE TO THE MORTGAGE MANAGER NURSE.
[2020-02-22 20:00] VITALS: BP_SYST 140; BP_DIAS 84; BP_DIAS 89
[2020-02-22] MEDS: AZITHROMYCIN 500 MG in IV D5W 250 ML IV SCH (20:26)
--- NOTE | 2020-02-22 20:27 | NUR ---
POMOLOGIST NOTE ZITHROMAX IVPB DELIVERED BY PHARMACY PAST SCHEDULED TIME AT 1900
[2020-02-22] MEDS: ENOXAPARIN SODIUM 40 MG/0.4 ML DISP.SYRIN SQ SCH (20:30)
[2020-02-23] VITALS: BP 123/97
[2020-02-23 04:00] VITALS: BP 121/92
[2020-02-23] MEDS: PANTOPRAZOLE 40 MG TABLET.DR PO SCH (06:33)
--- NOTE | 2020-02-23 07:00 | NUR ---
CONCESSIONS MANAGER CLOSING NOTES PATIENT AWAKE IN BED. A/OX1. ON 5L MASK; NO S/S OF ACUTE RESPIRATORY DISTRESS; BREATHING IS EVEN AND UNLABORED. NO S/S OF PAIN NOTED. SOFT BILATERAL WRIST RESTRAINTS REMAIN PRESENT FOR PATIENT SAFETY; SKIN CIRCULATION WNL. TELE MONITOR READING AFIB. SAFETY MEASURES IN PLACE AND PATIENT'S NEEDS MET. BED LOCKED, HOB ELEVATED, SIDE RAILS X2, CALL LIGHT WITHIN REACH. WILL ENDORSE TO DAY SHIFT RN PLAN OF CARE.
--- NOTE | 2020-02-23 07:48 | NUR ---
SNAPPER ON CLOSING NOTES RECEIVED PATIENT AWAKE IN BED. A/OX1. ON 5L MASK; NO S/S OF ACUTE RESPIRATORY DISTRESS; BREATHING IS EVEN AND UNLABORED. NO S/S OF SOB, NO S/S OF PAIN NOTED. SOFT BILATERAL WRIST RESTRAINTS PRESENT FOR PATIENT SAFETY; SKIN CIRCULATION WNL. TELE MONITOR READING AFIB. ALL SAFETY MEASURES IN PLACE, BED AT LOWEST POSITION AND LOCKED, WITH HOB ELEVATED, AND SIDE RAILS UPX2, CALL LIGHT IS WITHIN REACH. WILL CONTINUE TO MONITOR PATIENT THROUGH SHIFT.
[2020-02-23 08:00] VITALS: BP 124/69
[2020-02-23 08:05] LABS: BASOPHILS % (AUTO) 0.2 % (0.0-2.0); HEMATOCRIT 30 % (39-51); HEMOGLOBIN 9.8 g/dL (13.5-17.5); LYMPHOCYTES # (AUTO) 0.5 /CMM (0.8-4.8); LYMPHOCYTES % (AUTO) 8.5 % (20.0-44.0); MEAN CORPUSCULAR HGB CONC 33 g/dl (31.0-36.0); MEAN CORPUSCULAR VOLUME 101 fL (80-96); MONOCYTES # (AUTO) 0.2 /CMM (0.1-1.30); MONOCYTES % (AUTO) 3.3 % (2.0-12.0); NEUTROPHILS # (AUTO) 4.8 /CMM (1.8-8.9); PLATELET COUNT (AUTO) 202 /CMM (150-450); RED BLOOD CELL COUNT(AUTO) 2.97 MIL/uL (4.5-6.0); WHITE BLOOD COUNT (AUTO) 5.5 K/uL (4.3-11.0)
[2020-02-23] MEDS: DEXAMETHASONE SOD PHOSPHATE 10 MG/ML VIAL IV SCH (08:30)
[2020-02-23] MEDS: CEFTRIAXONE 1 G in IV D5W 50 ML IV SCH (08:30)
[2020-02-23 08:34] LABS: CALCIUM, SERUM 8.7 mg/dL (8.5-10.1); MAGNESIUM 2.4 mg/dL (1.8-2.4); PHOSPHORUS 3.5 mg/dL (2.5-4.9); POTASSIUM 4.3 mmol/L (3.5-5.1)
--- NOTE | 2020-02-23 09:45 | NUR ---
WOUND CARE CONSULT: REVIEWED CHART, NURSING DOCUMENTATION AND PHOTOS WHICH INDICATE FOOT WOUNDS AND RT ARM SKIN TEAR, PRESENT ON ADMISSION . RECOMMENDATIONS MADE FOR SKIN PROTECTION AND WOUND CARE. PODIATRY CONSULT CALLED TO DR SINHA. PT IS AGITATED AND COMBATIVE AT TIMES PER NURSING STAFF. MD IN AGREEMENT WITH PLAN OF CARE.
[2020-02-23] MEDS: LORAZEPAM INJ 2 MG/ML VIAL IV PRN (11:59)
[2020-02-23 12:00] VITALS: BP 134/84
[2020-02-23] MEDS ORDERED: MAGNESIUM HYDROXIDE 30 ML UDC PO PRN (13:30)
[2020-02-23] MEDS ORDERED: INSULIN REGULAR, HUMAN 100 UNIT/ML 3 ML VIAL SQ PRN ×2 (13:30→23:00)
[2020-02-23] MEDS ORDERED: ACETAMINOPHEN 325 MG TABLET PO PRN (13:30)
[2020-02-23] MEDS ORDERED: MAG HYDROX/AL HYDROX/SIMETH 30 ML UDC PO PRN (13:30)
[2020-02-23] MEDS: PROSTAT (PYXIS) 30 ML UDC PO SCH (14:51)
[2020-02-23] MEDS: ASCORBIC ACID 500 MG TABLET PO SCH (14:51)
[2020-02-23] MEDS: CYANOCOBALAMIN 500 MCG TABLET PO SCH (14:51)
[2020-02-23] MEDS: TIMOLOL 0.5% SOLN OPHTH 5 ML BOTTLE EACHEYE SCH (16:20)
[2020-02-23] MEDS: DIVALPROEX SODIUM 125 MG CAP.SPRINK PO SCH (16:21)
[2020-02-23] MEDS: BRIMONIDINE TARTRATE OPHT SOLN 5 ML BOTTLE OP SCH (16:21)
[2020-02-23] MEDS: METFORMIN 500 MG TABLET PO SCH (16:21)
[2020-02-23] MEDS: TRAMADOL HCL 50 MG TABLET PO SCH (16:22)
[2020-02-23] MEDS: BLOOD SUGAR DIAGNOSTIC 1 EACH STRIP IN SCH ×2 (16:50→22:42)
[2020-02-23] MEDS ORDERED: Medication Not On Formulary EA (Cyclosporine (Restasis) 1 DROP) EACHEYE SCH (17:00)
[2020-02-23] MEDS: AZITHROMYCIN 500 MG in IV D5W 250 ML IV SCH (18:01)
--- NOTE | 2020-02-23 18:10 | NUR ---
UTILITY PLANT OPERATIVE CLOSING NOTES. PATIENT RESTING IN BED, A/OX1. CONFUSED. PT ON OXYGEN VIA MASK AT 5L. WITH NO S/S OF ACUTE RESPIRATORY DISTRESS; BREATHING IS EVEN AND UNLABORED. NO S/S OF SOB, NO S/S OF PAIN OR DISCOMFORT NOTED AT THIS TIME. SOFT BILATERAL WRIST RESTRAINTS REMAIN IN PLACE FOR PATIENT SAFETY; SKIN CIRCULATION WNL. IV TO LT AC #[address] TELE MONITOR IN PLACE READING AFIB. ALL SAFETY MEASURES IN PLACE. BED IS AT LOWEST POSITION AND LOCKED WITH HOB ELEVATED, AND SIDE RAILS UPX2, CALL LIGHT IS WITHIN REACH. WILL ENDORSE TO ONCOMING SHIFT.
--- NOTE | 2020-02-23 19:11 | NUR ---
NURSE PRN: CONTINUITY OF CARE Patient in bed, awake, confused, does not follow commands. On Oxygen via simple mask. Bilateral wrist restraints in place, released and reassessed skin with no injury noted. Contact/Droplet isolation maintained.
[2020-02-23 20:00] VITALS: BP_SYST 122; BP_DIAS 62; BP_DIAS 67
[2020-02-23] MEDS ORDERED: GABAPENTIN 100 MG CAPSULE PO SCH (22:00)
[2020-02-23] MEDS ORDERED: LATANOPROST EYE DROP 0.005% 2.5 ML BOTTLE EACHEYE SCH (22:00)
[2020-02-23] MEDS ORDERED: SIMVASTATIN 20 MG TABLET PO SCH (22:00)
[2020-02-23] MEDS: ENOXAPARIN SODIUM 40 MG/0.4 ML DISP.SYRIN SQ SCH (22:40)
--- NOTE | 2020-02-23 22:40 | NUR ---
CHILDREN'S COUNSELOR: ANTICOAGULANT H/H 9.10/30 PLT 202 Lovenox injection given co-signed by MARCE Gonzalez.
[2020-02-23] MEDS: AMLODIPINE BESYLATE 5 MG TABLET PO SCH (22:42)
[2020-02-23] MEDS ORDERED: DEXTROSE 50%-WATER 50 ML DISP.SYRIN IV PRN (23:00)
[2020-02-24] VITALS: BP 115/60
[2020-02-24 00:15] VITALS: BP 118/60
[2020-02-24] MEDS: LORAZEPAM INJ 2 MG/ML VIAL IV PRN (00:24)
--- NOTE | 2020-02-24 00:26 | NUR ---
ADMISSION NURSE COORDINATOR: RESTLESS Patient in bed, sliding himself to sides of the bed. Restless. PRN Ativan given, will reassess. Bilateral wrist restraints in place.
--- NOTE | 2020-02-24 02:43 | NUR ---
CENTER HUMAN RESOURCES MANAGER: DE SAT Patient appears gasping of air, Oxygen sat 80% on 6L simple mask. Suctioned oral phlegm. Titrated up Oxygen 15 via mask, Oxygen saturation still not improved. Maintained upright posture, maintained on Oxygen. Patient is DNR status with POLST signed by on 01/10/2020.
--- NOTE | 2020-02-24 03:21 | NUR ---
HADOOP CONSULTANT: OXYGEN SATURATION IMPROVED Suctioning done by MARCE Cast. Oxygen saturation improved, now on low 90's. Remains on supplemental Oxygen.
[2020-02-24 04:00] VITALS: BP_SYST 124; BP_SYST 125; BP_DIAS 58; BP_DIAS 88
[2020-02-24 04:10] VITALS: BP 125/88
--- NOTE | 2020-02-24 05:58 | NUR ---
DOUGH MIXING MACHINE OPERATOR: END OF SHIFT REPORT Afib uncontrolled HR 119 in the Tele monitor. Patient is confused, does not follow command. Remains on simple mask at 10L Oxygen, O2 sat in low 90's. On IV Rocephin, afebrile. No BM this shift, incontinent, condom catheter device use. Turned and repositioned. Contact, Droplet isolation with Eye shield protection maintained. Chest xray today, will endorse to oncoming RN.
[2020-02-24 06:56] LABS: BASOPHILS % (AUTO) 0.1 % (0.0-2.0); EOSINOPHILS % (AUTO) 0.1 % (0.0-6.0); HEMATOCRIT 32 % (39-51); HEMOGLOBIN 10.2 g/dL (13.5-17.5); LYMPHOCYTES # (AUTO) 0.3 /CMM (0.8-4.8); MEAN CORPUSCULAR HGB CONC 32 g/dl (31.0-36.0); MEAN CORPUSCULAR VOLUME 105 fL (80-96); MONOCYTES # (AUTO) 0.1 /CMM (0.1-1.30); NEUTROPHILS # (AUTO) 5.7 /CMM (1.8-8.9); NEUTROPHILS % (AUTO) 92.8 % (43.0-81.0); PLATELET COUNT (AUTO) 247 /CMM (150-450); RED BLOOD CELL COUNT(AUTO) 3.02 MIL/uL (4.5-6.0); WHITE BLOOD COUNT (AUTO) 6.1 K/uL (4.3-11.0)
--- NOTE | 2020-02-24 07:02 | NUR ---
LINOTYPIST: RESTRAINTS Patient is calm and no episode of pulling out lines and tubings in the last 4 hours. Bilateral wrist restraints discontinued d/t non required for patient behavior.
--- NOTE | 2020-02-24 07:21 | NUR ---
MANAGER TELECOM: FAMILY UPDATED Called patients family, spoke with Zoila,son, update him on patients current status/condition. Son appreciated the call.
[2020-02-24 07:30] VITALS: BP 67/33
[2020-02-24] MEDS ORDERED: LEVOTHYROXINE SODIUM 137 MCG TABLET PO SCH (07:30)
[2020-02-24] MEDS ORDERED: BLOOD SUGAR DIAGNOSTIC 1 EACH STRIP IN SCH ×2 (07:30→22:00)
[2020-02-24] MEDS: PANTOPRAZOLE 40 MG TABLET.DR PO SCH (07:30)
--- NOTE | 2020-02-24 07:30 | NUR ---
OUTSIDE COLLECTOR NOTES PT IN BED, NON RESPONSIVE TO VERBAL STIMULI, RESPIRATION RATE 30, NOTED WITH LOW BP 67/33, HR 119, O2 SAT OF 77%, PLACED PT ON NON REBREATHER MASK AT 15L, RT CAME AND ASSESSED PT, O2 SAT AT 90%, DR. GOLDBERG INFORMED, AWAITING FOR FURTHER ORDERS.
[2020-02-24 08:04] LABS: CALCIUM, SERUM 8.4 mg/dL (8.5-10.1); CARBON DIOXIDE 35 mmol/L (21-32); CHLORIDE 109 mmol/L (98-107); CREATININE 1.6 mg/dL (0.6-1.3); GLUCOSE 136 mg/dL (74-106); MAGNESIUM 2.6 mg/dL (1.8-2.4); PHOSPHORUS 5.4 mg/dL (2.5-4.9); POTASSIUM 5.2 mmol/L (3.5-5.1); SODIUM SERUM 149 mmol/L (136-145); UREA NITROGEN, BLOOD 52 mg/dL (7-18)
--- NOTE | 2020-02-24 08:16 | NUR ---
WOUND CARE: REVIEWED CHART, NURSING DOCUMENTATION AND PHOTOS WHICH INDICATE (UPON FURTHER INVESTIGATION) SACRAL SCARRING AND MIDBACK WOUND, PRESENT ON ADMISSION. RECOMMENDATIONS MADE FOR WOUND CARE AND SKIN PROTECTION. DISCUSSED WITH [place] LOMBARDI N.P. AND DR HUMBERTO CAMARILLO, SURGICAL [employer]SULTANTS WELL NURSING STAFF. MD IN AGREEMENT WITH PLAN OF CARE.
[2020-02-24] MEDS: AMLODIPINE BESYLATE 5 MG TABLET PO SCH (08:25)
[2020-02-24] MEDS: DIVALPROEX SODIUM 125 MG CAP.SPRINK PO SCH (08:25)
[2020-02-24] MEDS: METFORMIN 500 MG TABLET PO SCH (08:25)
[2020-02-24] MEDS: PROSTAT (PYXIS) 30 ML UDC PO SCH (08:26)
[2020-02-24] MEDS: ASCORBIC ACID 500 MG TABLET PO SCH (08:27)
[2020-02-24] MEDS: CYANOCOBALAMIN 500 MCG TABLET PO SCH (08:27)
[2020-02-24] MEDS ORDERED: HYDROGEL DRESSING 90 GM TUBE TP PRN (08:30)
[2020-02-24] MEDS: TRAMADOL HCL 50 MG TABLET PO SCH (08:31)
[2020-02-24] MEDS: BRIMONIDINE TARTRATE OPHT SOLN 5 ML BOTTLE OP SCH (08:35)
[2020-02-24] MEDS: TIMOLOL 0.5% SOLN OPHTH 5 ML BOTTLE EACHEYE SCH (08:35)
[2020-02-24] MEDS: DEXAMETHASONE SOD PHOSPHATE 10 MG/ML VIAL IV SCH (08:39)
[2020-02-24] MEDS: CEFTRIAXONE 1 G in IV D5W 50 ML IV SCH (08:39)
[2020-02-24] MEDS ORDERED: ASPIRIN 325 MG TABLET PO SCH (09:00)
[2020-02-24] MEDS ORDERED: ZINC SULFATE 220 MG CAPSULE PO SCH (09:00)
[2020-02-24] MEDS ORDERED: GABAPENTIN 400 MG CAPSULE PO SCH (09:00)
[2020-02-24] MEDS ORDERED: MULTIVIT W/MINERALS 1 TAB TABLET PO SCH (09:00)
[2020-02-24] MEDS ORDERED: ACETAMINOPHEN 325 MG TABLET PO SCH (09:00)
[2020-02-24] MEDS ORDERED: HYDROGEL DRESSING 90 GM TUBE TP SCH (09:00)
--- NOTE | 2020-02-24 09:15 | NUR ---
CUSTOMER SERVICES SUPERVISOR NOTES SON MARY CARMEN INFORMED OF CURRENT PT STATUS, PER SON OK TO INTUBATE IF NEEDED, BUT DO NOT RESCUCITATE IF THERE IS NO PULSE.
[2020-02-24 09:30] VITALS: BP 64/23
[2020-02-24] MEDS ORDERED: PHENYLEPHRINE 50 MG in IV NS 0.9% 245 ML IV PRN (09:30)
--- NOTE | 2020-02-24 09:30 | NUR ---
RN NOTES PT STARTED ON MARIEL DRIP ORDERED, ASSISTED BY EAR MACHINE OPERATOR AND [employer] PIPING DESIGNER, MONITORED VS CLOSELY.
[2020-02-24 09:43] LABS: ABG BASE EXCESS 5.2 mmol/L; ABG OXYGEN SATURATION 86.2 % (92.0-98.5); ABG PCO2 190.8 mmHg (35.0-45.0); ABG PO2 73.3 mmHg (75.0-100.0); AaDO2 448.9 mmHg; COHb 0.7 % (0.5-1.5); MetHb 0.6 % (0.0-1.5); O2Hb 85.1 % (94.0-97.0); SITE, ABG Right Femoral; VENT MODE, BG non-rebreather 100%
--- NOTE | 2020-02-24 09:48 | NUR ---
RN NOTES PT INTUBATED BY DR. GERMAN, ASSISTED BY RT'S AND RECOVERY ASSISTANT, CONSENT OBTAINED FROM FAMILY FOR CENTRAL LINE INSERTION.
[2020-02-24] MEDS ORDERED: SODIUM BICARBONATE SYR 50 MEQ/50 ML DISP.SYRIN IV ONE (10:00)
--- NOTE | 2020-02-24 10:05 | NUR ---
RN NOTES MD INSERTED CENTRAL LINE AT THE RIGHT GROIN, PT NON RESPONSIVE TO VERBAL AND PAINFUL STIMULI, NO PULSE SHOWING ON THE MONITOR, NO PULSE PALPATED, PUPILS DILATED, PT PRONOUNCED BY DR. GERMAN.
--- NOTE | 2020-02-24 10:10 | NUR ---
RN NOTES PT SON MARY CARMEN INFORMED OF HIS PT'S PASSING, INFORMED SON THAT PT'S BODY WILL BE MOVED TO THE HOSP[facility] WITHIN 4 HOURS, FAMILY ARRANGING MORTUARY, VERBALIZED UNDERSTANDING.
--- NOTE | 2020-02-24 10:15 | NUR ---
RN NOTES DR. GOLDBERG INFORMED, [facility] [employer] INFORMED, ID # [id number]
[2020-02-24] MEDS ORDERED: FUROSEMIDE 40 MG/4 ML VIAL IV ONE (10:30)
[2020-02-24] MEDS ORDERED: IV D5/0.45 NACL 1,000 ML IV PRN (10:30)
--- NOTE | 2020-02-24 10:30 | NUR ---
RN NOTES POST MORTEM CARE DONE, PLACED IN BODY BAG AND PROPERLY TAGGED.
--- NOTE | 2020-02-24 14:10 | NUR ---
RN NOTES BODY PICKED UP BY [facility], PT HAS NO BELONGINGS.
== END 2020-02-24 10:05 | disposition expired | DRG 871 ==
LOC: ER 22:52 → TRANSITION 02-20 00:19 → TELE2 02-22 15:46 → ICUOV2 02-24 09:28
PROVIDERS: ADMIT Student in an Organized Health Care Education/Training Program; ATTEND Student in an Organized Health Care Education/Training Program
PROC: 0BH17EZ Insertion of Endotracheal Airway into Trachea, Via Natural or Artificial Opening (ICD-10-PCS; principal; 2020-02-24)
PROC: 06HY33Z Insertion of Infusion Device into Lower Vein, Percutaneous Approach (ICD-10-PCS; 2020-02-24)
DX: A41.89 Other specified sepsis (principal); U07.1 COVID-19; N17.0 Acute kidney failure with tubular necrosis; J12.89 Other viral pneumonia; J96.01 Acute respiratory failure with hypoxia; G93.41 Metabolic encephalopathy; I21.A1 Myocardial infarction type 2; J15.9 Unspecified bacterial pneumonia; R65.21 Severe sepsis with septic shock; E43 Unspecified severe protein-calorie malnutrition; J96.02 Acute respiratory failure with hypercapnia; D61.818 Other pancytopenia; I13.0 Hypertensive heart and chronic kidney disease with heart failure and stage 1 through stage 4 chronic kidney disease, or unspecified chronic kidney disease; L97.319 Non-pressure chronic ulcer of right ankle with unspecified severity; E87.2 Acidosis; N18.9 Chronic kidney disease, unspecified; I48.91 Unspecified atrial fibrillation; Z79.4 Long term (current) use of insulin; D53.9 Nutritional anemia, unspecified; Z95.2 Presence of prosthetic heart valve; N40.0 Benign prostatic hyperplasia without lower urinary tract symptoms; E03.9 Hypothyroidism, unspecified; Z98.62 Peripheral vascular angioplasty status; Z79.82 Long term (current) use of aspirin; Z79.899 Other long term (current) drug therapy; Z79.890 Hormone replacement therapy; Z86.19 Personal history of other infectious and parasitic diseases; E11.22 Type 2 diabetes mellitus with diabetic chronic kidney disease; E11.42 Type 2 diabetes mellitus with diabetic polyneuropathy; E11.51 Type 2 diabetes mellitus with diabetic peripheral angiopathy without gangrene; E11.622 Type 2 diabetes mellitus with other skin ulcer; F03.90 Unspecified dementia, unspecified severity, without behavioral disturbance, psychotic disturbance, mood disturbance, and anxiety; I25.10 Atherosclerotic heart disease of native coronary artery without angina pectoris; I50.9 Heart failure, unspecified; L89.159 Pressure ulcer of sacral region, unspecified stage; D69.6 Thrombocytopenia, unspecified; F09 Unspecified mental disorder due to known physiological condition; Z66 Do not resuscitate
CPT/HCPCS: 31720; 36415; 36600; 71045-TC; 80048-TC; 80053-TC; 80061-TC; 80076-TC; 82962-TC; 83605-TC; 83735-TC; 83880; 84100-TC; 84439-TC; 84443-TC; 84484-TC; 85025-TC; 85378-TC; 86140-TC; 87040-TC; 87081-TC; 92526; 92611-TC; A4349; A6248; C1751; G0378; J0456; J0696; J1100; J1650; J1815; J1940; J2060; J2370; J2405; J3490; J7040; J7050; J7060; U0003